=== PATIENT | female | born 1965 | race Caucasian/White ===

== ENCOUNTER 2022-02-12 20:53 | Emergency (ER) | payer MEDICAID, SELFPAY ==
[2022-02-12 21:26] VITALS: BP 120/58; PULSE 84; RESP 18; TEMP 36.6; O2SAT 99
--- NOTE | 2022-02-12 21:39 | CRLHL7_ITS ---
For Patients: As a result of the Century Cures Act, medical imaging exams and procedure reports are released immediately into your electronic medical record. You may view this report before your referring provider. If you have questions, please contact your health care provider. INDICATION: Right flank pain. TECHNIQUE: CT abdomen and pelvis without contrast. COMPARISON: None. FINDINGS: Lower chest: Unremarkable. Liver: Normal in size and attenuation. No suspicious masses. Gallbladder and bile ducts: No stones or inflammation. No biliary dilatation. Pancreas: Unremarkable. No mass or inflammation. Spleen: Normal in size. No masses. Adrenal glands: Right adrenal adenoma, stable from prior. Kidneys: Normal in size. No suspicious masses, stones, or hydronephrosis. GI tract: Redemonstrated mild thickening in the sigmoid colon with adjacent fat stranding (2/104) in small lymph nodes. Diverticulosis of the sigmoid colon. Normal appendix. Vasculature: Abdominal aorta is normal in caliber. Lymph nodes: No lymphadenopathy. Peritoneum/Abdominal Wall: Unremarkable. No sign of mass or infiltration. No free air or significant free fluid. Pelvis: Unremarkable. No pelvic masses. Bones: Unremarkable for age. IMPRESSION: Redemonstrated mild wall thickening, adjacent fat stranding and small lymph nodes adjacent to the mid sigmoid colon. This may represent mild acute uncomplicated diverticulitis similar to prior from June 22, 2021, however the persistence of the imaging finding is somewhat concerning for underlying neoplastic process. Consider post treatment colonoscopy. No renal stones, or hydronephrosis. Appendix is within normal limits. Please note that all CT scans at this facility use dose modulation, iterative reconstruction, and/or weight-based dosing when appropriate to reduce radiation dose to as low as reasonably achievable. Dictated by Ashlee Pulido MD @ 02/12/2022 10:47:49 PM (Electronically Signed)
--- NOTE | 2022-02-12 21:40 | CRLHL7_ITS ---
For Patients: As a result of the Century Cures Act, medical imaging exams and procedure reports are released immediately into your electronic medical record. You may view this report before your referring provider. If you have questions, please contact your health care provider. INDICATION: Right flank/back pain with breathing.. TECHNIQUE: Chest 2 views. COMPARISON: None. FINDINGS: Cardiovascular and mediastinum: Heart size and vasculature are normal in caliber and appearance. Lungs and pleural spaces: Lungs are clear. No sign of pleural effusion. No pneumothorax. Bones and soft tissues: No significant findings. IMPRESSION: No acute or significant findings. Dictated by Ashlee Pulido MD @ 02/12/2022 10:39:44 PM (Electronically Signed)
--- NOTE | 2022-02-12 21:41 | ED.GENADULT ---
HPI - General Adult General Time Seen by Provider: 21:41 Date Seen: 02/12/22 Chief complaint: Urogenital Problems, Female Stated complaint: UTI Headache Body Ache Time Seen by Provider: 02/12/22 21:33 Source: patient Mode of arrival: ambulatory Limitations: no limitations History of Present Illness HPI narrative: 57-year-old female who comes with flank pain and malaise. Patient was diagnosed with urinary tract infection 2 weeks ago, was started on antibiotics and felt better. She is not sure what antibiotic she took. Today she started having some right-sided flank pain, this is worse with breathing and movement. She also notes headache, body ache, nausea without vomiting, and chills. No fevers. No cough or breathing difficulty. No urinary symptoms. No diarrhea. She has taken Tylenol and ibuprofen for her symptoms. Related Data Home Medications Medication Instructions Recorded Confirmed benzonatate 100 mg capsule 100 mg PO Q6H PRN 02/12/22 02/12/22 cetirizine 10 mg tablet 10 mg PO DAILY 02/12/22 02/12/22 cholecalciferol (vitamin D3) 1,250 1,250 mcg PO QWEEK 02/12/22 02/12/22 mcg (50,000 unit) capsule famotidine 20 mg tablet 20 mg PO DAILY 02/12/22 02/12/22 ferrous gluconate 324 mg (38 mg 324 mg PO DAILY 02/12/22 02/12/22 iron) tablet fluticasone propionate 115 2 puff inhalation DAILY 02/12/22 02/12/22 mcg-salmeterol 21 mcg/actuation HFA inhaler (Advair HFA) ibuprofen 800 mg tablet 800 mg PO Q6H PRN 02/12/22 02/12/22 lisinopril 5 mg tablet 5 mg PO DAILY 02/12/22 02/12/22 naproxen 500 mg tablet 500 mg PO Q12H PRN 02/12/22 02/12/22 omeprazole 20 mg tablet,delayed 20 mg PO DAILY 02/12/22 02/12/22 release potassium chloride 20 mEq 20 meq PO BID 02/12/22 02/12/22 tablet,extended release(part/cryst) tiotropium bromide 18 mcg capsule 1 cap inhalation DAILY 02/12/22 02/12/22 with inhalation device (Spiriva with HandiHaler) venlafaxine 150 mg 150 mg PO DAILY 02/12/22 02/12/22 capsule,extended release 24 hr venlafaxine 75 mg capsule,extended 75 mg PO DAILY 02/12/22 02/12/22 release 24 hr Allergies Allergy/AdvReac Type Severity Reaction Status Date / Time No Known Drug Allergies Allergy Verified 02/12/22 21:28 Review of Systems Status of ROS: Reports: 10 or more systems reviewed and unremarkable except as noted in History and below PFSH PFS Medical History (Updated 02/12/22 @ 23:07 by Timoteo Ayala MD) CHF (congestive heart failure) Chronic lower back pain Chronic neck pain COPD (chronic obstructive pulmonary disease) Depression GERD (gastroesophageal reflux disease) H/O drug abuse Hyperlipemia Hypertension Hypokalemia Migraine Personality disorder Vitamin A deficiency Surgical History (Updated 02/12/22 @ 22:26 by Zohaib Church RN) No significant past surgical history Social History Smoking Status: Unknown if ever smoked Non-prescribed substance use: denies use Exam Narrative: Exam Narrative: General: Well-developed and well-nourished, no acute distress Head: Atraumatic and normocephalic Eyes: Pupils are equal reactive, extraocular motions intact, conjunctiva clear ENT: External nose and ears are normal, posterior pharynx without erythema or exudate Neck: No midline cervical tenderness, full spontaneous range of motion the neck, trachea midline, no adenopathy Heart: Regular rate and rhythm no murmurs or thrills Lungs: Clear to auscultation bilaterally without wheezes or crackles Abdomen: Soft, nontender, nondistended with active bowel sounds. Mild right CVA tenderness. Musculoskeletal: No tenderness, deformity, or edema Neurologic: Awake, alert, and oriented x3, no gross focal neurologic deficits, cranial nerves intact as tested Psych: Mood and affect are appropriate Skin: No rashes Const: Vital Signs, click to edit/add: Vital Signs - 24 hr 02/12/22 21:26 Temperature 97.8 F Pulse Rate [Right Pulse Oximeter] 84 Respiratory Rate 18 Blood Pressure [Ri ght Upper Arm] 120/58 L Pulse Oximetry 99 Oxygen Delivery Me thod Room Air Documenting provider has reviewed patient's vital signs: yes Course Course Hospital Course: Patient seen and examined, prior records are reviewed. Differential diagnosis includes but not limited to pyelonephritis, urinary tract infection, ureteral stone with renal colic, pneumonia, musculoskeletal pain, COVID infection, influenza. Patient presents with body aches, subjective fever, headache, and right flank pain. Recent UTI but she has no urinary symptoms at this time. Patient is afebrile with stable vital signs. She does have some right CVA tenderness. Lungs are clear, no abdominal tenderness. Labs, chest x-ray, and CT scan are ordered to evaluate for possible pneumonia or intra-abdominal cause of patient's flank pain including stone or pyelonephritis, appendicitis or acute cholecystitis less likely. IV fluids, Toradol are ordered. Reevaluation(s) Reevaluation #1: CT scans demonstrate findings of acute diverticulitis very similar to prior, Zosyn is ordered. Urinalysis with some red cells, quite contaminated. No evidence for kidney stone. Labs are pending. Zosyn ordered. Time: 23:05 Reevaluation #2: Labs reassuring including normal white blood cell count. Minimal improvement after Toradol, Dilaudid IV is ordered. Time: 23:35 Reevaluation #3: Pain improved after Dilaudid IV and patient is stable for discharge Time: 00:15 Vital Signs Vital signs: Initial Vital Signs Temperature 97.8 F 02/12/22 21:26 Temperature Source Temporal Artery Scan 02/12/22 21:26 Pulse Rate 84 02/12/22 21:26 Respiratory Rate 18 02/12/22 21:26 Blood Pressure 120/58 L 02/12/22 21:26 Blood Pressure Mean 78 02/12/22 21:26 Blood Pressure Position Supine 02/12/22 21:26 Pulse Oximetry 99 02/12/22 21:26 Oxygen Delivery Method 02/12/22 21:26 Vital Signs Temperature 97.8 F 02/12/22 21:26 Pulse Rate 84 02/12/22 21:26 Respiratory Rate 18 02/12/22 21:26 Blood Pressure 120/58 L 02/12/22 21:26 Pulse Oximetry 99 02/12/22 21:26 Oxygen Delivery Method 02/12/22 21:26 Temperature 97.8 F 02/12/22 21:26 Pulse Rate 84 02/12/22 21:26 Respiratory Rate 18 02/12/22 21:26 Blood Pressure 120/58 L 02/12/22 21:26 Pulse Oximetry 99 02/12/22 21:26 Oxygen Delivery Method 02/12/22 21:26 Medical Decision Making Medical Records Medical records reviewed: Yes I reviewed the patient's medical records Lab Data Lab results reviewed: Yes I reviewed the patient's lab results Labs: Lab Results 02/12/22 02/12/22 02/12/22 Range/Units 21:30 22:24 22:24 WBC 10.10 (4.50-11.00) K/uL RBC 4.55 (4.00-5.20) m/uL Hgb 13.0 (12.0-16.0) gm/dL Hct 41.4 (33.0-51.0) % MCV 91 (80-100) fL MCH 29 (26-34) pg MCHC 31 L (32-36) gm/dL Plt Count 241 (140-440) K/uL Neut % (Auto) 56.8 (42.0-72.0) % Lymph % (Auto) 21.8 (20-44) % Bollinger % (Auto) 15.6 H (0.0-11.0) % Eos % (Auto) 4.7 (0.0-7.0) % Baso % (Auto) 0.4 (0.0-3.0) % Neut # (Auto) 5.70 (1.7-7.0) K/uL Lymph # (Auto) 2.20 (0.90-2.90) K/uL Bollinger # (Auto) 1.60 H (0.00-0.90) K/UL Eos # (Auto) 0.50 (0.00-0.50) K/uL Baso # (Auto) 0.00 (0.00-0.30) K/uL Abs Immat Gran (auto) 0.10 (0.00-0.30) K/uL Imm/Tot Granulo (auto) 0.7 % Sodium (135-149) mmol/L Potassium (3.6-5.1) mmol/L Chloride (96-114) mmol/L Carbon Dioxide (20-32) mmol/L BUN (7-30) mg/dL Creatinine (0.5-1.5) mg/dL Estimated Creat Clear Estimated GFR ml/min Glucose (60-115) mg/dL Lactate 1.0 (0.5-1.9) mmol/L Calcium (8.4-10.6) mg/dL Total Bilirubin (0.1-1.5) mg/dL Direct Bilirubin (0.0-0.5) mg/dL AST (12-35) U/L ALT (4-35) U/L Alkaline Phosphatase (40-150) U/L Total Protein (6.0-8.3) g/dL Albumin (3.3-5.0) g/dL Lipase (23-300) U/L Urine Color Yellow (Yellow) Urine Appearance Cloudy A (Clear) Urine pH 6.0 (5.0-8.5) Ur Specific [place] >= 1.030 (1.000-1.030) Urine Protein 1+ A (Negative) Urine Glucose (UA) Negative (Negative) Urine Ketones Negative (Negative) Urine Blood Negative (Negative) Urine Nitrite Negative (Negative) Urine Bilirubin Negative (Negative) Urine Urobilinogen 0.2 (0.2-1.0) Ur Leukocyte Esterase Trace A (Negative) Urine RBC 5-10 A (0-2) Urine WBC 0-2 (0-5) Ur Squamous Epith Cells Moderate A (None-Few) Other Sediment CALCIUM OXALATE MARYAM (None) Urine Bacteria Moderate A (None) 02/12/22 Range/Units 22:45 WBC (4.50-11.00) K/uL RBC (4.00-5.20) m/uL Hgb (12.0-16.0) gm/dL Hct (33.0-51.0) % MCV (80-100) fL MCH (26-34) pg MCHC (32-36) gm/dL Plt Count (140-440) K/uL Neut % (Auto) (42.0-72.0) % Lymph % (Auto) (20-44) % Bollinger % (Auto) (0.0-11.0) % Eos % (Auto) (0.0-7.0) % Baso % (Auto) (0.0-3.0) % Neut # (Auto) (1.7-7.0) K/uL Lymph # (Auto) (0.90-2.90) K/uL Bollinger # (Auto) (0.00-0.90) K/UL Eos # (Auto) (0.00-0.50) K/uL Baso # (Auto) (0.00-0.30) K/uL Abs Immat Gran (auto) (0.00-0.30) K/uL Imm/Tot Granulo (auto) % Sodium 137 (135-149) mmol/L Potassium 3.5 L (3.6-5.1) mmol/L Chloride 105 (96-114) mmol/L Carbon Dioxide 29 (20-32) mmol/L BUN 12 (7-30) mg/dL Creatinine 0.6 (0.5-1.5) mg/dL Estimated Creat Clear 93.09 Estimated GFR 105 ml/min Glucose 144 H (60-115) mg/dL Lactate (0.5-1.9) mmol/L Calcium 8.3 L (8.4-10.6) mg/dL Total Bilirubin 0.2 (0.1-1.5) mg/dL Direct Bilirubin 0.2 (0.0-0.5) mg/dL AST 40 H (12-35) U/L ALT 57 H (4-35) U/L Alkaline Phosphatase 121 (40-150) U/L Total Protein 6.8 (6.0-8.3) g/dL Albumin 3.6 (3.3-5.0) g/dL Lipase 40 (23-300) U/L Urine Color (Yellow) Urine Appearance (Clear) Urine pH (5.0-8.5) Ur Specific [place] (1.000-1.030) Urine Protein (Negative) Urine Glucose (UA) (Negative) Urine Ketones (Negative) Urine Blood (Negative) Urine Nitrite (Negative) Urine Bilirubin (Negative) Urine Urobilinogen (0.2-1.0) Ur Leukocyte Esterase (Negative) Urine RBC (0-2) Urine WBC (0-5) Ur Squamous Epith Cells (None-Few) Other Sediment (None) Urine Bacteria (None) Imaging Data Chest x-ray: Attestation: I have reviewed the pertinent imaging results. My impression: Negative Radiologist's impression: Negative CT scan - abdomen: Attestation: I have reviewed the pertinent imaging results. Radiologist's impression: Acute uncomplicated diverticulitis Discharge Plan Discharge Clinical Impression: Acute diverticulitis Patient Disposition: Home, Self-Care Condition: Stable Instructions: Diverticulitis (ED) Additional Instructions: Follow-up with your doctor in 2-3 days. After you finish antibiotics, discuss having a colonoscopy for further evaluation for why you have had diverticulitis a couple of times recently. Activity Level: No Restrictions Discharge Diet: Regular Prescriptions: No Action omeprazole 20 mg tablet,delayed release (DR/EC) 20 mg PO DAILY potassium chloride 20 mEq tablet,ER particles/crystals 20 meq PO BID naproxen 500 mg tablet 500 mg PO Q12H PRN ibuprofen 800 mg tablet 800 mg PO Q6H PRN lisinopril 5 mg tablet 5 mg PO DAILY venlafaxine 150 mg capsule,extended release 24hr 150 mg PO DAILY Label Comments: TAKE ONE CAPSULE BY MOUTH ONCE DAILY WITH A MEAL. TAKE WITH 75 MG CAPSULE FOR A TOTAL DAILY DOSE OF 225 MG. venlafaxine 75 mg capsule,extended release 24hr 75 mg PO DAILY Spiriva with HandiHaler 18 mcg capsule, w/inhalation device 1 cap INHALATION DAILY Advair HFA 115-21 mcg/actuation HFA aerosol inhaler 2 puff INHALATION DAILY Label Comments: INHALE 2 PUFFS BY MOUTH TWICE DAILY benzonatate 100 mg capsule 100 mg PO Q6H PRN Label Comments: TAKE 1 CAPSULE BY MOUTH THREE TIMES DAILY IF NEEDED FOR COUGH cetirizine 10 mg tablet 10 mg PO DAILY ferrous gluconate 324 mg (38 mg iron) tablet 324 mg PO DAILY Label Comments: TAKE 1 TABLET BY MOUTH ONCE A DAY WITH A MEAL famotidine 20 mg tablet 20 mg PO DAILY cholecalciferol (vitamin D3) 1,250 mcg (50,000 unit) capsule 1,250 mcg PO QWEEK Label Comments: TAKE 1 CAPSULE BY MOUTH ONCE WEEKLY Stand Alone Forms: MyHealth Info Instructions
[2022-02-12 22:35] LABS: Appearance Urine Cloudy (Clear); Bilirubin Urine Negative (Negative); Blood Urine Negative (Negative); Color Urine Yellow (Yellow); Glucose Urine Negative (Negative); Ketones Urine Negative (Negative); Leukocyte Esterase Urine Trace (Negative); Nitrite Urine Negative (Negative); Protein Urine 1+ (Negative); Specific Gravity Urine >= 1.030 (1.000-1.030); Urobilinogen Urine 0.2 (0.2-1.0)
[2022-02-12] MEDS: KETOROLAC 15 MG/ML inj IVP (22:51)
[2022-02-12] MEDS: LACTATED RINGERS 1000 ML 1,000 ML IV (22:52)
[2022-02-12 22:54] LABS: Bacteria Urine Moderate; Squamous Epithelial Cell Urine Moderate (None-Few); WBC Urine 0-2 (0-5)
[2022-02-12 23:02] LABS: Albumin* 3.6 g/dL (3.3-5.0); Chloride* 105 mmol/L (96-114); Potassium* 3.5 mmol/L (3.6-5.1); Sodium* 137 mmol/L (135-149)
[2022-02-12 23:05] LABS: Alanine Aminotransferase* 57 U/L (4-35); Alkaline Phosphatase* 121 U/L (40-150); Aspartate Amino Transferase* 40 U/L (12-35); Bilirubin Direct* 0.2 mg/dL (0.0-0.5); Bilirubin Total* 0.2 mg/dL (0.1-1.5); Blood Urea Nitrogen* 12 mg/dL (7-30); Calcium* 8.3 mg/dL (8.4-10.6); Carbon Dioxide* 29 mmol/L (20-32); Creatinine* 0.6 mg/dL (0.5-1.5); Est. Creatinine Clearance* 93.09; Estimated Glomerular Filt Rate 105 ml/min; Glucose* 144 mg/dL (60-115); Lipase* 40 U/L (23-300); Total Protein* 6.8 g/dL (6.0-8.3)
[2022-02-12 23:21] LABS: Hematocrit 41.4 % (33.0-51.0); Mean Corpuscular HGB Conc 31 gm/dL (32-36); Mean Corpuscular Hemoglobin 29 pg (26-34); Mean Corpuscular Volume 91 fL (80-100); Platelet Count* 241 K/uL (140-440); Red Blood Count 4.55 m/uL (4.00-5.20)
[2022-02-12 23:22] LABS: Basophils Percent Auto 0.4 % (0.0-3.0); Eosinophils Percent Auto 4.7 % (0.0-7.0); Immature Granulocytes Pct Auto 0.7 %; Lymphocytes Percent Auto 21.8 % (20-44); Monocytes Percent Auto 15.6 % (0.0-11.0); Neutrophils Percent Auto 56.8 % (42.0-72.0); Slide Review Reflex No
[2022-02-12] MEDS: PIPERACILLIN/TAZOBACTAM 3.375 GM in 0.9 % SODIUM CHLORIDE Mini-bag 100 ML IVPB (23:28)
[2022-02-12] MEDS: HYDROmorphone 0.5 mg/0.5 ml inj IVP (23:49)
== END 2022-02-13 00:11 | disposition home or self-care (01) ==
PROVIDERS: Emergency Provider Family Medicine; PCP Internal Medicine
DX: K57.92 Diverticulitis of intestine, part unspecified, without perforation or abscess without bleeding (principal)
CPT/HCPCS: 36415; 71046; 74176; 80048; 80076; 81001; 83605; 83690; 85025; 87086; 87186; 96365; 96375; 99285; J1170; J1885; J2543; J7120

== ENCOUNTER 2022-08-14 14:55 | Inpatient (IN) | payer MEDICAID, SELFPAY ==
[2022-08-14] VITALS (12 sets, daily range): BP systolic 114–147; BP diastolic 49–69; PULSE 110–125; RESP 20–24; TEMP 36.4–38.4; O2SAT 91–99; BMI 27.5; BMI 28.1
--- NOTE | 2022-08-14 15:13 | ED_ITS ---
HPI - General Adult General Time Seen by Provider: 15:13 Date Seen: 08/14/22 Chief complaint: Shortness of Breath/Dyspnea Stated complaint: Short of breath Time Seen by Provider: 08/14/22 14:56 Source: patient and RN notes reviewed Mode of arrival: ambulatory Limitations: no limitations History of Present Illness HPI narrative: Patient is brought in by her son with cough, congestion fever and severe body aches. She states she has taken about 8 ibuprofen or Advil today. She has underlying CHF and COPD. She is feeling quite unwell and is not a very willing participant in the history. She is awake but shivering. She is febrile on arrival at 101.1? F. states she had some constipation last night but did go. Denies any abdominal pain, no nausea vomiting or diarrhea. I did ask her if she had taken a flu shot this year and she snapped that she did not and she was not going to. I did not follow up with questioning regarding COVID vaccination as she certainly did not seem happy with me when questioning about influenza vaccination. She had a neb about an hour prior to arrival. I do not know if she has had any definite contacts for illness as I did not ask her at this time, she is feeling quite poorly and feel it is more important to try to get interventions started. Related Data Home Medications Medication Instructions Recorded Confirmed benzonatate 100 mg capsule 100 mg PO Q6H PRN 02/12/22 02/12/22 cetirizine 10 mg tablet 10 mg PO DAILY 02/12/22 08/14/22 cholecalciferol (vitamin D3) 1,250 1,250 mcg PO QWEEK 02/12/22 02/12/22 mcg (50,000 unit) capsule famotidine 20 mg tablet 20 mg PO DAILY 02/12/22 08/14/22 ferrous gluconate 324 mg (38 mg 324 mg PO DAILY 02/12/22 02/12/22 iron) tablet fluticasone propionate 115 2 puff inhalation DAILY 02/12/22 08/14/22 mcg-salmeterol 21 mcg/actuation HFA inhaler (Advair HFA) ibuprofen 800 mg tablet 800 mg PO Q6H PRN 02/12/22 08/14/22 lisinopril 5 mg tablet 5 mg PO DAILY 02/12/22 08/14/22 naproxen 500 mg tablet 500 mg PO Q12H PRN 02/12/22 02/12/22 omeprazole 20 mg tablet,delayed 20 mg PO DAILY 02/12/22 02/12/22 release potassium chloride 20 mEq 20 meq PO BID 02/12/22 02/12/22 tablet,extended release(part/cryst) tiotropium bromide 18 mcg capsule 1 cap inhalation DAILY 02/12/22 02/12/22 with inhalation device (Spiriva with HandiHaler) venlafaxine 150 mg 150 mg PO DAILY 02/12/22 02/12/22 capsule,extended release 24 hr venlafaxine 75 mg capsule,extended 75 mg PO DAILY 02/12/22 02/12/22 release 24 hr fluconazole 150 mg tablet 150 mg PO .weekly 08/14/22 08/14/22 levofloxacin 500 mg tablet mg 08/14/22 Allergies Allergy/AdvReac Type Severity Reaction Status Date / Time No Known Drug Allergies Allergy Verified 08/14/22 15:08 Review of Systems Status of ROS: Reports: unobtainable due to medical condition [facility] Medical History CHF (congestive heart failure) Chronic lower back pain Chronic neck pain COPD (chronic obstructive pulmonary disease) Depression GERD (gastroesophageal reflux disease) H/O drug abuse Hyperlipemia Hypertension Hypokalemia Migraine Personality disorder Vitamin A deficiency Surgical History No significant past surgical history Social History Smoking Status: Current every day smoker What tobacco products do you use: cigarettes Smoking packs per day: 1 Smoking cigarettes per day: 20.0 How often do you have a drink containing alcohol: never AUDIT-C Alcohol total score: 0 Non-prescribed substance use: denies use service: No Exam Const: Vital Signs, click to edit/add: Vital Signs - 24 hr 08/14/22 15:03 08/14/22 17:32 08/14/22 16:00 Temperature 101.1 F H 97.5 F L Pulse Rate 119 H Pulse Rate [Left P ulse Oximeter] 125 H Respiratory Rate 20 Blood Pressure Blood Pressure [Ri ght Upper Arm] 130/59 L Pulse Oximetry 99 92 Oxygen Delivery Me thod Room Air 08/14/22 16:02 08/14/22 16:15 08/14/22 16:30 Temperature Pulse Rate 117 H 122 H 119 H Pulse Rate [Left P ulse Oximeter] Respiratory Rate Blood Pressure 138/68 Blood Pressure [Ri ght Upper Arm] Pulse Oximetry 93 91 92 Oxygen Delivery Me thod 08/14/22 16:32 08/14/22 17:02 08/14/22 17:04 Temperature Pulse Rate 120 H 113 H 110 H Pulse Rate [Left P ulse Oximeter] Respiratory Rate Blood Pressure 119/49 L 114/62 Blood Pressure [Ri ght Upper Arm] Pulse Oximetry 92 93 95 Oxygen Delivery Me thod Documenting provider has reviewed patient's vital signs: yes Common normals: average body habitus and oriented x3 General appearance: ill appearing Other: Prefers to keep her eyes closed but can open them when I ask her. She is shivering under blankets. After prompted her that I need to examine her to be able to help her. Reviewed with her that she presented to the ER ill and we are trying to help her. Her son is there and does help me set her up for examination when needed to. She is lying in the bed, can hear upper airway rhonchi. HENMT: Common normals: normocephalic, head/scalp atraumatic, hearing grossly normal bilaterally, external ears normal, external nose normal and nasal mucous membranes and turbinates normal Head and scalp: normocephalic and atraumatic Nose: external nose normal and nasal mucous membranes and turbinates normal External ear: external ears normal Other: Dry mucous membranes, atraumatic. Eye: Common normals: PERRL, EOMs intact bilaterally, conjunctivae normal and no scleral icterus Conjunctiva: conjunctiva(e) normal Pupil: PERRL Other: Patient had to be prompted to open her eyes for me. Neck & C-Spine: Common normals: full ROM, no lymphadenopathy, supple, no meningeal signs, no JVD and thyroid normal Thyroid: thyroid normal Chest: Common normals: inspection of chest normal Resp: Common normals: normal respiratory effort, no retractions and no use of accessory muscles Other: She does have some rhonchi which is more prominent on the left lung field posteriorly than the right. She does have some upper airway transmission as well but most definitely has some coarse lung sounds. I do not hear any wheezing. Cardio: Common normals: no JVD, regular rhythm, S1 normal heart sound, S2 normal heart sound, no gallops, no clicks and no murmurs Rate: tachycardic Rhythm: regular rhythm Heart sounds: S1 normal and S2 normal GI: Common normals: Normal to inspection, nondistended, normoactive bowel sounds present, soft to palpation, non-tender, no hepatosplenomegaly and no ma sses Palpation: soft and no hepatosplenomegaly Extremity: Other: She does move all extremities, note no focal deficit. She has no lower extremity edema. Neuro: Common normals: oriented x3 Meningeal signs: no meningeal signs Skin: Narrative: See no rash on visualized skin. Course Course Hospital Course: This certainly is infectious etiology, probably respiratory given her history. Bacterial versus viral is what we need to try to figure out. Have reviewed with her and her son that there is treatment options for both influenza as well as COVID. Bacterial pneumonia is always possible as well. I am doing a full complement of labs including blood cultures, triple viral swab. Will get a portable chest x-ray to start, they understand we may need to moved to chest CT if need be. She is tachycardic but is febrile. I have ordered 1000 mg oral Tylenol to see if we can help with fever management. I have also ordered a L of fluids over 2 hours. She will be watched closely, we will have her on cardiac monitoring and pulse oximetry. If we ascertain that this is bacterial in nature, do need to worry about sepsis. I have initiated some fluids to start covering for that possibility, again, will be watched closely for that reason while here. Reevaluation(s) Reevaluation #1: Patient refused CT scan. I went to talk to her as soon as nursing staff alerted me to this. Was not aware that she had refused this. We really need this piece of information to help us delineate exactly what is wrong with her and what to proceed with necks. Her white count is elevated, her chest x-ray is certainly abnormal, there is a possibility of a pericardial effusion. Her tachycardia is improved down to 113. She is not hypotensive. She is still oxygenating adequately on room air. Patient states she is hungry and did not say that she would not do the CT. From what I understand she was over in CT scan and refused and they brought her back over here. She did swear at me. I have reviewed with her that she is here for help, she came here, we are trying our best to help her and I am worried that she is gravely ill. She states she is not being difficult that she is just hungry and has not eaten of for couple of days. I reviewed with her that I really cannot letter eaten Leslie she might need something procedure early. It is possible that she might need something done for pericardial effusion, I am worried she actually is becoming septic and that this is bacterial. Her son had gone for a bit but is now back, she seems like she is going to agree to go over to the scanner. I have reviewed with her that she is not to swear at us, she is indeed being difficult for us to care for and I have asked her to try to work with us that we want to help her. Time: 17:12 Reevaluation #2: Patient's significant other and her son came back to review the CT findings. Tried awake patient and she yelled at need to quit yelling at her. I did review with her that I needed to talk to her about her CT report. She stated that she was going to answer me but she just could not get the words out quick enough. She did give me permission to talk about the CT report with her son and her significant other. We reviewed the concern of the finding of the right breast mass which certainly could be breast cancer. Did review with him that this will not likely be further worked up in the hospital. She will need an outpatient diagnostic mammogram +/-an ultrasound. Reviewed the left-sided upper and lower pneumonia which we are treating for with antibiotics. Reviewed she does not have COVID, RSV or influenza. Also reviewed the anemia, undefined at this point. Her significant other does not think she had a follow-up colonoscopy which was recommended after her diverticulitis treatment when she was here in the ER in February of 2022. At this time, patient was sleeping through most of this or not responding laying on her side. She is hemodynamically stable. I just wanted to make sure that this will get appropriate follow-up. Time: 18:46 Consultations Consultation #1: Have reviewed with Dr. Fine, will treat for community acquired pneumonia with Rocephin and azithromycin. She is tolerating oral fluids and has been demanding to eat, which we will now allow. Will give 2nd liter of IV fluids, calculate her needing about 2200cc for sepsis protocol. She has improved with just the first liter. With the IV antibiotics, she will be very close to 2200. Also ordering a follow up lactate to make sure that it is not increasing. Reviewed the drop in hemoglobin from her last labs in comparison from 02/2022. Time: 17:57 Vital Signs Vital signs: Initial Vital Signs Temperature 101.1 F H 08/14/22 15:03 Temperature Source Temporal Artery Scan 08/14/22 15:03 Pulse Rate 125 H 08/14/22 15:03 Respiratory Rate 20 08/14/22 15:03 Blood Pressure 130/59 L 08/14/22 15:03 Blood Pressure Mean 82 08/14/22 15:03 Blood Pressure Position Sitting 08/14/22 15:03 Pulse Oximetry 99 08/14/22 15:03 Oxygen Delivery Method 08/14/22 15:03 Vital Signs Temperature 101.1 F H 08/14/22 15:03 Pulse Rate 125 H 08/14/22 15:03 Respiratory Rate 20 08/14/22 15:03 Blood Pressure 130/59 L 08/14/22 15:03 Pulse Oximetry 99 08/14/22 15:03 Oxygen Delivery Method 08/14/22 15:03 Temperature 97.5 F L 08/14/22 17:32 Pulse Rate 110 H 08/14/22 17:04 Respiratory Rate 20 08/14/22 15:03 Blood Pressure 114/62 08/14/22 17:04 Pulse Oximetry 95 08/14/22 17:04 Oxygen Delivery Method 08/14/22 15:03 Medical Decision Making Lab Data Lab results reviewed: Yes I reviewed the patient's lab results Labs: Lab Results 08/14/22 08/14/22 08/14/22 Range/Units 15:27 15:44 15:44 WBC 25.14 H* (4.50-11.00) K/uL RBC 3.64 L (4.00-5.20) m/uL Hgb 9.3 L (12.0-16.0) gm/dL Hct 31.5 L (33.0-51.0) % MCV 87 (80-100) fL MCH 26 (26-34) pg MCHC 30 L (32-36) gm/dL RDW Coeff of Dolores 15.8 H (11.5-15.5) % Plt Count 292 (140-440) K/uL Neut % (Auto) 85.6 H (42.0-72.0) % Lymph % (Auto) 6.6 L (20-44) % [place] % (Auto) 7.1 (0.0-11.0) % Eos % (Auto) 0.2 (0.0-7.0) % Baso % (Auto) 0.1 (0.0-3.0) % Neut # (Auto) 21.50 H (1.7-7.0) K/uL Lymph # (Auto) 1.70 (0.90-2.90) K/uL [place] # (Auto) 1.80 H (0.00-0.90) K/UL Eos # (Auto) 0.10 (0.00-0.50) K/uL Baso # (Auto) 0.00 (0.00-0.30) K/uL Diff Slide Review Acceptable Review (Acceptable) VBG pH (7.32-7.43) VBG pCO2 (40-50) mmHG VBG pO2 (25-47) mmHG VBG HCO3 (21-28) mmol/L Sodium (135-149) mmol/L Potassium (3.6-5.1) mmol/L Chloride (96-114) mmol/L Carbon Dioxide (20-32) mmol/L BUN (7-30) mg/dL Creatinine (0.5-1.5) mg/dL Estimated Creat Clear Estimated GFR ml/min Glucose (60-115) mg/dL Lactate (0.5-1.9) mmol/L Calcium (8.4-10.6) mg/dL Total Bilirubin (0.1-1.5) mg/dL AST (12-35) U/L ALT (4-35) U/L Alkaline Phosphatase (40-150) U/L Troponin I (0.01-0.04) ng/mL C-Reactive Protein 7.9 H (0.5-1.0) mg/dL NT-Pro-B Natriuret Pep pg/mL Total Protein (6.0-8.3) g/dL Albumin (3.3-5.0) g/dL Procalcitonin (<0.50) ng/mL SARS-CoV-2 (PCR) Negative SARS-CoV-2 (Negative) Influenza Type A (PCR) Negative PCR FLU A (Negative) Influenza Type B (PCR) Negative PCR FLU B (Negative) RSV (PCR) Negative PCR RSV (Negative) 08/14/22 08/14/22 08/14/22 Range/Units 15:44 15:44 18:10 WBC (4.50-11.00) K/uL RBC (4.00-5.20) m/uL Hgb (12.0-16.0) gm/dL Hct (33.0-51.0) % MCV (80-100) fL MCH (26-34) pg MCHC (32-36) gm/dL RDW Coeff of Dolores (11.5-15.5) % Plt Count (140-440) K/uL Neut % (Auto) (42.0-72.0) % Lymph % (Auto) (20-44) % [place] % (Auto) (0.0-11.0) % Eos % (Auto) (0.0-7.0) % Baso % (Auto) (0.0-3.0) % Neut # (Auto) (1.7-7.0) K/uL Lymph # (Auto) (0.90-2.90) K/uL [place] # (Auto) (0.00-0.90) K/UL Eos # (Auto) (0.00-0.50) K/uL Baso # (Auto) (0.00-0.30) K/uL Diff Slide Review (Acceptable) VBG pH 7.453 H (7.32-7.43) VBG pCO2 37 L (40-50) mmHG VBG pO2 48.5 H (25-47) mmHG VBG HCO3 26 (21-28) mmol/L Sodium 135 (135-149) mmol/L Potassium 3.6 (3.6-5.1) mmol/L Chloride 106 (96-114) mmol/L Carbon Dioxide 26 (20-32) mmol/L BUN 9 (7-30) mg/dL Creatinine 0.4 L (0.5-1.5) mg/dL Estimated Creat Clear 139.63 Estimated GFR 115 ml/min Glucose 204 H (60-115) mg/dL Lactate 1.8 1.5 (0.5-1.9) mmol/L Calcium 8.5 (8.4-10.6) mg/dL Total Bilirubin 0.5 (0.1-1.5) mg/dL AST 22 (12-35) U/L ALT 23 (4-35) U/L Alkaline Phosphatase 80 (40-150) U/L Troponin I 0.03 (0.01-0.04) ng/mL C-Reactive Protein (0.5-1.0) mg/dL NT-Pro-B Natriuret Pep 1720 pg/mL Total Protein 6.7 (6.0-8.3) g/dL Albumin 3.8 (3.3-5.0) g/dL Procalcitonin 0.27 (<0.50) ng/mL SARS-CoV-2 (PCR) (Negative) Influenza Type A (PCR) (Negative) Influenza Type B (PCR) (Negative) RSV (PCR) (Negative) Imaging Data CT scan - chest: Attestation: I have reviewed the pertinent imaging results. My impression: My preliminary review of her chest CT is showing upper and lower lobe pneumonia on the left. I do not appreciate pericardial effusion but the heart does look enlarged. Radiologist's impression: Patient: STUART TINOCO Facility:?[facility] Patient ID:?[id number] Site Patient ID:?[id number]. Site :?[id number] Study:?CT Chest W/81CC ISOVUE 370-08/14/2022 5:39:06 PM Ordering Physician:Andreas Arredondo Final Report: INDICATION: Fever, abnormal chest x-ray. TECHNIQUE: CT chest was acquired with 81 cc Isovue 370 IV contrast. COMPARISON: None. FINDINGS: Lungs and pleura: Multi focal pneumonia, most pronounced in the left upper lobe, and to a lesser extent the left lower lobe. No pleural effusions, pleural thickening, or pneumothorax. Heart and vasculature: Cardiomegaly. No pericardial effusion. Thoracic aorta and pulmonary artery are normal in caliber.No central PE. Lymph nodes/mediastinum: Multiple mildly enlarged mediastinal lymph nodes, likely reactive. Chest wall: Indeterminate 2.3 centimeter right breast mass. Upper abdomen: Normal. Bones: Unremarkable for age. IMPRESSION: Multifocal pneumonia, most pronounced in the left upper lobe and to a lesser extent left lower lobe. Cardiomegaly. No pericardial effusion. Indeterminate 2.3 centimeter right breast mass. Recommend correlation with prior mammogram history. Consider outpatient evaluation with mammogram and ultrasound if medically necessary. Please note that all CT scans at this facility use dose modulation, iterative reconstruction, and/or weight-based dosing when appropriate to reduce radiation dose to as low as reasonably achievable. Dictated by Ryan Singh MD @ 08/14/2022 6:02:49 PM (Electronic Signature) ECG Data Attestation: I personally reviewed and interpreted this ECG as follows: (Sinus tachycardia, 118 beats per minute. Nonspecific ST segment changes, no definitive pattern of ischemia. QT corrected 465 milliseconds.) Prior ECG tracings: not available for review Critical Care Time Critical Care Time Critical Care Time: No Discharge Plan Discharge Clinical Impression: Community acquired pneumonia, Sepsis, Cardiomegaly, Anemia, Breast mass, right Patient Disposition: Admitted As Inpatient Condition: Improved
--- NOTE | 2022-08-14 15:19 | CRLHL7_ITS ---
For Patients: As a result of the Cures Act, medical imaging exams and procedure reports are released immediately into your electronic medical record. You may view this report before your referring provider. If you have questions, please contact your health care provider. INDICATION: Fever cough and COPD. COMPARISON: February 12, 2022 TECHNIQUE: A single view of the chest was acquired FINDINGS: TUBES AND LINES: None. HEART AND MEDIASTINUM: Mildly enlarged heart which appears to be new since the prior study. There is also a somewhat globular configuration raising the possibility of a pericardial effusion. LUNGS AND PLEURAL SPACES: Masslike consolidation at the left hilum. Consolidation at the left base. Diffuse airspace abnormality bilaterally. Probable small left effusion OSSEOUS STRUCTURES: Age-appropriate appearance. No acute focal finding. IMPRESSION: 1. Mildly enlarged heart. This appears new since the prior study. This has a globular configuration raising the possibility of a pericardial effusion. A CT of the chest is advised. 2. Masslike consolidation at the left hilum and consolidation at the left base. Elsewhere, there is diffuse airspace disease and a left effusion. Malignant versus inflammatory etiology should be considered. Dictated by Jeffery Gomez MD @ 08/14/2022 4:06:21 PM (Electronically Signed)
--- NOTE | 2022-08-14 15:33 | ED.NURSE ---
Lab notified of draw for 2nd set of blood cx.
[2022-08-14 15:55] LABS: HCO3 VBG 26 mmol/L (21-28); Lactate* 1.8 mmol/L (0.5-1.9); PCO2 VBG 37 mmHG (40-50); PO2 VBG 48.5 mmHG (25-47); pH VBG 7.453 (7.32-7.43)
[2022-08-14 16:13] LABS: Basophils Percent Auto 0.1 % (0.0-3.0); Eosinophils Percent Auto 0.2 % (0.0-7.0); Hematocrit 31.5 % (33.0-51.0); Hemoglobin* 9.3 gm/dL (12.0-16.0); Immature Granulocytes Pct Auto 0.4 %; Lymphocytes Percent Auto 6.6 % (20-44); Mean Corpuscular HGB Conc 30 gm/dL (32-36); Mean Corpuscular Hemoglobin 26 pg (26-34); Mean Corpuscular Volume 87 fL (80-100); Monocytes Percent Auto 7.1 % (0.0-11.0); Neutrophils Percent Auto 85.6 % (42.0-72.0); Platelet Count* 292 K/uL (140-440); RDW Coefficient of Variation % 15.8 % (11.5-15.5); Red Blood Count 3.64 m/uL (4.00-5.20)
[2022-08-14 16:15] LABS: PCR FLU A Negative PCR FLU A (Negative); PCR FLU B Negative PCR FLU B (Negative); PCR RSV Negative PCR RSV (Negative)
[2022-08-14 16:20] LABS: SARS PCR* Negative SARS-CoV-2 (Negative)
[2022-08-14 16:22] LABS: Albumin* 3.8 g/dL (3.3-5.0); Chloride* 106 mmol/L (96-114)
[2022-08-14 16:23] LABS: Potassium* 3.6 mmol/L (3.6-5.1); Sodium* 135 mmol/L (135-149)
[2022-08-14] MEDS: ACETAMINOPHEN 500 MG TABLET 1000 MG PO (16:23)
[2022-08-14 16:25] LABS: Aspartate Amino Transferase* 22 U/L (12-35); Bilirubin Total* 0.5 mg/dL (0.1-1.5); Carbon Dioxide* 26 mmol/L (20-32); Creatinine* 0.4 mg/dL (0.5-1.5); Est. Creatinine Clearance* 139.63; Estimated Glomerular Filt Rate 115 ml/min; Total Protein* 6.7 g/dL (6.0-8.3)
[2022-08-14 16:26] LABS: Alanine Aminotransferase* 23 U/L (4-35); Alkaline Phosphatase* 80 U/L (40-150); Blood Urea Nitrogen* 9 mg/dL (7-30); Calcium* 8.5 mg/dL (8.4-10.6); Glucose* 204 mg/dL (60-115)
--- NOTE | 2022-08-14 16:26 | CRLHL7_ITS ---
For Patients: As a result of the Century Cures Act, medical imaging exams and procedure reports are released immediately into your electronic medical record. You may view this report before your referring provider. If you have questions, please contact your health care provider. INDICATION: Fever, abnormal chest x-ray. TECHNIQUE: CT chest was acquired with 81 cc Isovue 370 IV contrast. COMPARISON: None. FINDINGS: Lungs and pleura: Multi focal pneumonia, most pronounced in the left upper lobe, and to a lesser extent the left lower lobe. No pleural effusions, pleural thickening, or pneumothorax. Heart and vasculature: Cardiomegaly. No pericardial effusion. Thoracic aorta and pulmonary artery are normal in caliber.No central PE. Lymph nodes/mediastinum: Multiple mildly enlarged mediastinal lymph nodes, likely reactive. Chest wall: Indeterminate 2.3 centimeter right breast mass. Upper abdomen: Normal. Bones: Unremarkable for age. IMPRESSION: Multifocal pneumonia, most pronounced in the left upper lobe and to a lesser extent left lower lobe. Cardiomegaly. No pericardial effusion. Indeterminate 2.3 centimeter right breast mass. Recommend correlation with prior mammogram history. Consider outpatient evaluation with mammogram and ultrasound if medically necessary. Please note that all CT scans at this facility use dose modulation, iterative reconstruction, and/or weight-based dosing when appropriate to reduce radiation dose to as low as reasonably achievable. Dictated by Ryan Singh MD @ 08/14/2022 6:02:49 PM (Electronically Signed)
[2022-08-14 16:30] LABS: C Reactive Protein* 7.9 mg/dL (0.5-1.0)
[2022-08-14 16:38] LABS: White Blood Count* 25.14 K/uL (4.50-11.00)
[2022-08-14 16:39] LABS: Troponin I* 0.03 ng/mL (0.01-0.04)
[2022-08-14 16:41] LABS: NT Pro B Type NatriureticPept* 1720 pg/mL
[2022-08-14 16:42] LABS: Procalcitonin* 0.27 ng/mL (<0.50)
[2022-08-14 17:10] LABS: Slide Review Reflex Yes
[2022-08-14 17:11] LABS: Slide Review Acceptable Review (Acceptable)
[2022-08-14] MEDS: 0.9 % SODIUM CHLORIDE 1000 ml 1,000 ML 500 ML IV ×2 (17:28→18:21)
[2022-08-14] MEDS: AZITHROMYCIN 250 MG TABLET 500 MG PO (18:03)
[2022-08-14 18:14] LABS: Lactate* 1.5 mmol/L (0.5-1.9)
--- NOTE | 2022-08-14 18:16 | W.PC.EDHO ---
Primary Language: Kyrgyz Preferred Language: Orientation Status: [X] Alert & Oriented [] Slight Confusion [] Known Dx Dementia Transfers By: [] Assist of 1 [] Assist of 2 [] Lift Active Medications Discontinued Medications Generic Name Dose Route Start Last Admin Trade Name Flor PRN Reason Stop Dose Admin Acetaminophen 1,000 mg 08/14/22 15:19 08/14/22 16:23 Acetaminophen 500 Mg Tablet PO 08/14/22 15:20 1,000 mg ONCE ONE Administration Azithromycin 500 mg 08/14/22 17:52 08/14/22 18:03 Azithromycin 250 Mg Tablet PO 08/14/22 17:53 500 mg ONCE ONE Administration Sodium Chloride 1,000 mls @ 500 mls/hr 08/14/22 15:22 08/14/22 17:28 0.9 % Sodium Chloride 1000 Ml IV 08/14/22 17:21 Infused .Q2H CAMILO Infusion Vancomycin HCl 1,500 mg/ 515 mls @ 343.333 mls/hr 08/14/22 16:45 08/14/22 17:28 Sodium Chloride IVPB 08/14/22 18:14 Infused ONCE ONE Infusion Protocol Description of Symptoms ED Triage Present Problem patient started to get sick last night running Description fever, congested, difficulty breathing, and chills , cold. Feeling sick pusle ox 94% on room air. hx copd and chf ED Triage Date of Onset of 08/14/22 Symptoms Female History Patient No Pain Pain Description [Generalized] Acute IV Insertion/Site Date of IV Line Insertion [ 08/14/22 Right Antecubital] Oxygen Administration Pulse Oximetry 95 Pulse Oximetry 93 Pulse Oximetry 92 Pulse Oximetry 92 Pulse Oximetry 91 Pulse Oximetry 93 Pulse Oximetry 92 Pulse Oximetry 99 Oxygen Delivery Method Room Air Cardiac Monitoring EKG Method 12 Lead
[2022-08-14] MEDS: cefTRIAXone 2 GM in 0.9 % SODIUM CHLORIDE Mini-bag 100 ML IVPB (19:05)
--- NOTE | 2022-08-14 20:26 | PM.IMHP1 ---
Hospitalist- H&P: HPI History of Present Illness Date Seen: 08/14/22 Chief complaint: Short of breath Narrative: Jessica Sweeney is a 57 year old female admitted to the hospital with 1 or 2 days of cough congestion and myalgias. Patient is quite sleepy and hard to give history. When she does wake up she has some agitation and difficulty giving history. History is obtained secondhand and from the medical record. She repair early was in relatively normal state of health until yesterday when she began having severe cough and congestion and body aches. She is unable to tell me if she was having fever or chills but has fever here. She has had 2 episodes of vomiting but denies abdominal pain. Nonbloody emesis. Reported some constipation today as well. She has not had chest pain. She has eaten very little today. Review of Systems Narrative: Unable to obtain due to altered mental status [facility] Medical History (Updated 08/14/22 @ 20:47 by Humberto Fine MD) Anxiety Cardiomegaly CHF (congestive heart failure) Chronic lower back pain Chronic neck pain COPD (chronic obstructive pulmonary disease) Depression GERD (gastroesophageal reflux disease) H/O drug abuse Hyperlipemia Hypertension Hypokalemia Iron deficiency anemia Left breast mass Migraine Personality disorder Sigmoid diverticulitis Tobacco use disorder Vitamin A deficiency Surgical History (Updated 08/14/22 @ 20:37 by Humberto Fine MD) History of breast biopsy History of section History of colonoscopy No significant past surgical history Family History (Updated 08/14/22 @ 20:38 by Humberto Fine MD) Father Heart disease FH: mental illness Mother High blood pressure Sister FH: mental illness Social History (Updated 08/14/22 @ 20:39 by Humberto Fine MD) Narrative: She lives in [place] with her boyfriend Jordan who she designates healthcare 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 Her code status is full. 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 She has 2 sons, 1 living at home. She does smoke cigarettes. She does not drink alcohol Smoking Status: Current every day smoker What tobacco products do you use: cigarettes Smoking packs per day: 1 Smoking cigarettes per day: 20.0 How often do you have a drink containing alcohol: never AUDIT-C Alcohol total score: 0 Non-prescribed substance use: denies use service: No Meds Home Medications and Allergies Home Medications Medication Instructions Recorded Confirmed Type benzonatate 100 mg capsule 100 mg PO Q6H PRN 02/12/22 02/12/22 History cetirizine 10 mg tablet 10 mg PO DAILY 02/12/22 08/14/22 History cholecalciferol (vitamin D3) 1,250 1,250 mcg PO QWEEK 02/12/22 02/12/22 History mcg (50,000 unit) capsule famotidine 20 mg tablet 20 mg PO DAILY 02/12/22 08/14/22 History ferrous gluconate 324 mg (38 mg 324 mg PO DAILY 02/12/22 02/12/22 History iron) tablet fluticasone propionate 115 2 puff inhalation DAILY 02/12/22 08/14/22 History mcg-salmeterol 21 mcg/actuation HFA inhaler (Advair HFA) ibuprofen 800 mg tablet 800 mg PO Q6H PRN 02/12/22 08/14/22 History lisinopril 5 mg tablet 5 mg PO DAILY 02/12/22 08/14/22 History naproxen 500 mg tablet 500 mg PO Q12H PRN 02/12/22 02/12/22 History omeprazole 20 mg tablet,delayed 20 mg PO DAILY 02/12/22 02/12/22 History release potassium chloride 20 mEq 20 meq PO BID 02/12/22 02/12/22 History tablet,extended release(part/cryst) tiotropium bromide 18 mcg capsule 1 cap inhalation DAILY 02/12/22 02/12/22 History with inhalation device (Spiriva with HandiHaler) venlafaxine 150 mg 150 mg PO DAILY 02/12/22 02/12/22 History capsule,extended release 24 hr venlafaxine 75 mg capsule,extended 75 mg PO DAILY 02/12/22 02/12/22 History release 24 hr fluconazole 150 mg tablet 150 mg PO .weekly 08/14/22 08/14/22 History levofloxacin 500 mg tablet mg 08/14/22 History Allergies Allergy/AdvReac Type Severity Reaction Status Date / Time No Known Drug Allergies Allergy Verified 08/14/22 15:08 Exam Narrative: Exam Narrative: She is somnolent but arouses to voice and to touch. When she does arouse she is somewhat agitated and then relatively quickly falls asleep. She is oriented to being in the hospital. Unable to give much history beyond that. Head is without trauma. Eyes are normal. Sclerae nonicteric. No facial asymmetry. Oropharynx with dry mucous membranes. Small airway. Neck is supple without mass or adenopathy. Respirations with prominent crackles in left lung bravo. Right lung bravo are relatively clear. No marked wheezing. She does have diminished breath sounds in right lung bravo. Cardiovascular: S1, S2, regular rate and rhythm. Distant heart sounds. Abdomen: Bowel sounds active. Abdomen is soft without tenderness or mass. Extremities without edema. She has good peripheral perfusion. Feet are warm to touch. Good capillary refill. She is not cooperate with motor testing but does move move all 4 extremities. Const: Vital Signs, click to edit/add: Vital Signs - 24 hr 08/14/22 15:03 08/14/22 17:32 08/14/22 16:00 Temperature 101.1 F H 97.5 F L Pulse Rate 119 H Pulse Rate [Left P ulse Oximeter] 125 H Respiratory Rate 20 Blood Pressure Blood Pressure [Ri ght Upper Arm] 130/59 L Pulse Oximetry 99 92 Oxygen Delivery Me thod Room Air 08/14/22 16:02 08/14/22 16:15 08/14/22 16:30 Temperature Pulse Rate 117 H 122 H 119 H Pulse Rate [Left P ulse Oximeter] Respiratory Rate Blood Pressure 138/68 Blood Pressure [Ri ght Upper Arm] Pulse Oximetry 93 91 92 Oxygen Delivery Me thod 08/14/22 16:32 08/14/22 17:02 08/14/22 17:04 Temperature Pulse Rate 120 H 113 H 110 H Pulse Rate [Left P ulse Oximeter] Respiratory Rate Blood Pressure 119/49 L 114/62 Blood Pressure [Ri ght Upper Arm] Pulse Oximetry 92 93 95 Oxygen Delivery Me thod Documenting provider has reviewed patient's vital signs: yes Hospitalist - H&P: Result Labs Labs: Short CBC 08/14/22 Range/Units 15:44 WBC 25.14 H* (4.50-11.00) K/uL Hgb 9.3 L (12.0-16.0) gm/dL Hct 31.5 L (33.0-51.0) % Plt Count 292 (140-440) K/uL BMP 08/14/22 15:44 Sodium 135 Potassium 3.6 Chloride 106 Carbon Dioxide 26 BUN 9 Creatinine 0.4 L Glucose 204 H Calcium 8.5 Cardiac Enzymes 08/14/22 Range/Units 15:44 Troponin I 0.03 (0.01-0.04) ng/mL Liver Function 08/14/22 Range/Units 15:44 Total Bilirubin 0.5 (0.1-1.5) mg/dL AST 22 (12-35) U/L ALT 23 (4-35) U/L Alkaline Phosphatase 80 (40-150) U/L Albumin 3.8 (3.3-5.0) g/dL Assessment and Plan Assessment and plan (1) Sepsis: Problem comment: On admission with fever, hypotension, tachycardia, altered mental status and hypoxic respiratory. Likely due to community-acquired pneumonia. Responded fairly well to fluid resuscitation and antibiotic therapy. Status: Acute (2) Community acquired pneumonia: Problem comment: Likely cause of sepsis and hypoxic respiratory failure. Had previous pneumonia in a similar location about 12 years ago. Status: Acute (3) COPD (chronic obstructive pulmonary disease): Problem comment: Contributing to hypoxic respiratory failure. Status: Acute (4) Altered mental status: Problem comment: Probably due to hypoxic respiratory failure and sepsis. Improved with resuscitation. Status: Acute (5) Iron deficiency anemia: Problem comment: History of iron deficiency anemia with new anemia in the last 6 months. From February 2022 until now her hemoglobin has dropped from 13-9.3. Monitor for acute bleeding. Trend hemoglobin. Check stool for guaiac. Had normal colonoscopy summer. February of 2022 had diverticulitis with recommended colonoscopy follow-up. Status: Acute (6) Tobacco use disorder: Status: Acute (7) Breast mass, right: Problem comment: Seen on chest CT 08/14/22. Patient's boyfriend and son and patient were informed of this by the emergency room doctor. Patient likely will not remember this conversation due to altered mental status. Outpatient follow-up Status: Acute Plan Patient admitted to the hospital for treatment of sepsis with hypoxic respiratory failure due to community-acquired pneumonia. IV antibiotics, fluid resuscitation as needed, monitoring for complications, supplemental oxygen. Anemia and breast mass could have initial assessment here but will need ongoing outpatient evaluation as well Total time spent today is 80 minutes, 60 minutes in coordination of care discussing with other providers ongoing evaluation management of sepsis, hypoxic respiratory failure and altered mental status.
[2022-08-14 21:07] LABS: Thyroid Stimulating Hormone* 0.336 uIU/mL (0.270-4.20)
[2022-08-14] MEDS: IPRAT-ALBUT 0.5-2.5 MG/3 ML NEB 1 NEB IH (21:16)
[2022-08-14] MEDS: predniSONE 20 MG TABLET 40 MG PO (21:17)
[2022-08-14] MEDS: POTASSIUM CITRATE 10 MEQ TABLET.ER 20 MEQ PO (21:19)
[2022-08-14] MEDS: OXYCODONE 5 MG TABLET PO (21:20)
[2022-08-14 23:52] LABS: Lab Add On Test New Spec Needed
[2022-08-15] MEDS: LACTATED RINGERS 1000 ML 1,000 ML 125 ML IV ×2 (00:18→08:01)
[2022-08-15] MEDS: IPRAT-ALBUT 0.5-2.5 MG/3 ML NEB 1 NEB IH ×2 (02:28→12:32)
[2022-08-15 02:33] LABS: Barbiturate Screen Urine Negative (Negative); Benzodiazepines Screen Urine Negative (Negative); Cocaine Screen Urine Negative (Negative); Methadone Screen Urine Negative (Negative); Opiate Screen Urine Negative (Negative); Phencyclidine Screen Urine Negative (Negative); Tricyclic Antidepressant Urine Negative (Negative)
[2022-08-15 02:34] LABS: Cannabinoid Screen Urine POSITIVE (Negative)
[2022-08-15 02:35] VITALS: BP 141/64; PULSE 106; RESP 22; TEMP 36.7; O2SAT 95
[2022-08-15 02:35] LABS: Amphetamine Screen Urine POSITIVE (Negative); Methamphetamines Screen Urine POSITIVE (Negative); Oxycodone Screen Urine POSITIVE (Negative)
--- NOTE | 2022-08-15 05:06 | PC.NURSE ---
Patient to unit at 1915. Agitated and verbally abusive toward staff. Patient was redirected and became more controlled. Sleepy. Patient had x1 more episode of agitation during shift. Son at bedside and supportive, also helpful to assist with deescalating situations of agitation. Afebrile. 1 Lt NC applied d/t SOB. PRN Oxycodone administered for L. sided rib pain. Intermittent productive cough. SBA.
[2022-08-15 06:36] LABS: HCO3 VBG 26 mmol/L (21-28); PCO2 VBG 46 mmHG (40-50); PO2 VBG 71.5 mmHG (25-47); pH VBG 7.357 (7.32-7.43)
[2022-08-15 06:37] LABS: Basophils Percent Auto 0.1 % (0.0-3.0); Hemoglobin* 8.9 gm/dL (12.0-16.0); Immature Granulocytes Pct Auto 0.4 %; Lymphocytes Percent Auto 3.3 % (20-44); Mean Corpuscular HGB Conc 29 gm/dL (32-36); Mean Corpuscular Hemoglobin 26 pg (26-34); Mean Corpuscular Volume 89 fL (80-100); Neutrophils Percent Auto 93.2 % (42.0-72.0); Platelet Count* 266 K/uL (140-440); RDW Coefficient of Variation % 16.1 % (11.5-15.5); Red Blood Count 3.49 m/uL (4.00-5.20); Slide Review Reflex No; White Blood Count* 24.78 K/uL (4.50-11.00)
[2022-08-15 06:48] LABS: Immature Reticulocyte Fraction 18.4 % (3.0-15.9); Reticulocyte Hemoglobin Equivi 19.1 pg (29.0-35.0); Reticulocyte Percent 2.4 % (0.5-2.0); Reticulocytes Absolute 0.08 # (0.03-0.08)
[2022-08-15 06:56] LABS: Chloride* 110 mmol/L (96-114); Potassium* 3.9 mmol/L (3.6-5.1); Sodium* 139 mmol/L (135-149)
[2022-08-15 07:00] LABS: Blood Urea Nitrogen* 9 mg/dL (7-30); Calcium* 8.6 mg/dL (8.4-10.6); Carbon Dioxide* 23 mmol/L (20-32); Creatinine* 0.4 mg/dL (0.5-1.5); Est. Creatinine Clearance* 139.63; Estimated Glomerular Filt Rate 115 ml/min; Glucose* 316 mg/dL (60-115)
[2022-08-15 07:09] LABS: Troponin I* 0.02 ng/mL (0.01-0.04)
[2022-08-15 07:18] LABS: C Reactive Protein* 22.3 mg/dL (0.5-1.0)
[2022-08-15] MEDS: OXYCODONE 5 MG TABLET PO (07:54)
[2022-08-15] MEDS: predniSONE 20 MG TABLET 40 MG PO (07:54)
[2022-08-15 07:55] VITALS: BP 150/73; PULSE 112; RESP 18; TEMP 36.7; O2SAT 96; O2SAT 98
[2022-08-15] MEDS: OMEPRAZOLE 20 MG CAPSULE DR PO (08:23)
[2022-08-15] MEDS: CETIRIZINE HCL 10 MG TABLET PO (08:23)
[2022-08-15] MEDS: FAMOTIDINE 20 MG TABLET PO (08:23)
[2022-08-15] MEDS: FERROUS SULFATE 325 MG TABLET PO (08:25)
[2022-08-15] MEDS: VENLAFAXINE ER 75 MG CAPSULE 225 MG PO (09:04)
[2022-08-15] MEDS: AZITHROMYCIN 250 MG TABLET 500 MG PO (09:04)
[2022-08-15] MEDS: POTASSIUM CITRATE 10 MEQ TABLET.ER 20 MEQ PO (09:04)
[2022-08-15] MEDS: cefTRIAXone 1 GM in 0.9 % SODIUM CHLORIDE Mini-bag 100 ML IVPB (09:04)
--- NOTE | 2022-08-15 11:20 | RESP.RT ---
Per nursing pt is not taking nebs as scheduled. Went in to speak to pt. She again defers taking a neb treatment. She is sleeping on her side, and refuses to sit up or let me put bed up. She tells me to come back later. Provider notified. Did ask if she has had a sleep study evaluation, states she is getting one in [facility] in August.
--- NOTE | 2022-08-15 11:24 | P.DS_ITS ---
DS: Providers Provider Time Seen by Provider: 11:15 Date Seen: 08/15/22 Date of admission: 08/14/22 19:17 Primary care physician: Carola Deshpande Admitting Clinician: Humberto Fine MD Consults: 08/14/22 18:25 Consult to Respiratory Therapy [CONS] Routine Comment: Reason(s) for RT Consult:: Consult Attending Physician on discharge: Justyna Cheng MD Date of Discharge: 08/15/22 DS: Diagnosis Discharge Diagnosis (1) Altered mental status: Status: Acute Problem details: Probably due to hypoxic respiratory failure and sepsis. Improved with resuscitation. (2) COPD (chronic obstructive pulmonary disease): Status: Acute Problem details: Contributing to hypoxic respiratory failure. (3) Iron deficiency anemia: Status: Acute Problem details: History of iron deficiency anemia with new anemia in the last 6 months. From February 2022 until now her hemoglobin has dropped from 13-9.3. Monitor for acute bleeding. Trend hemoglobin. Check stool for guaiac. Had normal colonoscopy summer. February of 2022 had diverticulitis with recommended colonoscopy follow-up. (4) Tobacco use disorder: Status: Acute (5) Community acquired pneumonia: Status: Acute Problem details: Likely cause of sepsis and hypoxic respiratory failure. Had previous pneumonia in a similar location about 12 years ago. (6) Sepsis: Status: Acute Problem details: On admission with fever, hypotension, tachycardia, altered mental status and hypoxic respiratory. Likely due to community-acquired pneumonia. Responded fairly well to fluid resuscitation and antibiotic therapy. (7) Anemia: Status: Acute (8) Breast mass, right: Status: Acute Problem details: Seen on chest CT 08/14/22. Patient's boyfriend and son and patient were informed of this by the emergency room doctor. Patient likely will not remember this conversation due to altered mental status. Outpatient follow-up (9) Hemoptysis: Status: Acute Problem details: Patient reports this started on Sunday, 5 days ago, hemoglobin was 9.3 on admission and 8.9 today. She is also taking aspirin daily at home. I have asked her to hold that for now. DS: Summary Hospital Course Hospital Course: This is a 57-year-old female who has had 1-2 days of cough, congestion, and myalgias. She was quite sleepy yesterday, but woke up in the evening and has been verbally abusive to staff since then. Urine tox screen was positive for oxycodone, methamphetamines, amphetamines and marijuana. Her son has been staying with her and this morning he is sleeping through every conversation that staff has had with the patient. Several times during the hospital stay she has refused cares or medications because she was sleepy or ?too full after eating.? She has not been requiring any oxygen overnight. This morning she complains of hemoptysis, but notes that has been going on since Sunday. She is on daily aspirin. I attempted to discuss this further with her as well as give her information about the breast mass that was seen on CT. She talked over me most of the time even when I asked her to listen so that I can give her information. She then commented ?do you have anything else negative to say to me?? She said that if I discharged her today, she would just end up coming back because that is what is happened when she has had pneumonia in the past. She said that her the only people to care for her at home are her 13-year-old son and the son who was sleeping nearby in the room who had not woken up for this conversation. I noted that she was sitting on the side of her bed and that there was no realize or medication that we were giving her that she could not give 2 herself at home even without their help. She asked to talk with the physician that admitted her and to talk with her primary care provider and administration because she did not want to go home today. Again I had a lot of trouble talking with her to give her information because any time I started a sentence she would talk over me. She told me that the nurses are lying about her refusing anything. Time Spent with Patient Time attestation: Total time spent providing and/or coordinating discharge services: Exam Narrative: Exam Narrative: General: No acute distress. Awake, alert, oriented x3. Sitting on the side of the bed. Talking rapidly without difficulty. Agitated and angry even before I started talking with her. Demanding. No pallor. No jaundice. Oropharynx: Clear. Mucous membranes moist. Cardiovascular: Regular rate and rhythm. No murmurs, gallops, or rubs. Respiratory: A few scattered crackles prior to coughing, but after cough clear to auscultation bilaterally. No wheezes or crackles. Abdomen: Bowel sounds present. Soft, nondistended, nontender. Extremities: No pedal edema. Const: Vital Signs, click to edit/add: Vital Signs - 24 hr 08/14/22 15:03 08/14/22 17:32 08/14/22 16:00 Temperature 101.1 F H 97.5 F L Pulse Rate 119 H Pulse Rate [Left P ulse Oximeter] 125 H Pulse Rate [Pulse Oximeter] Respiratory Rate 20 Blood Pressure Blood Pressure [Le ft Arm] Blood Pressure [Ri ght Upper Arm] 130/59 L Pulse Oximetry 99 92 Oxygen Delivery Me thod Room Air Oxygen Flow Rate 08/14/22 16:02 08/14/22 16:15 08/14/22 16:30 Temperature Pulse Rate 117 H 122 H 119 H Pulse Rate [Left P ulse Oximeter] Pulse Rate [Pulse Oximeter] Respiratory Rate Blood Pressure 138/68 Blood Pressure [Le ft Arm] Blood Pressure [Ri ght Upper Arm] Pulse Oximetry 93 91 92 Oxygen Delivery Me thod Oxygen Flow Rate 08/14/22 16:32 08/14/22 17:02 08/14/22 17:04 Temperature Pulse Rate 120 H 113 H 110 H Pulse Rate [Left P ulse Oximeter] Pulse Rate [Pulse Oximeter] Respiratory Rate Blood Pressure 119/49 L 114/62 Blood Pressure [Le ft Arm] Blood Pressure [Ri ght Upper Arm] Pulse Oximetry 92 93 95 Oxygen Delivery Me thod Oxygen Flow Rate 08/14/22 22:53 08/14/22 22:23 08/14/22 22:23 Temperature 98.3 F 98.5 F Pulse Rate Pulse Rate [Left P ulse Oximeter] Pulse Rate [Pulse Oximeter] 116 H 114 H Respiratory Rate 24 22 Blood Pressure Blood Pressure [Le ft Arm] 137/69 147/62 H Blood Pressure [Ri ght Upper Arm] Pulse Oximetry 93 91 91 Oxygen Delivery Me thod Nasal Cannula Room Air Room Air Oxygen Flow Rate 1.0 08/14/22 23:00 08/14/22 23:00 08/14/22 23:00 Temperature Pulse Rate Pulse Rate [Left P ulse Oximeter] Pulse Rate [Pulse Oximeter] Respiratory Rate 24 24 Blood Pressure Blood Pressure [Le ft Arm] Blood Pressure [Ri ght Upper Arm] Pulse Oximetry 93 93 Oxygen Delivery Me thod Nasal Cannula Oxygen Flow Rate 1.0 08/15/22 02:35 08/15/22 07:55 08/15/22 07:55 Temperature 98.1 F Pulse Rate Pulse Rate [Left P ulse Oximeter] Pulse Rate [Pulse Oximeter] 106 H Respiratory Rate 22 Blood Pressure Blood Pressure [Le ft Arm] 141/64 H Blood Pressure [Ri ght Upper Arm] Pulse Oximetry 95 96 98 Oxygen Delivery Me thod Room Air Room Air Oxygen Flow Rate 08/15/22 07:55 Temperature 98.1 F Pulse Rate Pulse Rate [Left P ulse Oximeter] Pulse Rate [Pulse Oximeter] 112 H Respiratory Rate 18 Blood Pressure Blood Pressure [Le ft Arm] 150/73 H Blood Pressure [Ri ght Upper Arm] Pulse Oximetry 96 Oxygen Delivery Me thod Room Air Oxygen Flow Rate Documenting provider has reviewed patient's vital signs: yes DS: Data Data Completed and Pending Completed studies during hospitalization: Ordering Physician: Maria Elena Perez M.D. Date of Service: 08/14/22 Procedure(s): XR chest 1V portable Accession Number(s): [id number] cc: Maria Elena Perez M.D.; Carola Deshpande ~ For Patients: As a result of the Cures Act, medical imaging exams and procedure reports are released immediately into your electronic medical record. You may view this report before your referring provider. If you have questions, please contact your health care provider. INDICATION: Fever cough and COPD. COMPARISON: February 12, 2022 TECHNIQUE: A single view of the chest was acquired FINDINGS: TUBES AND LINES: None. HEART AND MEDIASTINUM: Mildly enlarged heart which appears to be new since the prior study. There is also a somewhat globular configuration raising the possibility of a pericardial effusion. LUNGS AND PLEURAL SPACES: Masslike consolidation at the left hilum. Consolidation at the left base. Diffuse airspace abnormality bilaterally. Probable small left effusion OSSEOUS STRUCTURES: Age-appropriate appearance. No acute focal finding. IMPRESSION: 1. Mildly enlarged heart. This appears new since the prior study. This has a globular configuration raising the possibility of a pericardial effusion. A CT of the chest is advised. 2. Masslike consolidation at the left hilum and consolidation at the left base. Elsewhere, there is diffuse airspace disease and a left effusion. Malignant versus inflammatory etiology should be considered. Dictated by Jeffery Gomez MD @ 08/14/2022 4:06:21 PM (Electronically Signed) Ordering Physician: Maria Elena Perez M.D. Date of Service: 08/14/22 Procedure(s): CT chest w con Accession Number(s): [id number] cc: Maria Elena Perez M.D.; JeramyCarola ~ For Patients: As a result of the Cures Act, medical imaging exams and procedure reports are released immediately into your electronic medical record. You may view this report before your referring provider. If you have questions, please contact your health care provider. INDICATION: Fever, abnormal chest x-ray. TECHNIQUE: CT chest was acquired with 81 cc Isovue 370 IV contrast. COMPARISON: None. FINDINGS: Lungs and pleura: Multi focal pneumonia, most pronounced in the left upper lobe, and to a lesser extent the left lower lobe. No pleural effusions, pleural thickening, or pneumothorax. Heart and vasculature: Cardiomegaly. No pericardial effusion. Thoracic aorta and pulmonary artery are normal in caliber.No central PE. Lymph nodes/mediastinum: Multiple mildly enlarged mediastinal lymph nodes, likely reactive. Chest wall: Indeterminate 2.3 centimeter right breast mass. Upper abdomen: Normal. Bones: Unremarkable for age. IMPRESSION: Multifocal pneumonia, most pronounced in the left upper lobe and to a lesser extent left lower lobe. Cardiomegaly. No pericardial effusion. Indeterminate 2.3 centimeter right breast mass. Recommend correlation with prior mammogram history. Consider outpatient evaluation with mammogram and ultrasound if medically necessary. Please note that all CT scans at this facility use dose modulation, iterative reconstruction, and/or weight-based dosing when appropriate to reduce radiation dose to as low as reasonably achievable. Dictated by Ryan Singh MD @ 08/14/2022 6:02:49 PM (Electronically Signed) Labs on day of discharge: Labs from last 24 hours 08/15/22 08/15/22 08/15/22 Unknown 05:36 05:36 WBC 24.78 H RBC 3.49 L Hgb 8.9 L Hct 31.0 L MCV 89 MCH 26 MCHC 29 L RDW Coeff of Dolores 16.1 H Plt Count 266 Neut % (Auto) 93.2 H Lymph % (Auto) 3.3 L Mcnairy % (Auto) 3.0 Eos % (Auto) 0.0 Baso % (Auto) 0.1 Neut # (Auto) 23.10 H Lymph # (Auto) 0.80 L Mcnairy # (Auto) 0.70 Eos # (Auto) 0.00 Baso # (Auto) 0.00 Diff Slide Review Absolute Retic 0.08 Percent Retic 2.4 H Immature Retic Fraction 18.4 H Retic Hgb Equivalent 19.1 L VBG pH 7.357 VBG pCO2 46 VBG pO2 71.5 H VBG HCO3 26 Sodium Potassium Chloride Carbon Dioxide BUN Creatinine Estimated Creat Clear Estimated GFR Glucose Lactate Calcium Total Bilirubin AST ALT Alkaline Phosphatase Troponin I C-Reactive Protein NT-Pro-B Natriuret Pep Total Protein Albumin Procalcitonin TSH Urine Opiates Screen Ur Oxycodone Screen Urine Methadone Screen Ur Propoxyphene Screen Ur Barbiturates Screen U Tricyclic Antidepress Ur Phencyclidine Scrn Ur Amphetamines Screen U Methamphetamines Scrn U Benzodiazepines Scrn Urine Cocaine Screen U Marijuana (THC) Screen Ur Drug Screen Comment SARS-CoV-2 (PCR) Influenza Type A (PCR) Influenza Type B (PCR) RSV (PCR) 08/15/22 08/15/22 08/14/22 05:36 02:15 18:10 WBC RBC Hgb Hct MCV MCH MCHC RDW Coeff of Dolores Plt Count Neut % (Auto) Lymph % (Auto) Mcnairy % (Auto) Eos % (Auto) Baso % (Auto) Neut # (Auto) Lymph # (Auto) Mcnairy # (Auto) Eos # (Auto) Baso # (Auto) Diff Slide Review Absolute Retic Percent Retic Immature Retic Fraction Retic Hgb Equivalent VBG pH VBG pCO2 VBG pO2 VBG HCO3 Sodium 139 Potassium 3.9 Chloride 110 Carbon Dioxide 23 BUN 9 Creatinine 0.4 L Estimated Creat Clear 139.63 Estimated GFR 115 Glucose 316 H Lactate 1.5 Calcium 8.6 Total Bilirubin AST ALT Alkaline Phosphatase Troponin I 0.02 C-Reactive Protein 22.3 H NT-Pro-B Natriuret Pep Total Protein Albumin Procalcitonin TSH Urine Opiates Screen Negative Ur Oxycodone Screen POSITIVE A* Urine Methadone Screen Negative Ur Propoxyphene Screen Negative Ur Barbiturates Screen Negative U Tricyclic Antidepress Negative Ur Phencyclidine Scrn Negative Ur Amphetamines Screen POSITIVE A* U Methamphetamines Scrn POSITIVE A* U Benzodiazepines Scrn Negative Urine Cocaine Screen Negative U Marijuana (THC) Screen POSITIVE A* Ur Drug Screen Comment See Note SARS-CoV-2 (PCR) Influenza Type A (PCR) Influenza Type B (PCR) RSV (PCR) 08/14/22 08/14/22 08/14/22 15:44 15:44 15:44 WBC RBC Hgb Hct MCV MCH MCHC RDW Coeff of Dolores Plt Count Neut % (Auto) Lymph % (Auto) Mcnairy % (Auto) Eos % (Auto) Baso % (Auto) Neut # (Auto) Lymph # (Auto) Mcnairy # (Auto) Eos # (Auto) Baso # (Auto) Diff Slide Review Absolute Retic Percent Retic Immature Retic Fraction Retic Hgb Equivalent VBG pH 7.453 H VBG pCO2 37 L VBG pO2 48.5 H VBG HCO3 26 Sodium 135 Potassium 3.6 Chloride 106 Carbon Dioxide 26 BUN 9 Creatinine 0.4 L Estimated Creat Clear 139.63 Estimated GFR 115 Glucose 204 H Lactate 1.8 Calcium 8.5 Total Bilirubin 0.5 AST 22 ALT 23 Alkaline Phosphatase 80 Troponin I 0.03 C-Reactive Protein NT-Pro-B Natriuret Pep 1720 Total Protein 6.7 Albumin 3.8 Procalcitonin 0.27 TSH 0.336 Urine Opiates Screen Ur Oxycodone Screen Urine Methadone Screen Ur Propoxyphene Screen Ur Barbiturates Screen U Tricyclic Antidepress Ur Phencyclidine Scrn Ur Amphetamines Screen U Methamphetamines Scrn U Benzodiazepines Scrn Urine Cocaine Screen U Marijuana (THC) Screen Ur Drug Screen Comment SARS-CoV-2 (PCR) Influenza Type A (PCR) Influenza Type B (PCR) RSV (PCR) 08/14/22 08/14/22 08/14/22 15:44 15:44 15:27 WBC 25.14 H* RBC 3.64 L Hgb 9.3 L Hct 31.5 L MCV 87 MCH 26 MCHC 30 L RDW Coeff of Dolores 15.8 H Plt Count 292 Neut % (Auto) 85.6 H Lymph % (Auto) 6.6 L Mcnairy % (Auto) 7.1 Eos % (Auto) 0.2 Baso % (Auto) 0.1 Neut # (Auto) 21.50 H Lymph # (Auto) 1.70 Mcnairy # (Auto) 1.80 H Eos # (Auto) 0.10 Baso # (Auto) 0.00 Diff Slide Review Acceptable Review Absolute Retic Percent Retic Immature Retic Fraction Retic Hgb Equivalent VBG pH VBG pCO2 VBG pO2 VBG HCO3 Sodium Potassium Chloride Carbon Dioxide BUN Creatinine Estimated Creat Clear Estimated GFR Glucose Lactate Calcium Total Bilirubin AST ALT Alkaline Phosphatase Troponin I C-Reactive Protein 7.9 H NT-Pro-B Natriuret Pep Total Protein Albumin Procalcitonin TSH Urine Opiates Screen Ur Oxycodone Screen Urine Methadone Screen Ur Propoxyphene Screen Ur Barbiturates Screen U Tricyclic Antidepress Ur Phencyclidine Scrn Ur Amphetamines Screen U Methamphetamines Scrn U Benzodiazepines Scrn Urine Cocaine Screen U Marijuana (THC) Screen Ur Drug Screen Comment SARS-CoV-2 (PCR) Negative SARS-CoV-2 Influenza Type A (PCR) Negative PCR FLU A Influenza Type B (PCR) Negative PCR FLU B RSV (PCR) Negative PCR RSV Preliminary micro results at discharge 08/14/22 15:47 Blood Culture - Preliminary Blood No growth. 08/14/22 15:44 Blood Culture - Preliminary Blood No growth. Discharge Plan Discharge Disposition: Home, Self-Care Date of Admission: 08/14/22 19:17 Attending Provider on Discharge: Justyna Cheng Primary Care Provider: Carola Deshpande Condition: Improved Anticipated Discharge Date/Time: 08/15/22 11:47 Discharge Medications: New albuterol sulfate [ProAir HFA] 90 mcg/actuation HFA aerosol inhaler 2 puff inhalation Q4-6H PRN (Reason: shortness of breath or wheezing) Qty: 8.5 0RF azithromycin 250 mg Tablet 250 mg PO Q24H Qty: 6 0RF cefdinir 300 mg capsule 300 mg PO BID Qty: 14 0RF prednisone 20 mg Tablet 40 mg PO DAILYWM Qty: 4 0RF Rx Instructions: Take 40 mg daily tomorrow and next day, then resume taper of prednisone previously prescribed. Continued omeprazole 20 mg tablet,delayed release (DR/EC) 20 mg PO DAILY potassium chloride 20 mEq tablet,ER particles/crystals 20 meq PO BID lisinopril 5 mg tablet 5 mg PO DAILY venlafaxine 150 mg capsule,extended release 24hr 150 mg PO DAILY Label Comments: TAKE ONE CAPSULE BY MOUTH ONCE DAILY WITH A MEAL. TAKE WITH 75 MG CAPSULE FOR A TOTAL DAILY DOSE OF 225 MG. venlafaxine 75 mg capsule,extended release 24hr 75 mg PO DAILY Spiriva with HandiHaler 18 mcg capsule, w/inhalation device 1 cap INHALATION DAILY Advair HFA 115-21 mcg/actuation HFA aerosol inhaler 2 puff INHALATION DAILY Label Comments: INHALE 2 PUFFS BY MOUTH TWICE DAILY benzonatate 100 mg capsule 100 mg PO Q6H PRN Label Comments: TAKE 1 CAPSULE BY MOUTH THREE TIMES DAILY IF NEEDED FOR COUGH cetirizine 10 mg tablet 10 mg PO DAILY ferrous gluconate 324 mg (38 mg iron) tablet 324 mg PO DAILY Label Comments: TAKE 1 TABLET BY MOUTH ONCE A DAY WITH A MEAL famotidine 20 mg tablet 20 mg PO DAILY cholecalciferol (vitamin D3) 1,250 mcg (50,000 unit) capsule 1,250 mcg PO QWEEK Label Comments: TAKE 1 CAPSULE BY MOUTH ONCE WEEKLY fluconazole 150 mg tablet 150 mg PO .weekly Label Comments: TAKE 1 TABLET BY MOUTH 1 TIME A WEEK FOR 3 WEEKS Discontinued naproxen 500 mg tablet 500 mg PO Q12H PRN ibuprofen 800 mg tablet 800 mg PO Q6H PRN levofloxacin 500 mg tablet Discharge Orders: Discharge Order (Routine); Ordered 08/15/22 Ordered By: Justyna Cheng Patient Education: Hemoptysis (ED), Bacterial Pneumonia (DC), Breast Mass (ED) Additional Instructions: - Hold all aspirin, ibuprofen, aleve, other NSAIDs. - Avoid amphetamines and methamphetamines as these will increase blood pressure and cause rapid heart rate and can worsen hemoptysis (coughing up blood). - Follow up with PCP to discuss next steps for following up on right breast mass that was seen on CT. Activity Level: No Restrictions Discharge Diet: Heart Healthy (2 gm sodium, low fat) Follow Up Appointments: Carola Deshpande [Primary Care Provider] - (3-5 days) Forms: My[facility] Info Instructions
[2022-08-15 11:45] VITALS: BP 169/97; PULSE 119; RESP 22; TEMP 37.1; O2SAT 95
[2022-08-15 13:19] VITALS: BP 114/62; PULSE 110; RESP 18; TEMP 36.7
== END 2022-08-15 15:30 | disposition home or self-care (01) | DRG 871 ==
LOC: ED 18:13 → MEDSURG 19:16
PROVIDERS: Admitting Provider Family Medicine; Emergency Provider Family Medicine; PCP Internal Medicine; Visit Provider Family Medicine
DX: A41.9 Sepsis, unspecified organism (principal); J18.9 Pneumonia, unspecified organism; J96.01 Acute respiratory failure with hypoxia; R04.2 Hemoptysis; J44.9 Chronic obstructive pulmonary disease, unspecified; D50.9 Iron deficiency anemia, unspecified; R41.82 Altered mental status, unspecified; F17.200 Nicotine dependence, unspecified, uncomplicated; N63.10 Unspecified lump in the right breast, unspecified quadrant
CPT/HCPCS: 36415; 71045; 71260; 80048; 80053; 80306; 82803; 83605; 83880; 84145; 84443; 84484; 85025; 85045; 86140; 87040; 87502; 87634; 87635; 93005; 94640; 94761; 99285; A9270; J0696; J3370; J7030; J7120; J7512; Q9967

== ENCOUNTER 2022-10-29 19:25 | Emergency (ER) | payer MEDICAID, SELFPAY ==
[2022-10-29 19:34] VITALS: BP 179/93; PULSE 101; RESP 20; TEMP 36.6; O2SAT 98
[2022-10-29 19:55] VITALS: O2SAT 95
--- NOTE | 2022-10-29 19:55 | CRLHL7_ITS ---
For Patients: As a result of the Century Cures Act, medical imaging exams and procedure reports are released immediately into your electronic medical record. You may view this report before your referring provider. If you have questions, please contact your health care provider. Indication: Cough Technique: Chest 1 view Comparison: Chest x-ray 08/14/2022 Findings/Impression: Cardiovascular and mediastinum: Upper normal heart size. Moderate atherosclerotic calcification. Lungs and pleural space: No pleural effusion or pneumothorax. Some bronchial wall thickening with slight interstitial prominence in the perihilar regions which can be seen in a bronchitis/bronchiolitis. Bones and soft tissues: No acute findings. Dictated by Frankie Sandoval MD @ 10/30/2022 12:34:45 PM (Electronically Signed)
--- NOTE | 2022-10-29 19:58 | ED.GENADULT ---
HPI - General Adult General Chief complaint: Shortness of Breath/Dyspnea Stated complaint: Trouble Breathing Time Seen by Provider: 10/29/22 19:50 History of Present Illness HPI narrative: Patient is a 57 year white female smoker who has got COPD, congestive heart failure, history of pneumonia, presents with fatigue and cough increased production of her cough and a COPD exacerbation since this weekend. Patient had a call in to work today needs a note for work. She has had more production in her cough, as had shortness of breath only with exertion, noted real chest pain. She has feeling a little more short of breath when she does exert, she did use a neb today and that helped a little bit. She has had no fever of any marked degree she has had no leg swelling or edema. She has had no significant weight gain. No hemoptysis she continues to smoke. Related Data Home Medications Medication Instructions Recorded Confirmed benzonatate 100 mg capsule 100 mg PO Q6H PRN 02/12/22 02/12/22 cetirizine 10 mg tablet 10 mg PO DAILY 02/12/22 08/14/22 cholecalciferol (vitamin D3) 1,250 1,250 mcg PO QWEEK 02/12/22 02/12/22 mcg (50,000 unit) capsule famotidine 20 mg tablet 20 mg PO DAILY 02/12/22 08/14/22 ferrous gluconate 324 mg (38 mg 324 mg PO DAILY 02/12/22 02/12/22 iron) tablet fluticasone propionate 115 2 puff inhalation DAILY 02/12/22 08/14/22 mcg-salmeterol 21 mcg/actuation HFA inhaler (Advair HFA) lisinopril 5 mg tablet 5 mg PO DAILY 02/12/22 08/14/22 omeprazole 20 mg tablet,delayed 20 mg PO DAILY 02/12/22 02/12/22 release potassium chloride 20 mEq 20 meq PO BID 02/12/22 02/12/22 tablet,extended release(part/cryst) tiotropium bromide 18 mcg capsule 1 cap inhalation DAILY 02/12/22 02/12/22 with inhalation device (Spiriva with HandiHaler) venlafaxine 150 mg 150 mg PO DAILY 02/12/22 02/12/22 capsule,extended release 24 hr venlafaxine 75 mg capsule,extended 75 mg PO DAILY 02/12/22 02/12/22 release 24 hr fluconazole 150 mg tablet 150 mg PO .weekly 08/14/22 08/14/22 Previous Rx's Medication Instructions Recorded albuterol sulfate 90 mcg/actuation 2 puff inhalation Q4-6H PRN 08/15/22 aerosol inhaler (ProAir HFA) shortness of breath or wheezing #8.5 grams azithromycin 250 mg tablet 250 mg PO Q24H #6 tabs 08/15/22 cefdinir 300 mg capsule 300 mg PO BID #14 caps 08/15/22 prednisone 20 mg tablet 40 mg PO DAILYWM #4 tabs 08/15/22 doxycycline hyclate 100 mg capsule 100 mg PO BID #14 caps 10/29/22 prednisone 20 mg tablet 20 mg PO BID 5 days #10 tabs 10/29/22 Allergies Allergy/AdvReac Type Severity Reaction Status Date / Time No Known Drug Allergies Allergy Verified 08/14/22 15:08 Review of Systems Status of ROS: Reports: 6 or more systems reviewed and unremarkable except as noted in History and below [facility] Medical History Anxiety ?F41.9 - Anxiety disorder, unspecified (ICD-10) Cardiomegaly ?I51.7 - Cardiomegaly (ICD-10) CHF (congestive heart failure) ?I50.9 - Heart failure, unspecified (ICD-10) Chronic lower back pain ?M54.50 - Low back pain, unspecified (ICD-10) ?G89.29 - Other chronic pain (ICD-10) Chronic neck pain ?M54.2 - Cervicalgia (ICD-10) ?G89.29 - Other chronic pain (ICD-10) COPD (chronic obstructive pulmonary disease) ?J44.9 - Chronic obstructive pulmonary disease, unspecified (ICD-10) Depression ?F32.A - Depression, unspecified (ICD-10) GERD (gastroesophageal reflux disease) ?K21.9 - Gastro-esophageal reflux disease without esophagitis (ICD-10) H/O drug abuse ?F19.11 - Other psychoactive substance abuse, in remission (ICD-10) Hyperlipemia ?E78.5 - Hyperlipidemia, unspecified (ICD-10) Hypertension ?I10 - Essential (primary) hypertension (ICD-10) Hypokalemia ?E87.6 - Hypokalemia (ICD-10) Iron deficiency anemia ?D50.9 - Iron deficiency anemia, unspecified (ICD-10) Left breast mass ?N63.20 - Unspecified lump in the left breast, unspecified quadrant (ICD-10) Migraine ?G43.909 - Migraine, unspecified, not intractable, without status migrainosus (ICD-10) Personality disorder ?F60.9 - Personality disorder, unspecified (ICD-10) Sigmoid diverticulitis ?K57.32 - Diverticulitis of large intestine without perforation or abscess without bleeding (ICD-10) Tobacco use disorder ?F17.200 - Nicotine dependence, unspecified, uncomplicated (ICD-10) Vitamin A deficiency ?E50.9 - Vitamin A deficiency, unspecified (ICD-10) Surgical History History of breast biopsy ?Z98.890 - Other specified postprocedural states (ICD-10) History of section ?Z98.891 - History of uterine scar from previous surgery (ICD-10) History of colonoscopy ?Z98.890 - Other specified postprocedural states (ICD-10) No significant past surgical history Family History Father Heart disease FH: mental illness Mother High blood pressure Sister FH: mental illness Social History Narrative: She lives in [place] with her boyfriend Jordan who she designates healthcare power of 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 Her code status is full. 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 She has 2 sons, 1 living at home. She does smoke cigarettes. She does not drink alcohol Highest level of school completed/degree received: high school graduate Smoking Status: Current every day smoker What tobacco products do you use: cigarettes Smoking packs per day: 1 Smoking cigarettes per day: 20.0 How often do you have a drink containing alcohol: never AUDIT-C Alcohol total score: 0 Non-prescribed substance use: denies use Caffeine: Yes service: No Exam Narrative: Exam Narrative: Objective: Vital signs show slightly elevated blood pressure O2 sat excellent at 98% HEENT is unremarkable no facial asymmetry mouth clear neck supple chest is diminished air exchange bilaterally but she has adequate air exchange heart rhythm regular without murmur abdomen benign soft extremities are no edema neurologic nonfocal patient is ambulatory without difficulty vital signs show no hypoxia as mention, no cyanosis noted Const: Vital Signs, click to edit/add: Vital Signs - 24 hr 10/29/22 19:34 10/29/22 19:55 10/29/22 21:20 Temperature 97.9 F Pulse Rate [Right Pulse Oximeter] 101 H 98 Respiratory Rate 20 20 Blood Pressure [Ri ght Upper Arm] 179/93 H Pulse Oximetry 98 95 Oxygen Delivery Me thod Room Air Course Vital Signs Vital signs: Initial Vital Signs Temperature 97.9 F 10/29/22 19:34 Temperature Source Temporal Artery Scan 10/29/22 19:34 Pulse Rate 101 H 10/29/22 19:34 Pulse Rhythm Regular 10/29/22 19:34 Respiratory Rate 20 10/29/22 19:34 Blood Pressure 179/93 H 10/29/22 19:34 Blood Pressure Mean 121 H 10/29/22 19:34 Blood Pressure Position Sitting 10/29/22 19:34 Pulse Oximetry 98 10/29/22 19:34 Oxygen Delivery Method Room Air 10/29/22 19:34 Vital Signs Temperature 97.9 F 10/29/22 19:34 Pulse Rate 101 H 10/29/22 19:34 Respiratory Rate 20 10/29/22 19:34 Blood Pressure 179/93 H 10/29/22 19:34 Pulse Oximetry 98 10/29/22 19:34 Oxygen Delivery Method Room Air 10/29/22 19:34 Temperature 97.9 F 10/29/22 19:34 Pulse Rate 98 10/29/22 21:20 Respiratory Rate 20 10/29/22 21:20 Blood Pressure 179/93 H 10/29/22 19:34 Pulse Oximetry 95 10/29/22 19:55 Oxygen Delivery Method Room Air 10/29/22 19:34 Medical Decision Making MDM Narrative Medical decision making narrative: Patient is a 57-year-old female with history of COPD, congestive heart failure, anxiety, who presents with increased production in of cough and sputum, no significant chest pain or other concern. No swelling of the legs. Patient needs a note for work by her request. She has gotten steroids and antibiotics in the past that have helped her. She does have a nebulizer at home. At this point I think could be appropriate to get an EKG, point of care troponin, laboratory studies, portable chest x-ray, IV Solu-Medrol 125 aspirin 324 chewable, and 500 mL normal saline. Will also give her a DuoNeb. Disposition for home would be prednisone 20 b.i.d. x5 days doxycycline 100 mg b.i.d. x7 days. Recommend she stop smoking, return if problems or concerns, review the lab studies as they return thanks Addendum 9:11 p.m.: Patient's EKG shows normal sinus rhythm some mild artifact no specific ST-T changes. Her chest x-ray shows chronic interstitial fibrotic type changes in this looks unchanged from prior. She feels markedly better after her nebulizer and steroid medication and fluid. I think she should be off work for few days no written to that effect. Doxycycline and prednisone at home to start tomorrow. Continue her nebs as needed. Return if problems or concerns otherwise follow up with the regular doctor the next 2-3 days. Lab Data Labs: Lab Results 10/29/22 10/29/22 Range/Units 20:15 20:21 WBC 7.15 (4.50-11.00) K/uL RBC 3.60 L (4.00-5.20) m/uL Hgb 8.9 L (12.0-16.0) gm/dL Hct 32.3 L (33.0-51.0) % MCV 90 (80-100) fL MCH 25 L (26-34) pg MCHC 28 L (32-36) gm/dL RDW Coeff of Dolores 17.2 H (11.5-15.5) % Plt Count 308 (140-440) K/uL Neut % (Auto) 50.9 (42.0-72.0) % Lymph % (Auto) 33.8 (20-44) % Rhea % (Auto) 10.3 (0.0-11.0) % Eos % (Auto) 4.3 (0.0-7.0) % Baso % (Auto) 0.4 (0.0-3.0) % Neut # (Auto) 3.63 (1.7-7.0) K/uL Lymph # (Auto) 2.42 (0.90-2.90) K/uL Rhea # (Auto) 0.70 (0.00-0.90) K/UL Eos # (Auto) 0.31 (0.00-0.50) K/uL Baso # (Auto) 0.03 (0.00-0.30) K/uL Sodium 140 (135-149) mmol/L Potassium 3.6 (3.6-5.1) mmol/L Chloride 109 (96-114) mmol/L Carbon Dioxide 26 (20-32) mmol/L BUN 12 (7-30) mg/dL Creatinine 0.5 (0.5-1.5) mg/dL Estimated GFR 109 ml/min Glucose 182 H (60-115) mg/dL Calcium 8.4 (8.4-10.6) mg/dL C-Reactive Protein 3.3 H (0.5-1.0) mg/dL NT-Pro-B Natriuret Pep 831 pg/mL Discharge Plan Discharge Clinical Impression: COPD (chronic obstructive pulmonary disease) Patient Disposition: Home, Self-Care Condition: Stable Additional Instructions: Light activity, off work for 3 days, doxycycline 100 mg b.i.d. x7 days, some prednisone 20 mg b.i.d. x5 days start tomorrow. Continue the nebulizers in her home medications. Follow up with primary care in the next 2-3 days, return to ED sooner problems concerns difficulty. Activity Level: Light activity Discharge Diet: Regular Prescriptions: New doxycycline hyclate 100 mg capsule 100 mg PO BID Qty: 14 0RF prednisone 20 mg tablet 20 mg PO BID 5 Days Qty: 10 0RF No Action omeprazole 20 mg tablet,delayed release (DR/EC) 20 mg PO DAILY potassium chloride 20 mEq tablet,ER particles/crystals 20 meq PO BID lisinopril 5 mg tablet 5 mg PO DAILY venlafaxine 150 mg capsule,extended release 24hr 150 mg PO DAILY Patient Comments: TAKE ONE CAPSULE BY MOUTH ONCE DAILY WITH A MEAL. TAKE WITH 75 MG CAPSULE FOR A TOTAL DAILY DOSE OF 225 MG. venlafaxine 75 mg capsule,extended release 24hr 75 mg PO DAILY Spiriva with HandiHaler 18 mcg capsule, w/inhalation device 1 cap INHALATION DAILY Advair HFA 115-21 mcg/actuation HFA aerosol inhaler 2 puff INHALATION DAILY Patient Comments: INHALE 2 PUFFS BY MOUTH TWICE DAILY benzonatate 100 mg capsule 100 mg PO Q6H PRN Patient Comments: TAKE 1 CAPSULE BY MOUTH THREE TIMES DAILY IF NEEDED FOR COUGH cetirizine 10 mg tablet 10 mg PO DAILY ferrous gluconate 324 mg (38 mg iron) tablet 324 mg PO DAILY Patient Comments: TAKE 1 TABLET BY MOUTH ONCE A DAY WITH A MEAL famotidine 20 mg tablet 20 mg PO DAILY cholecalciferol (vitamin D3) 1,250 mcg (50,000 unit) capsule 1,250 mcg PO QWEEK Patient Comments: TAKE 1 CAPSULE BY MOUTH ONCE WEEKLY fluconazole 150 mg tablet 150 mg PO .weekly Patient Comments: TAKE 1 TABLET BY MOUTH 1 TIME A WEEK FOR 3 WEEKS albuterol sulfate [ProAir HFA] 90 mcg/actuation HFA aerosol inhaler 2 puff inhalation Q4-6H PRN (Reason: shortness of breath or wheezing) Qty: 8.5 0RF azithromycin 250 mg Tablet 250 mg PO Q24H Qty: 6 0RF cefdinir 300 mg capsule 300 mg PO BID Qty: 14 0RF prednisone 20 mg Tablet 40 mg PO DAILYWM Qty: 4 0RF Rx Instructions: Take 40 mg daily tomorrow and next day, then resume taper of prednisone previously prescribed. Follow Up/Referrals: Carola Deshpande [Referring] - Stand Alone Forms: [employer] Info Instructions
[2022-10-29] MEDS: 0.9 % SODIUM CHLORIDE 500 ML 500 ML IV (20:29)
[2022-10-29] MEDS: METHYLPREDNISOLONE SOD SUCC 62.5 MG/ML (125) 125 MG IVP (20:29)
[2022-10-29] MEDS: ASPIRIN 81 MG TAB.CHEW 324 MG PO (20:29)
[2022-10-29 20:31] LABS: Basophils Absolute Auto 0.03 K/uL (0.00-0.30); Basophils Percent Auto 0.4 % (0.0-3.0); Eosinophils Absolute Auto 0.31 K/uL (0.00-0.50); Eosinophils Percent Auto 4.3 % (0.0-7.0); Hematocrit 32.3 % (33.0-51.0); Hemoglobin* 8.9 gm/dL (12.0-16.0); Immature Granulocytes Abs Auto 0.02 K/uL (0.00-0.30); Immature Granulocytes Pct Auto 0.3 %; Lymphocytes Absolute Auto 2.42 K/uL (0.90-2.90); Lymphocytes Percent Auto 33.8 % (20-44); Mean Corpuscular HGB Conc 28 gm/dL (32-36); Mean Corpuscular Hemoglobin 25 pg (26-34); Mean Corpuscular Volume 90 fL (80-100); Monocytes Percent Auto 10.3 % (0.0-11.0); Neutrophils Absolute Auto 3.63 K/uL (1.7-7.0); Neutrophils Percent Auto 50.9 % (42.0-72.0); Platelet Count* 308 K/uL (140-440); RDW Coefficient of Variation % 17.2 % (11.5-15.5); White Blood Count* 7.15 K/uL (4.50-11.00)
[2022-10-29] MEDS: IPRAT-ALBUT 0.5-2.5 MG/3 ML NEB 1 NEB IH (20:32)
[2022-10-29 20:44] LABS: Slide Review Reflex No
[2022-10-29 20:45] LABS: Chloride* 109 mmol/L (96-114); Potassium* 3.6 mmol/L (3.6-5.1); Sodium* 140 mmol/L (135-149)
[2022-10-29 20:47] LABS: Creatinine* 0.5 mg/dL (0.5-1.5); Estimated Glomerular Filt Rate 109 ml/min
[2022-10-29 20:48] LABS: Blood Urea Nitrogen* 12 mg/dL (7-30); Calcium* 8.4 mg/dL (8.4-10.6); Carbon Dioxide* 26 mmol/L (20-32); Glucose* 182 mg/dL (60-115)
[2022-10-29 20:51] LABS: C Reactive Protein* 3.3 mg/dL (0.5-1.0)
[2022-10-29] MEDS: DOXYCYCLINE HYCLATE 100 MG CAPSULE PO (20:51)
[2022-10-29 21:02] LABS: NT Pro B Type NatriureticPept* 831 pg/mL
[2022-10-29 21:20] VITALS: PULSE 98; RESP 20
[2022-11-29 14:01] LABS: Troponin, Point-of-Care* 0.02 ng/ml (0.01-0.04)
== END 2022-10-29 21:32 | disposition home or self-care (01) ==
LOC: ED 20:04
PROVIDERS: Emergency Provider Family Medicine; PCP Physician Assistant
DX: J44.9 Chronic obstructive pulmonary disease, unspecified (principal)
CPT/HCPCS: 36415; 71045; 80048; 83880; 84484; 85025; 86140; 87631; 93005; 94640; 94761; 96374; 99284; 99285; A9270; J2930; J7120

== ENCOUNTER 2022-11-21 04:38 | Emergency (ER) | payer MEDICAID, SELFPAY ==
[2022-11-21 04:46] VITALS: BP 183/85; PULSE 99; RESP 18; TEMP 36.6; O2SAT 99
--- NOTE | 2022-11-21 05:11 | CRLHL7_ITS ---
For Patients: As a result of the Century Cures Act, medical imaging exams and procedure reports are released immediately into your electronic medical record. You may view this report before your referring provider. If you have questions, please contact your health care provider. INDICATION: abdominal pain TECHNIQUE: CT abdomen and pelvis with 83 cc Isovue 370 IV contrast. COMPARISON: CT abdomen pelvis February 12, 2022 FINDINGS: The liver is normal in size, shape and attenuation. Gallbladder and biliary tree are normal. The spleen and pancreas are within normal limits. Incompletely characterized stable right adrenal nodule, measuring 2.4 x 1.5 cm. The kidneys are unremarkable. No hydronephrosis. Decompressed bladder. No evidence of bowel obstruction or inflammation. Colonic diverticulosis without evidence of acute diverticulitis. Moderate fecal retention throughout the colon predominantly the right colon. Unremarkable appearing appendix. No significant free fluid and no free air. Abdominal aorta is of normal caliber with moderate to severe atherosclerosis. Pelvic organs are unremarkable. The lower chest is unremarkable. Mild multilevel degenerative spondylosis without acute fracture or aggressive osseous lesion. IMPRESSION: No evidence of acute intra-abdominal/pelvic process. Incompletely characterized stable right adrenal nodule, measuring 2.4 x 1.[address] adrenal protocol to further evaluate. Colonic diverticulosis without evidence of acute diverticulitis. Please note that all CT scans at this facility use dose modulation, iterative reconstruction, and/or weight-based dosing when appropriate to reduce radiation dose to as low as reasonably achievable. Dictated by Charlie Guido MD @ 11/21/2022 7:20:55 AM (Electronically Signed)
--- NOTE | 2022-11-21 05:21 | ED.GENADULT ---
HPI - General Adult General Chief complaint: Abdominal Pain Stated complaint: abdominal pain Time Seen by Provider: 11/21/22 04:57 History of Present Illness HPI narrative: 37-year-old female reports diffuse abdominal pain for the past 3 days after eating ?rich food on Sunday. She reports that she forgot to take her GI medications which are famotidine and Pepto-Bismol on Sunday and thinks that that is the reason for her symptoms. No prior history of bowel obstruction. I reviewed the records and see that she has had a diagnosis of diverticulitis in the past. She denies any fever. Vomiting started today. It is non bloody. She reports chronic constipation, no blood in her stools. She has restarted taking her famotidine and stool softener which are her typical GI medications and reports that they are not helping. She points to the lower abdomen is the source of the pain but then also to the epigastrium. She says that it does not localize. Denies any improvement with food, rest or any other interventions. She has not tried any Tylenol or ibuprofen. Denies alcohol use but she is a smoker. No recent colonoscopy or endoscopy. Denies any recent trauma or injury. Past medical history notable for depression, she reports congestive heart failure but she does not take any diuretics per her report. Home meds are stool softener, famotidine, venlafaxine, Zyrtec, aspirin and lisinopril. Surgically she has had 1 prior . No known drug allergies. No alcohol in the last few days, is working on cutting down on smoking but is still smoking. ROS is notable for the GI symptoms only, denies gynecological, urinary or any other symptoms times 12 systems. Related Data Home Medications Medication Instructions Recorded Confirmed benzonatate 100 mg capsule 100 mg PO Q6H PRN 02/12/22 02/12/22 cetirizine 10 mg tablet 10 mg PO DAILY 02/12/22 08/14/22 cholecalciferol (vitamin D3) 1,250 1,250 mcg PO QWEEK 02/12/22 02/12/22 mcg (50,000 unit) capsule famotidine 20 mg tablet 20 mg PO DAILY 02/12/22 08/14/22 ferrous gluconate 324 mg (38 mg 324 mg PO DAILY 02/12/22 02/12/22 iron) tablet fluticasone propionate 115 2 puff inhalation DAILY 02/12/22 08/14/22 mcg-salmeterol 21 mcg/actuation HFA inhaler (Advair HFA) lisinopril 5 mg tablet 5 mg PO DAILY 02/12/22 08/14/22 omeprazole 20 mg tablet,delayed 20 mg PO DAILY 02/12/22 02/12/22 release potassium chloride 20 mEq 20 meq PO BID 02/12/22 02/12/22 tablet,extended release(part/cryst) tiotropium bromide 18 mcg capsule 1 cap inhalation DAILY 02/12/22 02/12/22 with inhalation device (Spiriva with HandiHaler) venlafaxine 150 mg 150 mg PO DAILY 02/12/22 02/12/22 capsule,extended release 24 hr venlafaxine 75 mg capsule,extended 75 mg PO DAILY 02/12/22 02/12/22 release 24 hr fluconazole 150 mg tablet 150 mg PO .weekly 08/14/22 08/14/22 Previous Rx's Medication Instructions Recorded albuterol sulfate 90 mcg/actuation 2 puff inhalation Q4-6H PRN 08/15/22 aerosol inhaler (ProAir HFA) shortness of breath or wheezing #8.5 grams azithromycin 250 mg tablet 250 mg PO Q24H #6 tabs 08/15/22 cefdinir 300 mg capsule 300 mg PO BID #14 caps 08/15/22 prednisone 20 mg tablet 40 mg (2 x 20 mg) PO DAILYWM #4 08/15/22 tabs doxycycline hyclate 100 mg capsule 100 mg PO BID #14 caps 10/29/22 prednisone 20 mg tablet 20 mg PO BID 5 days #10 tabs 10/29/22 ondansetron 4 mg disintegrating 4 mg PO Q8H PRN nausea and 11/21/22 tablet vomiting #10 tabs Allergies Allergy/AdvReac Type Severity Reaction Status Date / Time No Known Drug Allergies Allergy Verified 11/21/22 06:03 [facility] Medical History Sigmoid diverticulitis ?K57.32 - Diverticulitis of large intestine without perforation or abscess without bleeding (ICD-10) Left breast mass ?N63.20 - Unspecified lump in the left breast, unspecified quadrant (ICD-10) Iron deficiency anemia ?D50.9 - Iron deficiency anemia, unspecified (ICD-10) Tobacco use disorder ?F17.200 - Nicotine dependence, unspecified, uncomplicated (ICD-10) Anxiety ?F41.9 - Anxiety disorder, unspecified (ICD-10) Cardiomegaly ?I51.7 - Cardiomegaly (ICD-10) Migraine ?G43.909 - Migraine, unspecified, not intractable, without status migrainosus (ICD-10) GERD (gastroesophageal reflux disease) ?K21.9 - Gastro-esophageal reflux disease without esophagitis (ICD-10) Hypertension ?I10 - Essential (primary) hypertension (ICD-10) Vitamin A deficiency ?E50.9 - Vitamin A deficiency, unspecified (ICD-10) H/O drug abuse ?F19.11 - Other psychoactive substance abuse, in remission (ICD-10) CHF (congestive heart failure) ?I50.9 - Heart failure, unspecified (ICD-10) Personality disorder ?F60.9 - Personality disorder, unspecified (ICD-10) Depression ?F32.A - Depression, unspecified (ICD-10) COPD (chronic obstructive pulmonary disease) ?J44.9 - Chronic obstructive pulmonary disease, unspecified (ICD-10) Chronic neck pain ?M54.2 - Cervicalgia (ICD-10) ?G89.29 - Other chronic pain (ICD-10) Chronic lower back pain ?M54.50 - Low back pain, unspecified (ICD-10) ?G89.29 - Other chronic pain (ICD-10) Hypokalemia ?E87.6 - Hypokalemia (ICD-10) Hyperlipemia ?E78.5 - Hyperlipidemia, unspecified (ICD-10) Surgical History History of colonoscopy ?Z98.890 - Other specified postprocedural states (ICD-10) History of section ?Z98.891 - History of uterine scar from previous surgery (ICD-10) History of breast biopsy ?Z98.890 - Other specified postprocedural states (ICD-10) No significant past surgical history Family History Father Heart disease FH: mental illness Mother High blood pressure Sister FH: mental illness Social History Narrative: She lives in [place] with her boyfriend Jordan who she designates healthcare 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 Her code status is full. 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 She has 2 sons, 1 living at home. She does smoke cigarettes. She does not drink alcohol Highest level of school completed/degree received: high school graduate Smoking Status: Current every day smoker What tobacco products do you use: cigarettes Smoking packs per day: 1 Smoking cigarettes per day: 20.0 How often do you have a drink containing alcohol: never AUDIT-C Alcohol total score: 0 Non-prescribed substance use: denies use Caffeine: Yes service: No Exam Const: Vital Signs, click to edit/add: Vital Signs - 24 hr 11/21/22 04:46 11/21/22 06:10 11/21/22 06:12 Temperature 98 F Pulse Rate 110 H Pulse Rate [Pulse Oximeter] 99 Respiratory Rate 18 Blood Pressure 167/82 H Blood Pressure [Ri ght Upper Arm] 183/85 H Pulse Oximetry 99 92 Oxygen Delivery Me thod Room Air 11/21/22 06:17 11/21/22 06:30 Temperature Pulse Rate 106 H 108 H Pulse Rate [Pulse Oximeter] Respiratory Rate 20 Blood Pressure 167/82 H Blood Pressure [Ri ght Upper Arm] Pulse Oximetry 91 91 Oxygen Delivery Me thod Documenting provider has reviewed patient's vital signs: yes Other: She is a little guarded with questions but does not appear to be in any true acute distress. Appears well nourished and well hydrated. HENMT: Common normals: normocephalic Head and scalp: normocephalic Face and sinus: normal facial exam Mouth: oral and palatal mucosa normal Throat: posterior oropharynx normal Eye: Common normals: conjunctivae normal General eye: normal appearance of both eyes Conjunctiva: conjunctiva(e) normal Neck & C-Spine: Common normals: full ROM and no lymphadenopathy Resp: Common normals: normal respiratory effort, no use of accessory muscles and clear to auscultation bilaterally Effort & inspection: able to speak in complete sentences Auscultation: clear to auscultation bilaterally Cardio: Common normals: regular rate, regular rhythm, S1 normal heart sound, S2 normal heart sound and no murmurs Rate: regular rate Rhythm: regular rhythm Heart sounds: S1 normal and S2 normal GI: Other: Abdomen obese, does not appear distended. I do not know her baseline. Bowel sounds seem a little hypoactive throughout but no obvious hyperactive sounds. There are no masses, no hepatosplenomegaly. She is diffusely tender but it does not localize. : Common normals: no CVA tenderness Bladder/kidney exam: no CVA tenderness Back & Pelvis: Common normals: no CVA tenderness Extremity: Common normals: normal capillary refill and no pedal edema Neuro: Motor exam: no tremor noted and no movement abnormalities noted Psych: Insight: fair Judgement: fair Other: Avoids eye contact, speech is normal. A little guarded. Skin: Common normals: no rashes or lesions noted General skin exam: no rashes or lesions noted Course Vital Signs Vital signs: Initial Vital Signs Temperature 98 F 11/21/22 04:46 Temperature Source Temporal Artery Scan 11/21/22 04:46 Pulse Rate 99 11/21/22 04:46 Respiratory Rate 18 11/21/22 04:46 Blood Pressure 183/85 H 11/21/22 04:46 Blood Pressure Mean 117 H 11/21/22 04:46 Blood Pressure Position Supine 11/21/22 04:46 Pulse Oximetry 99 11/21/22 04:46 Oxygen Delivery Method Room Air 11/21/22 04:46 Vital Signs Temperature 98 F 11/21/22 04:46 Pulse Rate 99 11/21/22 04:46 Respiratory Rate 18 11/21/22 04:46 Blood Pressure 183/85 H 11/21/22 04:46 Pulse Oximetry 99 11/21/22 04:46 Oxygen Delivery Method Room Air 11/21/22 04:46 Temperature 98 F 11/21/22 04:46 Pulse Rate 108 H 11/21/22 06:30 Respiratory Rate 20 11/21/22 06:30 Blood Pressure 167/82 H 11/21/22 06:30 Pulse Oximetry 91 11/21/22 06:30 Oxygen Delivery Method Room Air 11/21/22 04:46 Medical Decision Making MDM Narrative Medical decision making narrative: Differential diagnosis including gastroenteritis, small-bowel obstruction, diverticulitis, pancreatitis, gastritis, mesenteric ischemia, appendicitis. No bleeding is reassuring. Recommend CT scan of the abdomen and pelvis, Zofran, fluids. Has been given Toradol by EMS. Did seem to improve her pain. Await labs and studies. Have had significant difficulty getting an IV, I have encouraged the nursing team to continue trying. Update: Patient reports marked improvement in her symptoms after Zofran. Labs are reviewed. Positive for methamphetamines which would certainly explain the mild tachycardia. With her heart history she really should not be using methamphetamines. Normal CT scan reviewed. All findings discussed with patient who continues to feel better. Discussed plan of care. Conservative management, push fluids, Tylenol and ibuprofen as needed. Prescription for a few Zofran given. Suspect gastroenteritis. Symptoms should resolve in 48 hours. Follow up with primary care as needed. Lab Data Lab results reviewed: Yes I reviewed the patient's lab results Lab results narrative: Labs are overall reassuring. Drug screen is positive for methamphetamines which would certainly explain her tachycardia. She is up and ambulating after the Zofran, says that she feels much better. Remainder of the labs are overall quite reassuring. Labs: Lab Results 11/21/22 11/21/22 Range/Units 05:35 06:11 WBC 8.49 (4.50-11.00) K/uL RBC 4.10 (4.00-5.20) m/uL Hgb 9.6 L (12.0-16.0) gm/dL Hct 34.8 (33.0-51.0) % MCV 85 (80-100) fL MCH 23 L (26-34) pg MCHC 28 L (32-36) gm/dL RDW Coeff of Dolores 16.9 H (11.5-15.5) % Plt Count 345 (140-440) K/uL Neut % (Auto) 75.3 H (42.0-72.0) % Lymph % (Auto) 13.7 L (20-44) % [place] % (Auto) 8.2 (0.0-11.0) % Eos % (Auto) 1.6 (0.0-7.0) % Baso % (Auto) 0.0 (0.0-3.0) % Neut # (Auto) 6.40 (1.7-7.0) K/uL Lymph # (Auto) 1.20 (0.90-2.90) K/uL [place] # (Auto) 0.70 (0.00-0.90) K/UL Eos # (Auto) 0.14 (0.00-0.50) K/uL Baso # (Auto) 0.00 (0.00-0.30) K/uL Sodium 139 (135-149) mmol/L Potassium 3.9 (3.6-5.1) mmol/L Chloride 101 (96-114) mmol/L Carbon Dioxide 30 (20-32) mmol/L BUN 11 (7-30) mg/dL Creatinine 0.6 (0.5-1.5) mg/dL Estimated GFR 105 ml/min Glucose 160 H (60-115) mg/dL Lactate 1.1 (0.5-1.9) mmol/L Calcium 8.4 (8.4-10.6) mg/dL Total Bilirubin 0.3 (0.1-1.5) mg/dL AST 22 (12-35) U/L ALT 32 (4-35) U/L Alkaline Phosphatase 93 (40-150) U/L C-Reactive Protein 1.4 H (0.5-1.0) mg/dL Total Protein 6.8 (6.0-8.3) g/dL Albumin 3.9 (3.3-5.0) g/dL Lipase 23 (23-300) U/L Urine Color Yellow (Yellow) Urine Appearance Clear (Clear) Urine pH 6.5 (5.0-8.5) Ur Specific [place] <= 1.005 (1.000-1.030) Urine Protein Negative (Negative) Urine Glucose (UA) Negative (Negative) Urine Ketones Negative (Negative) Urine Blood Negative (Negative) Urine Nitrite Negative (Negative) Urine Bilirubin Negative (Negative) Urine Urobilinogen 0.2 (0.2-1.0) Ur Leukocyte Esterase Negative (Negative) Urine Opiates Screen Negative (Negative) Ur Oxycodone Screen Negative (Negative) Urine Methadone Screen Negative (Negative) Ur Propoxyphene Screen Negative (Negative) Ur Barbiturates Screen Negative (Negative) U Tricyclic Antidepress Negative (Negative) Ur Phencyclidine Scrn Negative (Negative) Ur Amphetamines Screen POSITIVE A* (Negative) U Methamphetamines Scrn POSITIVE A* (Negative) U Benzodiazepines Scrn Negative (Negative) Urine Cocaine Screen Negative (Negative) U Marijuana (THC) Screen Negative (Negative) Ur Drug Screen Comment See Note Imaging Data CT scan - pelvis: Attestation: I have reviewed the pertinent imaging results. My impression: Mild constipation, otherwise normal Radiologist's impression: IMPRESSION: No evidence of acute intra-abdominal/pelvic process. Incompletely characterized stable right adrenal nodule, measuring 2.4 x 1.[address] adrenal protocol to further evaluate. Colonic diverticulosis without evidence of acute diverticulitis. ECG Data Attestation: I personally reviewed and interpreted this ECG as follows: Prior ECG tracings: not available for review Interpretation: Normal sinus rhythm, rate is 100. No significant ST or T-wave abnormalities. Borderline QT interval. Normal axis. Borderline criteria for LVH Discharge Plan Discharge Clinical Impression: Gastroenteritis Patient Disposition: Home w/ Parent or Adult Condition: Improved Instructions: Gastroenteritis (DC) Additional Instructions: As we discussed, there are no signs of any dangerous pathology. No pancreatitis, diverticulitis, etc.. This is great news. As we discussed, your urine screen is positive for methamphetamines. This does not have anything to do with your pain today but is not a good idea for you to continue using because of your heart history. I am glad that the Zofran, the anti nausea medicine was helpful for you. I would like for you to continue using this as needed. Your symptoms are due to a ?stomach flu?. These tend to last 3-4 days. You may continue using the nausea medicine to help prevent vomiting. Keep pushing fluids. Eat soft, bland foods in small amounts for the next few days until you are feeling better. You should be using Tylenol and/or ibuprofen for stomach ache and cramping. Keep taking your stool softener and famotidine daily. Come back to the emergency department if you have bloody vomit, lots of blood in your stools or symptoms of dehydration. You may resume all typical activities. Activity Level: No Restrictions Discharge Diet: Regular Prescriptions: New ondansetron 4 mg tablet,disintegrating 4 mg PO Q8H PRN (Reason: nausea and vomiting) Qty: 10 0RF No Action doxycycline hyclate 100 mg capsule 100 mg PO BID Qty: 14 0RF prednisone 20 mg tablet 20 mg PO BID 5 Days Qty: 10 0RF omeprazole 20 mg tablet,delayed release (DR/EC) 20 mg PO DAILY potassium chloride 20 mEq tablet,ER particles/crystals 20 meq PO BID lisinopril 5 mg tablet 5 mg PO DAILY venlafaxine 150 mg capsule,extended release 24hr 150 mg PO DAILY Patient Comments: TAKE ONE CAPSULE BY MOUTH ONCE DAILY WITH A MEAL. TAKE WITH 75 MG CAPSULE FOR A TOTAL DAILY DOSE OF 225 MG. venlafaxine 75 mg capsule,extended release 24hr 75 mg PO DAILY Spiriva with HandiHaler 18 mcg capsule, w/inhalation device 1 cap INHALATION DAILY Advair HFA 115-21 mcg/actuation HFA aerosol inhaler 2 puff INHALATION DAILY Patient Comments: INHALE 2 PUFFS BY MOUTH TWICE DAILY benzonatate 100 mg capsule 100 mg PO Q6H PRN Patient Comments: TAKE 1 CAPSULE BY MOUTH THREE TIMES DAILY IF NEEDED FOR COUGH cetirizine 10 mg tablet 10 mg PO DAILY ferrous gluconate 324 mg (38 mg iron) tablet 324 mg PO DAILY Patient Comments: TAKE 1 TABLET BY MOUTH ONCE A DAY WITH A MEAL famotidine 20 mg tablet 20 mg PO DAILY cholecalciferol (vitamin D3) 1,250 mcg (50,000 unit) capsule 1,250 mcg PO QWEEK Patient Comments: TAKE 1 CAPSULE BY MOUTH ONCE WEEKLY fluconazole 150 mg tablet 150 mg PO .weekly Patient Comments: TAKE 1 TABLET BY MOUTH 1 TIME A WEEK FOR 3 WEEKS albuterol sulfate [ProAir HFA] 90 mcg/actuation HFA aerosol inhaler 2 puff inhalation Q4-6H PRN (Reason: shortness of breath or wheezing) Qty: 8.5 0RF azithromycin 250 mg Tablet 250 mg PO Q24H Qty: 6 0RF cefdinir 300 mg capsule 300 mg PO BID Qty: 14 0RF prednisone 20 mg Tablet 40 mg PO DAILYWM Qty: 4 0RF Rx Instructions: Take 40 mg daily tomorrow and next day, then resume taper of prednisone previously prescribed. Follow Up/Referrals: Tequila Whyte PA-C [Primary Care Provider] - Stand Alone Forms: [facility] Info Instructions
[2022-11-21] MEDS: ONDANSETRON 2 MG/ML inj 4 MG IVP (05:33)
[2022-11-21] MEDS: LACTATED RINGERS 1000 ML 1,000 ML IV (05:33)
[2022-11-21 05:39] LABS: Lactate* 1.1 mmol/L (0.5-1.9)
[2022-11-21 05:57] LABS: Albumin* 3.9 g/dL (3.3-5.0); Chloride* 101 mmol/L (96-114); Sodium* 139 mmol/L (135-149)
[2022-11-21 05:58] LABS: Potassium* 3.9 mmol/L (3.6-5.1)
[2022-11-21 06:00] LABS: Creatinine* 0.6 mg/dL (0.5-1.5); Estimated Glomerular Filt Rate 105 ml/min
[2022-11-21 06:01] LABS: Alanine Aminotransferase* 32 U/L (4-35); Alkaline Phosphatase* 93 U/L (40-150); Aspartate Amino Transferase* 22 U/L (12-35); Bilirubin Total* 0.3 mg/dL (0.1-1.5); Blood Urea Nitrogen* 11 mg/dL (7-30); Calcium* 8.4 mg/dL (8.4-10.6); Carbon Dioxide* 30 mmol/L (20-32); Glucose* 160 mg/dL (60-115); Lipase* 23 U/L (23-300); Total Protein* 6.8 g/dL (6.0-8.3)
[2022-11-21 06:05] LABS: C Reactive Protein* 1.4 mg/dL (0.5-1.0)
[2022-11-21 06:10] VITALS: PULSE 110; O2SAT 92
[2022-11-21 06:12] VITALS: BP 167/82
[2022-11-21 06:16] LABS: Eosinophils Absolute Auto 0.14 K/uL (0.00-0.50); Eosinophils Percent Auto 1.6 % (0.0-7.0); Hematocrit 34.8 % (33.0-51.0); Hemoglobin* 9.6 gm/dL (12.0-16.0); Immature Granulocytes Pct Auto 1.2 %; Lymphocytes Percent Auto 13.7 % (20-44); Mean Corpuscular HGB Conc 28 gm/dL (32-36); Mean Corpuscular Hemoglobin 23 pg (26-34); Mean Corpuscular Volume 85 fL (80-100); Monocytes Percent Auto 8.2 % (0.0-11.0); Neutrophils Percent Auto 75.3 % (42.0-72.0); Platelet Count* 345 K/uL (140-440); RDW Coefficient of Variation % 16.9 % (11.5-15.5); White Blood Count* 8.49 K/uL (4.50-11.00)
[2022-11-21 06:17] VITALS: PULSE 106; O2SAT 91
[2022-11-21 06:18] LABS: Appearance Urine Clear (Clear); Bilirubin Urine Negative (Negative); Blood Urine Negative (Negative); Color Urine Yellow (Yellow); Glucose Urine Negative (Negative); Ketones Urine Negative (Negative); Leukocyte Esterase Urine Negative (Negative); Nitrite Urine Negative (Negative); Protein Urine Negative (Negative); Specific Gravity Urine <= 1.005 (1.000-1.030); Urobilinogen Urine 0.2 (0.2-1.0); pH Urine 6.5 (5.0-8.5)
[2022-11-21 06:18] LABS: Slide Review Reflex No
[2022-11-21 06:25] LABS: Barbiturate Screen Urine Negative (Negative); Benzodiazepines Screen Urine Negative (Negative); Cannabinoid Screen Urine Negative (Negative); Cocaine Screen Urine Negative (Negative); Methadone Screen Urine Negative (Negative); Opiate Screen Urine Negative (Negative); Oxycodone Screen Urine Negative (Negative); Phencyclidine Screen Urine Negative (Negative); Tricyclic Antidepressant Urine Negative (Negative)
[2022-11-21 06:30] VITALS: BP 167/82; PULSE 108; RESP 20; O2SAT 91
[2022-11-21 06:30] LABS: Methamphetamines Screen Urine POSITIVE (Negative)
[2022-11-21 06:31] LABS: Amphetamine Screen Urine POSITIVE (Negative)
[2022-11-21 07:38] VITALS: BP 160/89; PULSE 102; RESP 16; TEMP 36.3; O2SAT 94
[2022-11-21] MEDS: OMEPRAZOLE 20 MG CAPSULE DR PO (07:38)
== END 2022-11-21 07:51 | disposition home or self-care (01) ==
PROVIDERS: Emergency Provider Family Medicine; PCP Physician Assistant
DX: K52.9 Noninfective gastroenteritis and colitis, unspecified (principal)
CPT/HCPCS: 36415; 74177; 80053; 80306; 81003; 83605; 83690; 85025; 86140; 93005; 96361; 96374; 99284; 99285; A9270; J2405; J7120; Q9967

== ENCOUNTER 2024-01-31 05:47 | Emergency (ER) | payer MEDICAID, SELFPAY ==
[2024-01-31 05:54] VITALS: BP 180/80; PULSE 94; RESP 16; TEMP 36.4; O2SAT 97; BMI 29.2
--- NOTE | 2024-01-31 06:17 | ED.ABDPAIN ---
HPI - Abdominal Pain General Chief Complaint: Abdominal Pain Stated Complaint: Abdominal pain Time Seen by Provider: 01/31/24 06:17 History of Present Illness HPI narrative: 2d ago constipation. has BM. started having nausea/ vomiting yesterday. all over abdomen pain 8/10 at home but now 4/ 10 when arrives here. tylenol at 0500. hx divertic 58-year-old woman presenting to the emergency department with concern of abdominal pain. She tells me also did hurts all, beyond her abdomen, over from trying to push out ?a crap?. No fever. She says she has a sour stomach. Symptoms seem to be gone with nausea and vomiting and then started to have some abdominal pain. No hematochezia noted. She does mention later that has tried a couple of enemas but actually isn't maintaining them more than a minute at a time. Related Data Home Medications ?Medication ?Instructions ?Recorded ?Confirmed benzonatate 100 mg capsule 100 mg PO Q6H PRN 02/12/22 02/12/22 cetirizine 10 mg tablet 10 mg PO DAILY 02/12/22 08/14/22 cholecalciferol (vitamin D3) 1,250 1,250 mcg PO QWEEK 02/12/22 02/12/22 mcg (50,000 unit) capsule famotidine 20 mg tablet 20 mg PO DAILY 02/12/22 08/14/22 ferrous gluconate 324 mg (38 mg 324 mg PO DAILY 02/12/22 02/12/22 iron) tablet fluticasone propionate 115 2 puff inhalation DAILY 02/12/22 08/14/22 mcg-salmeterol 21 mcg/actuation HFA inhaler (Advair HFA) lisinopril 5 mg tablet 5 mg PO DAILY 02/12/22 08/14/22 omeprazole 20 mg tablet,delayed 20 mg PO DAILY 02/12/22 02/12/22 release potassium chloride 20 mEq 20 meq PO BID 02/12/22 02/12/22 tablet,extended release(part/cryst) tiotropium bromide 18 mcg capsule 1 cap inhalation DAILY 02/12/22 02/12/22 with inhalation device (Spiriva with HandiHaler) venlafaxine 150 mg 150 mg PO DAILY 02/12/22 02/12/22 capsule,extended release 24 hr venlafaxine 75 mg capsule,extended 75 mg PO DAILY 02/12/22 02/12/22 release 24 hr fluconazole 150 mg tablet 150 mg PO .weekly 08/14/22 08/14/22 Previous Rx's ?Medication ?Instructions ?Recorded albuterol sulfate 90 mcg/actuation 2 puff inhalation Q4-6H PRN 08/15/22 aerosol inhaler (ProAir HFA) shortness of breath or wheezing #8.5 grams azithromycin 250 mg tablet 250 mg PO Q24H #6 tabs 08/15/22 cefdinir 300 mg capsule 300 mg PO BID #14 caps 08/15/22 prednisone 20 mg tablet 40 mg (2 x 20 mg) PO DAILYWM #4 08/15/22 tabs doxycycline hyclate 100 mg capsule 100 mg PO BID #14 caps 10/29/22 prednisone 20 mg tablet 20 mg PO BID 5 days #10 tabs 10/29/22 ondansetron 4 mg disintegrating 4 mg PO Q8H PRN nausea and 11/21/22 tablet vomiting #10 tabs polyethylene glycol 3350 17 17 g PO .daily-tid PRN #238 grams 01/31/24 gram/dose oral powder (Miralax) Allergies Allergy/AdvReac Type Severity Reaction Status Date / Time No Known Drug Allergies Allergy Verified 11/21/22 06:03 Review of Systems Status of ROS Reports: 6 or more systems reviewed and unremarkable except as noted in History and below [facility] Medical History Sigmoid diverticulitis ?K57.32 - Diverticulitis of large intestine without perforation or abscess without bleeding (ICD-10) Left breast mass ?N63.20 - Unspecified lump in the left breast, unspecified quadrant (ICD-10) Iron deficiency anemia ?D50.9 - Iron deficiency anemia, unspecified (ICD-10) Tobacco use disorder ?F17.200 - Nicotine dependence, unspecified, uncomplicated (ICD-10) Anxiety ?F41.9 - Anxiety disorder, unspecified (ICD-10) Cardiomegaly ?I51.7 - Cardiomegaly (ICD-10) Migraine ?G43.909 - Migraine, unspecified, not intractable, without status migrainosus (ICD-10) GERD (gastroesophageal reflux disease) ?K21.9 - Gastro-esophageal reflux disease without esophagitis (ICD-10) Hypertension ?I10 - Essential (primary) hypertension (ICD-10) Vitamin A deficiency ?E50.9 - Vitamin A deficiency, unspecified (ICD-10) H/O drug abuse ?F19.11 - Other psychoactive substance abuse, in remission (ICD-10) CHF (congestive heart failure) ?I50.9 - Heart failure, unspecified (ICD-10) Personality disorder ?F60.9 - Personality disorder, unspecified (ICD-10) Depression ?F32.A - Depression, unspecified (ICD-10) COPD (chronic obstructive pulmonary disease) ?J44.9 - Chronic obstructive pulmonary disease, unspecified (ICD-10) Chronic neck pain ?M54.2 - Cervicalgia (ICD-10) ?G89.29 - Other chronic pain (ICD-10) Chronic lower back pain ?M54.50 - Low back pain, unspecified (ICD-10) ?G89.29 - Other chronic pain (ICD-10) Hypokalemia ?E87.6 - Hypokalemia (ICD-10) Hyperlipemia ?E78.5 - Hyperlipidemia, unspecified (ICD-10) Surgical History History of colonoscopy ?Z98.890 - Other specified postprocedural states (ICD-10) History of section ?Z98.891 - History of uterine scar from previous surgery (ICD-10) History of breast biopsy ?Z98.890 - Other specified postprocedural states (ICD-10) No significant past surgical history Family History Father Heart disease FH: mental illness Mother High blood pressure Sister FH: mental illness Social History Narrative: She lives in [place] with her boyfriend Jordan who she designates healthcare power of bankruptcy attorney. Her code status is full. 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 She has 2 sons, 1 living at home. She does smoke cigarettes. She does not drink alcohol Highest level of school completed/degree received: high school graduate Smoking Status: Current every day smoker What tobacco products do you use: cigarettes Smoking packs per day: 1 Smoking cigarettes per day: 20.0 How often do you have a drink containing alcohol: never AUDIT-C Alcohol total score: 0 Non-prescribed substance use: denies use Caffeine: Yes service: No Exam Narrative: Exam Narrative: Pleasant. Looks generally uncomfortable. Good energy. Skin is warm and dry. Extremities are well perfused without edema. Abdomen normal bowel sounds is generally soft. Overweight. Diffusely mildly uncomfortable to palpation. No peritoneal signs. Lungs appear to be clear. Heart in elevated rate but regular rhythm. Oropharynx is sticky. Rectal exam without any stool in the vault following trip to the bathroom. Const: Vital Signs, click to edit/add: Vital Signs - 24 hr 01/31/24 05:54 01/31/24 06:37 Temperature 97.5 F L 97.5 F L Pulse Rate [Pulse Oximeter] 94 Respiratory Rate 16 Blood Pressure [Ri ght Upper Arm] 180/80 H Pulse Oximetry 97 Oxygen Delivery Me thod Room Air Documenting provider has reviewed patient's vital signs: yes Course Vital Signs Vital signs: Initial Vital Signs Temperature 97.5 F L 01/31/24 05:54 Temperature Source Temporal Artery Scan 01/31/24 05:54 Pulse Rate 94 01/31/24 05:54 Respiratory Rate 16 01/31/24 05:54 Blood Pressure 180/80 H 01/31/24 05:54 Blood Pressure Mean 113 H 01/31/24 05:54 Blood Pressure Position Sitting 01/31/24 05:54 Pulse Oximetry 97 01/31/24 05:54 Oxygen Delivery Method Room Air 01/31/24 05:54 Vital Signs Temperature 97.5 F L 01/31/24 05:54 Pulse Rate 94 01/31/24 05:54 Respiratory Rate 16 01/31/24 05:54 Blood Pressure 180/80 H 01/31/24 05:54 Pulse Oximetry 97 01/31/24 05:54 Oxygen Delivery Method Room Air 01/31/24 05:54 Temperature 97.2 F L 01/31/24 10:00 Pulse Rate 88 01/31/24 10:00 Respiratory Rate 20 01/31/24 10:00 Blood Pressure 158/84 H 01/31/24 10:00 Pulse Oximetry 96 01/31/24 10:00 Oxygen Delivery Method Room Air 01/31/24 10:00 Medications Administered Medications: Discontinued Medications Generic Name Dose Route Start Last Admin Trade Name Flor PRN Reason Stop Dose Admin Albuterol/Ipratropium 1 neb 01/31/24 07:57 01/31/24 08:06 Iprat-Albut 0.5-2.5 Mg/3 Ml Neb IH 01/31/24 07:58 1 neb ONCE ONE Administration Sodium Chloride 1,000 mls @ 1,000 mls/hr 01/31/24 06:22 01/31/24 08:17 0.9 % Sodium Chloride 1000 Ml IV 01/31/24 07:21 Infused .Q1H ONE Infusion Ketorolac Tromethamine 15 mg 01/31/24 06:22 01/31/24 06:37 Ketorolac 15 Mg/Ml Inj IVP 01/31/24 06:23 15 mg ONCE ONE Administration Ondansetron HCl 4 mg 01/31/24 06:22 01/31/24 06:33 Ondansetron 2 Mg/Ml Inj IVP 01/31/24 06:23 4 mg ONCE ONE Administration MDM - Abdominal Pain MDM Narrative Medical decision making narrative: Seems to have gastrointestinal illness, vomiting illness with residual abdominal discomfort. Abdomen exam generally I would say is reassuring with mild discomfort and it diffusely so. Seems was there could be some exacerbation of heartburn the way she describes it not localizing as I would expect for diverticulitis. Recent constipation I suppose might be exacerbating symptoms. Does not seem to have bowel obstruction. Urinalysis? Will check labs, IV hydration, antiemetics and some pain medication reassess. White count is mildly elevated not inconsistent with vomiting illness/gastritis. Still uncomfortable but admits that it is not any worse. Has been though having some difficulty breathing says she is short of air. Underlying history of COPD. She is mildly tachypneic on reassessment. Offered DuoNeb. She thinks that would help. After DuoNeb does note significant improvement but still with generalized abdominal discomfort. Had been in the bathroom trying to have a bowel movement. Abdomen remains soft and only minimally tender to palpation. Will be checking abdominal x-ray Abdominal x-ray by my read looks to have a good deal stool throughout the abdomen. No concerning air-fluid levels. With this finding and lack of stool in the rectal vault will encourage more treatment from above. Will give a bottle of Mag citrate here in the ER. She may choose to drink this at home. Overall improved. Has managed to briefly sleep in the ER See patient discharge plan for further discussion Medical Records Attestation: I reviewed the patient's medical records. Lab Data Attestation: I reviewed the patient's lab results. Labs: Lab Results 01/31/24 01/31/24 Range/Units 06:23 06:30 WBC 12.80 H (4.50-11.00) K/uL RBC 4.32 (4.00-5.20) m/uL Hgb 10.1 L (12.0-16.0) gm/dL Hct 35.9 (33.0-51.0) % MCV 83 (80-100) fL MCH 23 L (26-34) pg MCHC 28 L (32-36) gm/dL RDW Coeff of Dolores 19.0 H (11.5-15.5) % Plt Count 266 (140-440) K/uL Neut % (Auto) 71.2 (42.0-72.0) % Lymph % (Auto) 14.4 L (20-44) % [place]mer % (Auto) 9.7 (0.0-11.0) % Eos % (Auto) 4.4 (0.0-7.0) % Baso % (Auto) 0.1 (0.0-3.0) % Neut # (Auto) 9.10 H (1.7-7.0) K/uL Lymph # (Auto) 1.80 (0.90-2.90) K/uL [place] # (Auto) 1.20 H (0.00-0.90) K/UL Eos # (Auto) 0.60 H (0.00-0.50) K/uL Baso # (Auto) 0.00 (0.00-0.30) K/uL Abs Immat Gran (auto) 0.00 (0.00-0.30) K/uL Imm/Tot Granulo (auto) 0.2 % Sodium 138 (135-149) mmol/L Potassium 4.0 (3.6-5.1) mmol/L Chloride 104 (96-114) mmol/L Carbon Dioxide 29 (20-32) mmol/L Anion Gap 5 L (7-15) mEq/L BUN 9 (7-30) mg/dL Creatinine 0.6 (0.5-1.5) mg/dL Estimated Creat Clear 88.25 Estimated GFR 104 ml/min Glucose 120 H (60-115) mg/dL Calcium 8.5 (8.4-10.6) mg/dL C-Reactive Protein 1.2 H (0.5-1.0) mg/dL Urine Color Yellow (Yellow) Urine Appearance Clear (Clear) Urine pH 7.0 (5.0-8.5) Ur Specific [place] 1.025 (1.000-1.030) Urine Protein Negative (Negative) Urine Glucose (UA) Negative (Negative) Urine Ketones Negative (Negative) Urine Blood Negative (Negative) Urine Nitrite Negative (Negative) Urine Bilirubin Negative (Negative) Urine Urobilinogen 0.2 (0.2-1.0) Ur Leukocyte Esterase Negative (Negative) Urine RBC 0-2 (0-2) Urine WBC 0-2 (0-5) Ur Squamous Epith Cells Moderate A (None-Few) Urine Bacteria Moderate A (None) Urine Mucus Many A (None) Discharge Plan Discharge Clinical Impression: Abdominal pain, Constipation, Vomiting Patient Disposition: Home w/ Parent or Adult Condition: Improved Additional Instructions: Focus on hydration. Be sure to drink 2-3 L of water daily. I am prescribing some MiraLax equivalent for you. You can take that as up to 3 doses in a day. Dilute each dosing at least 8 oz of liquid. Adjust to stool consistency and take for 1-2 weeks. Take his nebulizer tubing and cup with you. Drink this magnesium citrate now or when you get home and then repeat next day if no good result. If you feel like there is hard stool right there, then an enema can be helpful and repeat in an hour if no good result. Does need to remain in longer than you mentioned to me. Prescriptions: New polyethylene glycol 3350 [Miralax] 17 gram/dose powder 17 g PO .daily-tid PRNQty: 238 1RF No Action doxycycline hyclate 100 mg capsule 100 mg PO BID Qty: 14 0RF prednisone 20 mg tablet 20 mg PO BID 5 Days Qty: 10 0RF ondansetron 4 mg tablet,disintegrating 4 mg PO Q8H PRN (Reason: nausea and vomiting) Qty: 10 0RF omeprazole 20 mg tablet,delayed release (DR/EC) 20 mg PO DAILY potassium chloride 20 mEq tablet,ER particles/crystals 20 meq PO BID lisinopril 5 mg tablet 5 mg PO DAILY venlafaxine 150 mg capsule,extended release 24hr 150 mg PO DAILY Patient Comments: TAKE ONE CAPSULE BY MOUTH ONCE DAILY WITH A MEAL. TAKE WITH 75 MG CAPSULE FOR A TOTAL DAILY DOSE OF 225 MG. venlafaxine 75 mg capsule,extended release 24hr 75 mg PO DAILY Spiriva with HandiHaler 18 mcg capsule, w/inhalation device 1 cap INHALATION DAILY Advair HFA 115-21 mcg/actuation HFA aerosol inhaler 2 puff INHALATION DAILY Patient Comments: INHALE 2 PUFFS BY MOUTH TWICE DAILY benzonatate 100 mg capsule 100 mg PO Q6H PRN Patient Comments: TAKE 1 CAPSULE BY MOUTH THREE TIMES DAILY IF NEEDED FOR COUGH cetirizine 10 mg tablet 10 mg PO DAILY ferrous gluconate 324 mg (38 mg iron) tablet 324 mg PO DAILY Patient Comments: TAKE 1 TABLET BY MOUTH ONCE A DAY WITH A MEAL famotidine 20 mg tablet 20 mg PO DAILY cholecalciferol (vitamin D3) 1,250 mcg (50,000 unit) capsule 1,250 mcg PO QWEEK Patient Comments: TAKE 1 CAPSULE BY MOUTH ONCE WEEKLY fluconazole 150 mg tablet 150 mg PO .weekly Patient Comments: TAKE 1 TABLET BY MOUTH 1 TIME A WEEK FOR 3 WEEKS albuterol sulfate [ProAir HFA] 90 mcg/actuation HFA aerosol inhaler 2 puff inhalation Q4-6H PRN (Reason: shortness of breath or wheezing) Qty: 8.5 0RF azithromycin 250 mg Tablet 250 mg PO Q24H Qty: 6 0RF cefdinir 300 mg capsule 300 mg PO BID Qty: 14 0RF prednisone 20 mg Tablet 40 mg PO DAILYWM Qty: 4 0RF Rx Instructions: Take 40 mg daily tomorrow and next day, then resume taper of prednisone previously prescribed. Follow Up/Referrals: Tequila Whyte PA-C [Primary Care Provider] - Stand Alone Forms: [employer] Info Instructions
[2024-01-31] MEDS: 0.9 % SODIUM CHLORIDE 1000 ml 1,000 ML IV (06:30)
[2024-01-31] MEDS: ONDANSETRON 2 MG/ML inj 4 MG IVP (06:33)
[2024-01-31 06:37] VITALS: TEMP 36.4
[2024-01-31 06:37] LABS: Basophils Percent Auto 0.1 % (0.0-3.0); Eosinophils Percent Auto 4.4 % (0.0-7.0); Hematocrit 35.9 % (33.0-51.0); Hemoglobin* 10.1 gm/dL (12.0-16.0); Immature Granulocytes Pct Auto 0.2 %; Lymphocytes Percent Auto 14.4 % (20-44); Mean Corpuscular HGB Conc 28 gm/dL (32-36); Mean Corpuscular Hemoglobin 23 pg (26-34); Mean Corpuscular Volume 83 fL (80-100); Monocytes Percent Auto 9.7 % (0.0-11.0); Neutrophils Percent Auto 71.2 % (42.0-72.0); Platelet Count* 266 K/uL (140-440); Red Blood Count 4.32 m/uL (4.00-5.20)
[2024-01-31] MEDS: KETOROLAC 15 MG/ML inj IVP (06:37)
--- OUTSIDE RECORDS SUMMARY | 2024-01-31 06:37 | XMS_ITS | Clinical Summary ---
Author Organization [employer] [facility] Address [place], [place] [address] Care Team Providers Care Historical Interpreter Name Role Phone Bradley Kumar MD Unavailable Un available Carola Deshpande DO Primary Care Provider [phone] Allergies No known active allergies Medications Medication Sig Dispensed Refills Start Date End Date Status aspirin (ECOTRIN) 81 mg enteric coated tabletIndications :Hypertension Take 1 tablet by mouth once daily with a meal. For heart. 90 tablet 1 03/08/2017 Active acetaminophen (TYLENOL) 500 mg capsule Take 2 capsules by mouth every 8 hours if needed. Max acetaminophen dose: 4000mg in 24 hrs. 0 Active fluticasone (50 mcg per actuation) nasal solution (FLONASE)Indicati ons:Nasal congestion,Sinus pressure Inhale 1 [place] in the nostril(s) once daily if needed. 1 Bottle 12 07/22/2020 Active traZODone (DESYREL) 100 mg tabletIndications :Anxiety Take 1 Tablet (100 mg) by mouth at bedtime. 90 Tablet 3 09/04/2022 Active cetirizine (ZYRTEC) 10 mg tabletIndications :Nasal congestion,Sinus pressure Take 1 Tablet (10 mg) by mouth once daily. 90 Tablet 3 02/26/2023 Active ibuprofen (ADVIL; MOTRIN) 800 mg tabletIndications :Nonintractable headache, unspecified chronicity pattern, unspecified headache type Take 1 Tablet (800 mg) by mouth every 6 hours if needed for Pain. 90 Tablet 1 02/26/2023 Active lisinopriL (PRINIVIL; ZESTRIL) 5 mg tabletIndications :Hypertension,Chr onic congestive heart failure, unspecified heart failure type (HC) Take 1 Tablet (5 mg) by mouth once daily. 90 Tablet 3 02/26/2023 Active potassium chloride (KLOR-CON) 20 mEq extended-release tablet (part/cryst)Indic ations:Hypokalemi a Take 1 Tablet (20 mEq) by mouth two times daily with meals. 180 Tablet 3 02/26/2023 Active albuterol HFA (PRO-AIR; VENTOLIN; PROVENTIL) 90 mcg/actuation inhalerIndication s:COPD exacerbation (HC),Chronic obstructive pulmonary disease, unspecified COPD type (HC) Inhale 2 Puffs by mouth every 4 hours if needed for Shortness Of Breath or Wheezing. 1 Each 2 05/30/2023 Active albuterol-ipratro pium (DUONEB) (2.5-0.5 mg) in 3 mL NEBULIZATION solutionIndicatio ns:COPD exacerbation (HC),Chronic obstructive pulmonary disease, unspecified COPD type (HC),Tobacco use disorder Inhale 3 mL via a nebulizer every 6 hours if needed for Shortness Of Breath or Wheezing. 180 mL 3 05/30/2023 Active albuterol (PROVENTIL) 0.083 % neb solutionIndicatio ns:Subacute cough Inhale 3 mL (2.5 mg) via a nebulizer every 4 hours if needed for Shortness of Breath 1st choice, Cough 2nd choice or Wheezing 2nd choice. 100 mL 07/17/2023 Active venlafaxine (EFFEXOR XR) 150 mg Extended-Release capsuleIndication s:Anxiety,Depress ion, unspecified depression type TAKE ONE CAPSULE BY MOUTH ONCE DAILY WITH A MEAL. TAKE WITH 75 MG CAPSULE FOR A TOTAL DAILY DOSE OF 225 MG. 90 Capsule 1 08/13/2023 Active famotidine (PEPCID) 20 mg tabletIndications :Gastroesophageal reflux disease with esophagitis without hemorrhage Take 1 Tablet (20 mg) by mouth two times daily. 180 Tablet 1 09/20/2023 Active fluticasone propion-salmetero L (ADVAIR) 115-21 mcg/actuation inhalerIndication s:COPD exacerbation (HC) INHALE 2 PUFFS BY MOUTH TWICE DAILY 36 g 10/01/2023 Active venlafaxine (EFFEXOR XR) 75 mg cp24 Extended-Release capsuleIndication s:Anxiety,Depress ion, unspecified depression type TAKE 1 CAPSULE BY MOUTH EVERY DAY WITH A MEAL TAKE IN COMBINATION WITH 150MG CAPSULE TO EQUAL 225MG EVERY DAY 90 Capsule 11/21/2023 Active predniSONE (DELTASONE) 20 mg tabletIndications :COPD exacerbation (HC) Take 40 mg qd for 5 days, then 20 mg qd for 3 days, then 10 mg qd for 4 days. 15 Tablet 01/07/2024 Active benzonatate (Tessalon Perles) 100 mg capsuleIndication s:Subacute cough Take 1 Capsule (100 mg) by mouth 3 times daily if needed for Cough. 21 Capsule 07/17/2023 01/07/20 24 Discontinue d(*Med complete/Re gimen complete/Le dayanara of care change) methylPREDNISolon e (Medrol, Omid,) 4 mg tabletIndications :Subacute cough Take by mouth as instructed per packaging. 21 Tablet 07/17/2023 01/07/20 24 Discontinue d(*Med complete/Re gimen complete/Le dayanara of care change) triamcinolone (ARISTOCORT; KENALOG) 0.1 % creamIndications: Arthropod bite, initial encounter Apply topically to affected area(s) three times daily. 30 g 09/03/2023 01/07/20 24 Discontinue d(*Med complete/Re gimen complete/Le dayanara of care change) doxycycline monohydrate 100 mg capsuleIndication s:COPD exacerbation (HC) Take 1 Capsule (100 mg) by mouth two times daily for 7 days. 14 Capsule 01/07/2024 01/14/20 24 levoFLOXacin (LEVAQUIN) 500 mg tabletIndications :COPD exacerbation (HC) Take 1 Tablet (500 mg) by mouth once daily for 7 days. 7 Tablet 01/15/2024 01/22/20 24 Active Problems Problem Noted Date Diagnosed Date History of drug dependence/abuse 09/03/2023 PAD (peripheral artery disease) 09/14/2022 Overview: Mild bilateral lower extremities Tequila Whyte PA-C, Family Medicine.....................09/14/2022 12:52 PM Prediabetes 09/12/2021 Hypokalemia 09/12/2021 Iron deficiency anemia 09/12/2021 Hyperlipidemia 09/12/2021 Claustrophobia 09/08/2021 Chronic bilateral low back pain with right-sided sciatica 09/08/2021 Neck pain, chronic 09/08/2021 Onychomycosis 09/08/2021 Bilateral foot pain 09/08/2021 Finger pain, right 09/08/2021 COVID-19 virus infection 08/03/2021 Chronic obstructive pulmonary disease 11/26/2019 Depression 08/29/2017 Personality disorder 08/29/2017 Refused influenza vaccine 05/25/2016 CHF (congestive heart failure) 10/09/2014 Anxiety 10/09/2014 H/O drug abuse 10/09/[address] scan 07/07/2013 Overview: Impression 1. No sign of pulmonary embolism. 2. There is bilateral central peribronchial soft tissue thickening and clusters of inflammatory nodules in the left hilar region. These findings suggest an acute infectious or inflammatory process. 3. Mild bilateral hilar lymphadenopathy. 4. 1.8 x 1.3 cm cystic lesion in the left breast. Correlation with mammography workup is recommended. 2012 Vitamin D deficiency 03/07/2012 Hypertension 10/18/2011 Methamphetamine abuse, episodic 11/25/2006 Overview: Treatment katie colón 09/16 through 11/16 and now at [facility] Tobacco use disorder 10/18/2006 Unspecified episodic mood disorder 08/13/2006 Esophageal reflux 08/13/2006 Migraine, unspecified, witho ut mention of intractable migraine without mention of status migrainosus 08/10/2006 Rectal polyp Resolved Problems Problem Noted Date Diagnosed Date Resolved Date COPD exacerbation 02/03/2018 08/03/2021 Antibiotic-induced yeast infection 11/20/2015 02/03/2018 Bilateral pneumonia 10/10/2014 02/04/20 18 Bronchitis 10/09/2014 02/03/2018 Hypoxia 10/09/2014 02/03/2018 Tachycardia 10/09/2014 02/03/2018 Elevated troponin 10/09/2014 02/03/2018 Congestive heart failure, unspecified 12/19/2006 03/06/2011 Overview: Acute edema of lung, unspecified 11/25/2006 03/06/2011 Transient hypertension of pr egnancy, antepartum 11/25/2006 03/06/2011 Pain in joint, pelvic region and thigh 08/10/2006 08/10/2006 Elderly multigravida with an tepartum condition or complication 08/10/2006 03/06/2011 Encounters Date Type Department Care Team Description 01/15/2024 Telephone [facility] [address] [place] [address] Tequila Whyte PA New Med Request (doxycycline monohydrate 100 mg capsule) 01/07/2024 7:50 AM CDT Office Visit [facility] [address] [place] [address] Tequila Whyte PA URI (Started on Sat.-body aches, headache, runny nose, productive cough-no known fever) 01/07/2024 Travel 11/22/2023 6:00 PM CDT Office Visit [facility] [address] [place] [address] Lia Alan, WATER JET LOOM FIXER Leg Pain/problem 11/22/2023 Travel 11/20/2023 Refill [facility] [address] [place] [address] Carola Deshpande DO Refill Request (VENLAFAXINE ER 75 MG CAP) from Last 3 Months Immunizations Name Administration Dates Next Due Influenza, IIV3 (Age 6-35 mos) 07/08/2013 Influenza, IIV3 (Age >=3 years) 06/14/2006 Influenza, IIV4 07/22/2020,03/08/2017,08/17/2016 Pneumococcal Poly,23-Valent (Pneumovax) 07/08/20 13 Pneumococcal conj 13-Valent (Prevnar 13) 017 Tdap 03/06/2011 Family History Medical History Relation Name Comments Heart Disease Father Psychiatric illness Father Hypertension Mother Other Mother dementia Thyroid Disease Mother Psychiatric illness Sister 2 Deborah depressi on Psychiatric illness Sister 3 Amarilis bipolar Cancer-breast No Family History Relation Name Status Comments Father Alive Maternal Grandfather Maternal Grandmother Mother Alive Paternal Grandfather Paternal Grandmother Sister 1 Alive x2 Sister 2 Deborah Sister 3 Amarilis Son Alive x2 Social History Tobacco Use Types Packs/Day Years Used Date Smoking Tobacco: Every Day Cigarettes 0.5 30 Started: 12/28/1997 Smokeless Tobacco: Never Tobacco Cessation:Ready to Q uit: No; Counseling Given: Yes Alcohol Use Standard Drinks/Week Comments No 0 (1 standard drink = 0.6 oz pur e alcohol) PHQ-2 Answer Date Recorded PHQ-2 TOTAL SCORE 2 02/26/2023 Social Connections Answer Date Recorded Frequency of Communication with Friends and Fami ly 0 07/17/2023 Financial Resource Strain Answer Date R ecorded Difficulty of Paying Living Expenses 3 07/17/2023 Difficulty of Paying Living Expenses Not on file 07/17/2023 Food Insecurity Answer Date Recorded Worried About Running Out of Food in the Last Ye ar 1 07/17/2023 Transportation Needs Answer Date Record ed Lack of Transportation (Medical) 1 07/17/2023 Housing Stability Answer Date Recorded Unable to Pay for Housing in the Last Year 1 07/17/2023 Sex and Gender Information Value Date Recorded Sex Assigned at Not on file Gender Identity Not on file Sexual Orientation Not on file Obstetrics History Para Term AB IAB SAB Ectopic Multiple Livin g Live Births 2 2 0 2 2 2 Date Outcome GA Total Labor Labor/2nd/3rd Weight Sex Type Anes PTL Jessica A1 A5 Name Clin 1998 36w 0d 10h 00m/ 2.21 kg (4 lb 14 oz) M Vag Epidur al Livin g Rakesh Bender Delivery Location:[facility] Comments:INDUCTION for oligohydramnios 7 32w 0d Livin g Delivery Location:[place], [place] Comments:CHF decomp du e to meth use Last Filed Vital Signs Vital Sign Reading Time Taken Comments Blood Pressure 164/89 01/07/2024 8:05 AM CDT Pulse 100 01/07/2024 8:05 AM CDT Temperature 37.1 ??C (98.7 ??F) 01/07/2024 8:05 AM CD T Respiratory Rate 14 11/22/2023 6:49 PM CDT Oxygen Saturation 99% 01/07/2024 8:05 AM CDT Inhaled Oxygen Concentration - - Weight 70.8 kg (156 lb) 01/07/2024 8:05 AM CDT Height 159.5 cm (5' 2.8) 02/26/2023 11:54 AM CD T Body Mass Index 27.81 02/26/2023 11:54 AM CDT Plan of Treatment Health Maintenance Due Date Last Done Comments Pap test for age 21-65 03/06/2014 03/06/2011, 2006 Zoster (shingles) series for age 50+ (1 of 2) 2015 Tetanus booster 03/06/2021 03/06/2011 Mammogram for age 45-75 11/08/2022 11/09/19, 12/26/2017, 03/20/2012, Additional history exists COVID-19 vaccine series ( season) 2023 BMI (ht and wt on same day) for age 18+ 02/27/2024 02/26/2023, 07/22/2020, 09/15/2019, Additional history exists Depression screening for age 12+ 02/27/2024 02/26/2023, 09/09/2021, 09/08/2021, Additional history exists Influenza for age 50-64 03/09/2024 07/22/19, 03/08/2017, 08/17/2016, Additional history exists Colonoscopy through age 75 02/02/2028 02/01/2018 Lipids for age 45-75 02/27/2028 02/26/2023, 09/08/2021, 07/22/2020, Additional history exists Pneumococcal series for age 6-64 (3 of 3 - PPSV23 or PCV20) 2030 08/17/2016, 07/08/2013 Hepatitis C screening for ag e 18-79 Completed 08/29/2006 Tdap Completed 03/06/2011 HIV for age 15-65 Completed 02/26/2023 Goals Goal Patient Goal Type Associated Problems Recent Progress Patient-Stated? 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 support resource room teacher Procedure Name Priority Date/Time Associated Diagnosis Comments CBC WITH AUTO DIFFERENTIAL STAT 11/22/2023 7:39 PM CDT Leg cramps MAGNESIUM STAT 11/22/2023 7:39 PM CDT Leg cramps BASIC METABOLIC PANEL STAT 11/22/2023 7:39 PM CDT Leg cramps CBC WITH AUTO DIFFERENTIAL STAT 11/22/2023 7:39 PM CDT Leg cramps LC HIV-1/O/2, 4TH GENERATION Routine 02/26/2023 12:47 PM CDT Screening for HIV (human immunodeficiency virus) LIPID PANEL W REFLEX MEASURED LDL Routine 02/26/2023 12:47 PM CDT Hypertension Hyperlipidemia, unspecified hyperlipidemia type XR MAMMO BILAT SCREENING Routine 11/08/2021 11:17 AM CDT Visit for screening mammogram COLONOSCOPY 02/01/2018 1:28 PM CDT BESSEMER BOTTOM MAKER THIN PREP PAP SCREEN IMAGED Routine 03/06/2011 10:30 AM CDT Screening for malignant neoplasm of the cervix ANTI HCV Routine 08/29/2006 9:45 AM BOTTOM SPRAYER Supervision Of Other Normal from Last 3 Months or Most Recently Relevant to Health Maintenance Results * (ABNORMAL) CBC WITH AUTO DIFFERENTIAL (11/22/2023 7:39 PM CDT) WHITE BLOOD COUNT 7.6 4.5 - 11.0 thou/cu mm 11/22/2023 8:07 PM T [facility] RED BLOOD COUNT 4.35 4.00 - 5.20 mil/cu mm 11/22/2023 8:07 PM T [facility] HEMOGLOBIN 10.0(L) 12.0 - 16.0 g/dL 11/22/2023 8:07 PM T [facility] HEMATOCRIT 36.1 33.0 - 51.0 % 11/22/2023 8:07 PM [facility] MCV 83 80 - 100 fL 11/22/2023 8:07 PM [facility] MCH 23.0(L) 26.0 - 34.0 pg 11/22/2023 8:07 PM [facility] MCHC 27.7(L) 32.0 - 36.0 g/dL 11/22/2023 8:07 PM [facility] RDW 17.6(H) 11.5 - 15.5 % 11/22/2023 8:07 PM [facility] PLATELET COUNT 378 140 - 440 thou/cu mm 11/22/2023 8:07 PM [facility] MPV 9.4 6.5 - 11.0 fL 11/22/2023 8:07 PM [facility] % NEUT 50.9 % 11/22/2023 8:07 PM [facility] % LYMPH 33.9 % 11/22/2023 8:07 PM [facility] % MONO 10.5 % 11/22/2023 8:07 PM [facility] % EOS 4.0 % 11/22/2023 8:07 PM [facility] % BASO 0.7 % 11/22/2023 8:07 PM [facility] ABSOLUTE NEUTROPHILS 3.9 1.7 - 7.0 thou/cu mm 11/22/2023 8:07 PM [facility] ABSOLUTE LYMPHOCYTES 2.6 0.9 - 2.9 thou/cu mm 11/22/2023 8:07 PM [facility] ABSOLUTE MONOCYTES 0.8 <0.9 thou/cu mm 11/22/2023 8:07 PM [facility] ABSOLUTE EOSINOPHILS 0.3 <0.5 thou/cu mm 11/22/2023 8:07 PM [facility] ABSOLUTE BASOPHILS 0.1 <0.3 thou/cu mm 11/22/2023 8:07 PM [facility] Blood BLOOD SPECIMEN / Unknown Venipuncture / Unknown 11/22/2023 7:39 PM CDT 11/22/2023 7:42 PM CDT Lia E Furlong WATER JET LOOM FIXER HEMATOLOGY Performing Organization Address City/[facility]/ZIP Co de Phone Number [facility] [address] [place] [address] * MAGNESIUM (11/22/2023 7:39 PM CDT) MAGNESIUM 2.0 1.6 - 2.6 mg/dL 11/22/2023 8:08 PM [facility] Blood BLOOD SPECIMEN / Unknown Venipuncture / Unknown 11/22/2023 7:39 PM CDT 11/22/2023 7:42 PM CDT Lia E Furlong WATER JET LOOM FIXER CHEMISTRY Performing Organization Address [facility]/ZIP Co de Phone Number [facility] [address] [place] [address] * (ABNORMAL) BASIC METABOLIC PANEL (11/22/2023 7:39 PM CDT) SODIUM 140 136 - 145 mmol/L 11/22/2023 8:08 PM [facility] POTASSIUM 4.0 3.5 - 5.1 mmol/L 11/22/2023 8:08 PM [facility] CHLORIDE 102 98 - 107 mmol/L 11/22/2023 8:08 PM [facility] CO2,TOTAL 30(H) 22 - 29 mmol/L 11/22/2023 8:08 PM [facility] ANION GAP 8 5 - 18 11/22/2023 8:08 PM [facility] GLUCOSE 99 70 - 99 mg/dL 11/22/2023 8:08 PM [facility] CALCIUM 9.4 8.6 - 10.0 mg/dL 11/22/2023 8:08 PM [facility] BUN 8 6 - 20 mg/dL 11/22/2023 8:08 PM [facility] CREATININE 0.70 0.50 - 0.90 mg/dL 11/22/2023 8:08 PM [facility] BUN/CREAT RATIO 11 10 - 20 4 8:08 PM CDT [facility] eGFR >90 >90 mL/min/1.7 3m2 11/22/2023 8:08 PM CDT [facility] Comment:As of 2021, eG FR is calculated by the CKD-EPI creatinine equation without race adjustment. ??eGFR can be influenced by muscle mass, exercise, and diet. ??The reported eGFR is an estimation only and is only applicable if the renal function is stable. Blood BLOOD SPECIMEN / Unknown Venipuncture / Unknown 11/22/2023 7:39 PM CDT 11/22/2023 7:42 PM CDT Lia Alan NP CHEMISTRY [facility] [address] [place] [address] * LC HIV-1/O/2, 4TH GENERATION (02/26/2023 12:47 PM CDT) HIV Scr 4th Gen Non Reactive Non Reactive 02/28/2023 2:08 PM CDT [facility] Comment: HIV Negative HIV-1/HIV-2 antibodies and HIV-1 p24 antigen were NOT detected. There is no laboratory evidence of HIV infection. Blood BLOOD SPECIMEN / Unknown Venipuncture / Unknown 02/26/2023 12:47 PM CDT 02/26/2023 12:50 PM CDT Narrative [facility] ([facility] - 02/28/2023 2:08 PM CDT Performed at: ??[address] ??[id number] Hose Finisher: Gurdeep Mac MD, Phone: ??[phone] Carola Deshpande DO LABORATORY [facility] ([facility]) [address] [place] [id number], [place] * (ABNORMAL) LIPID PANEL W REFLEX MEASURED LDL (02/26/2023 12:47 PM CDT) CHOLESTEROL,TOTAL 185 100 - 199 mg/dL 02/26/2023 1:30 PM T [facility] TRIGLYCERIDES 261(H) <150 mg/dL 02/26/2023 1:30 PM T [facility] HDL CHOLESTEROL 44 >40 mg/dL 1:30 PM CDT [facility] NON-HDL CHOLESTEROL 141 <145 mg/dl 02/26/2023 1:30 PM [facility] CHOL/HDL RATIO 4.20 <4.50 02/26/2023 1:30 PM T [facility] LDL CHOLESTEROL 89 <=130 mg/dL 02/26/2023 1:30 PM T [facility] VLDL CHOLESTEROL 52(H) <=30 mg/dL 02/26/2023 1:30 PM T [facility] PROVIDER ORDERED STATUS RANDOM 02/26/2023 1:30 PM [facility] Blood BLOOD SPECIMEN / Unknown Venipuncture / Unknown 02/26/2023 12:47 PM CDT 02/26/2023 12:50 PM CDT Carola Deshpande DO CHEMISTRY Performing Organization Address City/State/[facility] Co de Phone Number [facility] [address] [place] [address] * XR MAMMO BILAT SCREENING (11/08/2021 11:17 AM CDT) Anatomical Region Laterality Modality BREASTS, Breast Left, Breast Right Bilateral Mammography Impressions 11/09/2021 6:31 AM CDT ??There is no radiographic evidence for malignancy. ??Recommend annual mammograms. MAMMOGRAM ASSESSMENT: ??ACR 2 Benign PATIENTS: You will also receive a letter with your examination results in an easy to read format. ??If you have questions about your results, please contact your referring provider. Narrative 11/09/2021 6:31 AM CDT For Patients: As a result of the Cures Act, medical imaging exams and procedure reports are released immediately into your electronic medical record. You may view this report before your referring provider. If you have questions, please contact your health care provider. XR MAMMO BILAT SCREENING [[id number]] CLINICAL HISTORY: ??This is an asymptomatic 56 y.o. patient. INDICATION FOR EXAM: Mammogram Screening. TECHNIQUE: CC & MLO views were obtained. ??This study was evaluated with the assistance of Computer-Aided Detection. COMPARISON FILMS: Yes 12/26/17 [facility] [employer] ?? FINDINGS: ??The breasts have scattered areas of fibroglandular density. ??No suspicious masses or microcalcifications. ??Benign appearing mass(es) within right breast and Post biopsy changes right breast. Carola Deshpande DO MAMMO * COLONOSCOPY (02/01/2018 1:28 PM CDT) 02/01/2018 1:28 PM CDT Narrative Transcriptions Naveen Rubin DO - 02/01/2018 2:53 PM CDT Patient Name: Jessica Sweeney Procedure Date: 02/01/2018 Gender: Female Date of : 1965 Admit Type: Ambulatory Procedure: Colonoscopy Proceduralist: Naveen Rubin MD [facility] Indications/Pre-Op Diagnosis: Screening for colorectal malignant neoplasm, This is the patient's first colonoscopy Medications: Propofol per Anesthesia Procedure Description: The patient had risks, benefits and alternatives explained to andgave informed consent. The patient had a stable cardiopulmonary status and judged an adequate candidate for conscious sedation. The colonoscope was passed through the anus and advanced to thececum, identified by appendiceal orifice and ileocecal valve. Thecolonoscopy was performed without difficulty. The patient tolerated the procedure well. The quality of the bowel preparation was good. The ileocecal valve, appendiceal orifice, and rectum were photographed. Complications: No immediate complications. Estimated Blood Loss & Specimen: Estimated blood loss: none. Specimen collected - Yes and sent to Laboratory Findings: A 5 mm polyp was found in the rectum. The polyp wassemi-pedunculated. The polyp was removed with a hot snare. Resection and retrieval were complete. Verification of patient identification for the specimen was done. Estimated blood loss was minimal. Non-bleeding internal hemorrhoids were found during retroflexion. The hemorrhoids were Grade II (internal hemorrhoids that prolapse butreduce spontaneously). A few small-mouthed diverticula were found in the sigmoid colon. Impressions/Post-Op Diagnosis: - One 5 mm polyp in the rectum, removed with a hot snare. Resectedand retrieved. - Non-bleeding internal hemorrhoids. - Diverticulosis in the sigmoid colon. Recommendation: - Discharge patient to home. - Patient has a contact number available for emergencies. The signsand symptoms of potential delayed complications were discussed with the patient. Return to normal activities tomorrow. Written discharge instructions were provided to the patient. - High fiber diet. - Continue present medications. - Await pathology results. - Repeat colonoscopy in 5-10 years for surveillance based onpathology results. Naveen Rubin MD 02/01/2018 2:53:03 PM This report has been signed electronically. Note Initiated On: 02/01/2018 1:28 PM Naveen Rubin DO PROCEDURE ORD * BESSEMER BOTTOM MAKER THIN PREP PAP SCREEN IMAGED (03/06/2011 10:30 AM CDT) CYTOLOGY CYTOPATHOLOGY REPORT [facility] Status: Final Status ?[id number] CLINICAL INFORMATION Last Date of LMP ? :Premenarcheal Last Pap Date ?:02-09-11 Last Pap Result ?:NIL ABN [place]/Bx Past 5 YRS :None Hormone Usage ?:BCP/OCP/Patch/R ing Menstrual Status ? :Regular Periods [place]/Bx done today ? :No Additional Information :None given HPV Request ?:HPV if ASCUS SPECIMEN SOURCE ?:Cervical/vagina l ThinPrep Vial, screening SPECIMEN ADEQUACY ?:Satisfactory for evaluation Endocervical component ? present. INTERPRETATION/RES ULT Negative for intraepithelial lesion or malignancy (NIL) Cytology 1st Screener ??:kek Signed by ?:shari This specimen was screened by the FDA approved ThinPrep Imaging System and manually reviewed. NOTE: ??The Pap test is a screening technique, not a diagnostic procedure. ??It is used ??primarily to screen for squamous cancers and precursor lesions. ??Published studies have shown that it is subject to both false negative and false positive results. ??The pap test should not be used as the sole means to diagnose or exclude pre-malignant and malignant lesions. COLLECTED:03/06/11 ? ACCESSIONED: ??03/07/11 ?? SIGNED: ??03/09/11 [facility] [place] CODE NIL [facility] Cervical/Vaginal (Cervical/Vagina l) 03/06/2011 10:30 AM CDT 03/06/2011 10:29 AM CDT Esther Duran NP PATHOLOGY/CYTOLOGY [facility] INTERNAL ZIP [address] [address] * HEPATITIS C [[id number]] (08/29/2006 9:45 AM BOTTOM SPRAYER) ANTI HCV Non-reactiv e [facility] Blood specimen (specimen) BLOOD SPECIMEN / Unknown 08/29/2006 9:45 AM BOTTOM SPRAYER 08/29/2006 9:30 AM BOTTOM SPRAYER Narrative [facility] - 08/31/2006 1:01 PM BOTTOM SPRAYER Testing Performed By [place], [place] Balbir Beltran DO SEND OUTS [facility] [address] [place] [address] from Last 3 Months or Most Recently Relevant to Health Maintenance Advance Directives * Full Code (Latest Code Status on File) Date Activated Date Inactivated Comments 02/03/2018 7:20 PM 02/05/2018 1:06 PM Question Answer Comments Code Status Discussion: Not Discussed * Full Code Date Activated Date Inactivated Comments 02/01/2018 12:52 PM 02/01/2018 5:24 PM Question Answer Comments Code Status Discussion: Discussed * Full Code Date Activated Date Inactivated Comments 10/09/2014 9:47 PM 10/11/2014 1:52 PM * Full Code Date Activated Date Inactivated Comments 10/09/2014 9:27 PM 10/09/2014 9:47 PM * Full Code Date Activated Date Inactivated Comments 11/25/2006 9:43 AM 11/25/2006 1:27 PM Care Teams Historical Interpreter Relationship Specialty Start Date End Date Carola Deshpande DO [address] [facility] [place] [address] PCP - General Internal Medicine 03/01/23 Bradley Kumar MD Family Practice 10/25/11
[2024-01-31 06:48] LABS: Slide Review Reflex No
[2024-01-31 06:56] LABS: Chloride* 104 mmol/L (96-114); Sodium* 138 mmol/L (135-149)
[2024-01-31 06:59] LABS: Creatinine* 0.6 mg/dL (0.5-1.5); Est. Creatinine Clearance* 88.25; Estimated Glomerular Filt Rate 104 ml/min
[2024-01-31 07:00] LABS: Anion Gap 5 mEq/L (7-15); Blood Urea Nitrogen* 9 mg/dL (7-30); Calcium* 8.5 mg/dL (8.4-10.6); Carbon Dioxide* 29 mmol/L (20-32); Glucose* 120 mg/dL (60-115)
[2024-01-31 07:02] LABS: C Reactive Protein* 1.2 mg/dL (0.5-1.0)
[2024-01-31] MEDS: IPRAT-ALBUT 0.5-2.5 MG/3 ML NEB 1 NEB IH (08:06)
--- NOTE | 2024-01-31 08:30 | CRLHL7_ITS ---
For Patients: As a result of the Century Cures Act, medical imaging exams and procedure reports are released immediately into your electronic medical record. You may view this report before your referring provider. If you have questions, please contact your health care provider. Indication: Constipation Technique: Upright and supine views the abdomen were acquired Comparison: June 22, 2021 Findings: Age-appropriate appearance of the osseous structures. No significant pathologic calcifications. Moderate diffuse fecal retention without evidence of mechanical obstruction Impression: Moderate diffuse fecal retention without evidence of mechanical obstruction. Dictated by Jeffery Gomez MD @ 01/31/2024 9:09:42 AM (Electronically Signed)
[2024-01-31 08:39] LABS: Appearance Urine Clear (Clear); Bilirubin Urine Negative (Negative); Blood Urine Negative (Negative); Color Urine Yellow (Yellow); Glucose Urine Negative (Negative); Ketones Urine Negative (Negative); Leukocyte Esterase Urine Negative (Negative); Nitrite Urine Negative (Negative); Protein Urine Negative (Negative); Specific Gravity Urine 1.025 (1.000-1.030); Urobilinogen Urine 0.2 (0.2-1.0)
[2024-01-31 09:05] LABS: Bacteria Urine Moderate; Mucus Urine Many; RBC Urine 0-2 (0-2); Squamous Epithelial Cell Urine Moderate (None-Few); WBC Urine 0-2 (0-5)
[2024-01-31 10:00] VITALS: BP 158/84; PULSE 88; RESP 20; TEMP 36.2; O2SAT 96
== END 2024-01-31 10:10 | disposition home or self-care (01) ==
PROVIDERS: Emergency Provider Family Medicine; PCP Physician Assistant
DX: R10.9 Unspecified abdominal pain (principal); K59.00 Constipation, unspecified; R11.0 Nausea
CPT/HCPCS: 36415; 74019; 80048; 81001; 85025; 86140; 87086; 94640; 96361; 96374; 96375; 99284; J1885; J2405; J7030

== ENCOUNTER 2024-03-19 18:06 | Emergency (ER) | payer MEDICAID, SELFPAY ==
--- OUTSIDE RECORDS SUMMARY | 2024-03-19 18:10 | XMS_ITS | Clinical Summary ---
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 For heart. 90 tablet 1 7 Active acetaminophen (TYLENOL) 500 mg capsule Take 2 capsules by mouth every 8 hours if needed. Max acetaminophen dose: 4000mg in 24 hrs. 0 Active fluticasone (50 mcg per actuation) nasal solution (FLONASE)Indicati ons:Nasal congestion,Sinus pressure Inhale 1 Wingate in the nostril(s) once daily if needed. 1 Bottle 12 1 Active traZODone (DESYREL) 100 mg tabletIndications :Anxiety Take 1 Tablet (100 mg) by mouth at bedtime. 90 Tablet 3 3 Active cetirizine (ZYRTEC) 10 mg tabletIndications :Nasal congestion,Sinus pressure Take 1 Tablet (10 mg) by mouth once daily. 90 Tablet 3 3 Active ibuprofen (ADVIL; MOTRIN) 800 mg tabletIndications :Nonintractable headache, unspecified chronicity pattern, unspecified headache type Take 1 Tablet (800 mg) by mouth every 6 hours if needed for Pain. 90 Tablet 1 3 Active lisinopriL (PRINIVIL; ZESTRIL) 5 mg tabletIndications :Hypertension,Chr onic congestive heart failure, unspecified heart failure type (HC) Take 1 Tablet (5 mg) by mouth once daily. 90 Tablet 3 3 Active albuterol HFA (PRO-AIR; VENTOLIN; PROVENTIL) 90 mcg/actuation inhalerIndication s:COPD exacerbation (HC),Chronic obstructive pulmonary disease, unspecified COPD type (HC) Inhale 2 Puffs by mouth every 4 hours if needed for Shortness Of Breath or Wheezing. 1 Each 2 3 Active albuterol-ipratro pium (DUONEB) (2.5-0.5 mg) in 3 mL NEBULIZATION solutionIndicatio ns:COPD exacerbation (HC),Chronic obstructive pulmonary disease, unspecified COPD type (HC),Tobacco use disorder Inhale 3 mL via a nebulizer every 6 hours if needed for Shortness Of Breath or Wheezing. 180 mL 3 3 Active albuterol (PROVENTIL) 0.083 % neb solutionIndicatio ns:Subacute cough Inhale 3 mL (2.5 mg) via a nebulizer every 4 hours if needed for Shortness of Breath 1st choice, Cough 2nd choice or Wheezing 2nd choice. 100 mL 4 Active famotidine (PEPCID) 20 mg tabletIndications :Gastroesophageal reflux disease with esophagitis without hemorrhage Take 1 Tablet (20 mg) by mouth two times daily. 180 Tablet 1 4 Active fluticasone propion-salmetero L (ADVAIR) 115-21 mcg/actuation inhalerIndication s:COPD exacerbation (HC) INHALE 2 PUFFS BY MOUTH TWICE DAILY 36 g 4 Active predniSONE (DELTASONE) 20 mg tabletIndications :COPD exacerbation (HC) Take 40 mg qd for 5 days, then 20 mg qd for 3 days, then 10 mg qd for 4 days. 15 Tablet 4 Active venlafaxine (EFFEXOR XR) 150 mg Extended-Release capsuleIndication s:Anxiety,Depress ion, unspecified depression type TAKE ONE CAPSULE BY MOUTH ONCE DAILY WITH A MEAL. TAKE WITH 75 MG CAPSULE FOR A TOTAL DAILY DOSE OF 225 MG. 30 Capsule 4 Active venlafaxine (EFFEXOR XR) 75 mg cp24 Extended-Release capsuleIndication s:Anxiety,Depress ion, unspecified depression type TAKE 1 CAPSULE BY MOUTH EVERY DAY WITH A MEAL TAKE IN COMBINATION WITH 150MG CAPSULE TO EQUAL 225MG EVERY DAY 30 Capsule 4 Active potassium chloride (KLOR-CON M20) 20 mEq extended-release tablet (part/cryst)Indic ations:Hypokalemi a TAKE 1 TABLET(20 MEQ) BY MOUTH TWICE DAILY WITH MEALS 180 Tablet 4 Active potassium chloride (KLOR-CON) 20 mEq extended-release tablet (part/cryst)Indic ations:Hypokalemi a Take 1 Tablet (20 mEq) by mouth two times daily with meals. 180 Tablet 3 3 02/20/20 24 Discontinued Active Problems Problem Noted Date Diagnosed Date History of drug dependence/abuse 09/03/2023 PAD (peripheral artery disease) 09/14/2022 Overview (09/14/2022): Mild bilateral lower extremities Tequila Whyte PA-C, [...] drug abuse 10/09/[address] scan 07/07/2013 Overview (07/07/2013): Impression 1. No sign of pulmonary embolism. [...] 03/07/2012 Hypertension 10/18/2011 Methamphetamine abuse, episodic 11/25/2006 Overview (03/06/2011): Treatment katie colón 09/16 through 11/16 and [...] 02/03/2018 Congestive heart failure, unspecified 12/19/2006 03/06/2011 Overview (12/19/2006): Acute edema of lung, unspecified 11/25/2006 03/06/2011 Transient hypertension of pr egnancy, antepartum 11/25/2006 03/06/2011 Pain in joint, pelvic region and thigh 08/10/2006 08/10/2006 Elderly multigravida with an tepartum condition or complication 08/10/2006 03/06/2011 Encounters Date Type Department Care Team Description 02/18/[address] [address] Carola Deshpande, DO Refill Request (Potassium Chloride, Venlafaxine, Venlafaxine) [address] [phone] Carola Deshpande, DO Refill Request (venlafaxine (EFFEXOR XR) 75 mg cp24 Extended-Release/mayra lafaxine (EFFEXOR XR) 150 mg Extended-Release capsule/) 01/31/2024 Orders Only [facility] Scanner 1 scan: (1-Ord) [facility], XR ABDOMEN MIN 2V, 01/31/2024 01/15/2024 Telephone [facility] [address] [place] [address] Tequila Whyte PA New Med Request (doxycycline monohydrate 100 mg capsule) 01/07/2024 7:50 AM CDT Office Visit [facility] [address] [place] [address] Tequila Whyte PA URI (Started on Sat.-body aches, headache, runny nose, productive cough-no known fever) 01/07/2024 Travel from Last 3 Months Immunizations Name Administration [...] Epidur al Livin g Rakesh Bender Delivery Location:[facility] Comments:INDUCTION for oligohydramnios 7 32w 0d Livin g Delivery Location:[place], [place] Comments:CHF decomp du e to meth [...] 11/08/2022 11/09/19, 12/26/2017, 03/20/2012, Additional history exists BMI (ht and wt on same day) for age 18+ 02/27/2024 02/26/2023, 07/22/2020, 09/15/2019, Additional history exists Depression screening for age 12+ 02/27/2024 02/26/2023, 09/09/2021, 09/08/2021, Additional history exists COVID-19 vaccine series ( season) 2024 Influenza for age 50-64 03/09/2024 07/22/19, 03/08/2017, [...] INTAINS BP LESS THAN 130/80 Blood Pressure Dasha Vora RN Procedures Procedure Name Priority Date/Time Associated Diagnosis Comments SCAN-RADIOLOGY REPORT 01/31/2024 12:00 AM CDT LC HIV-1/O/2, 4TH GENERATION Routine 02/26/2023 12:47 PM CDT Screening for HIV (human immunodeficiency virus) LIPID PANEL W REFLEX MEASURED LDL Routine 02/26/2023 12:47 PM CDT Hypertension Hyperlipidemia, unspecified hyperlipidemia type XR MAMMO BILAT SCREENING Routine 11/08/2021 11:17 AM CDT Visit for screening mammogram COLONOSCOPY 02/01/2018 1:28 PM CDT MEDICAL STAFF SPECIALIST THIN PREP PAP SCREEN IMAGED Routine 03/06/2011 10:30 AM CDT Screening for malignant neoplasm of the cervix ANTI HCV Routine 08/29/2006 9:45 AM DEBONE SUPERVISOR Supervision Of Other Normal from Last 3 Months or Most Recently Relevant to Health Maintenance Results * SCAN-RADIOLOGY REPORT (01/31/2024 12:00 AM CDT) Anatomical Region Laterality Modality Other Scanner OTHER * LC HIV-1/O/2, 4TH GENERATION (02/26/2023 12:47 PM CDT) HIV Scr 4th Gen Non Reactive Non Reactive 02/28/2023 2:08 PM CDT [facility] Comment: HIV Negative HIV-1/HIV-2 antibodies and HIV-1 p24 antigen were NOT detected. There is no laboratory evidence of HIV infection. Blood BLOOD SPECIMEN / Unknown Venipuncture / Unknown 02/26/2023 12:47 PM CDT 02/26/2023 12:50 PM CDT Narrative [facility] ([facility] - 02/28/2023 2:08 PM CDT Performed at: ??[address] ??[id number] Warper Fixer: Gurdeep Mac MD, Phone: ??[phone] Carola Deshpande DO LABORATORY [facility] ([facility]) [address] [place] [address] * (ABNORMAL) LIPID PANEL W REFLEX MEASURED LDL (02/26/2023 12:47 PM CDT) CHOLESTEROL,TOTAL 185 100 - 199 mg/dL 02/26/2023 1:30 PM CDT [facility] TRIGLYCERIDES 261(H) <150 mg/dL 02/26/2023 1:30 PM CDT [facility] HDL CHOLESTEROL 44 >40 mg/dL 1:30 PM CDT [facility] NON-HDL CHOLESTEROL 141 <145 mg/dl 02/26/2023 1:30 PM CDT [facility] CHOL/HDL RATIO 4.20 <4.50 02/26/2023 1:30 PM CDT [facility] LDL CHOLESTEROL 89 <=130 mg/dL 02/26/2023 1:30 PM CDT [facility] VLDL CHOLESTEROL 52(H) <=30 mg/dL 02/26/2023 1:30 PM CDT [facility] PROVIDER ORDERED STATUS RANDOM 02/26/2023 1:30 PM CDT [facility] Blood BLOOD SPECIMEN / Unknown Venipuncture / Unknown 02/26/2023 12:47 PM CDT 02/26/2023 12:50 PM CDT Carola Deshpande DO CHEMISTRY [facility] [address] [place] [address] * XR MAMMO BILAT SCREENING (11/08/2021 11:17 [...] For Patients: As a result of the Century Cures Act, medical imaging exams and procedure reports are released immediately into your electronic medical record. You may view this report before your referring provider. If you have questions, please contact your health care provider. XR MAMMO BILAT SCREENING [[id number]] CLINICAL HISTORY: ??This is an asymptomatic 56 y.o. patient. INDICATION FOR EXAM: Mammogram Screening. TECHNIQUE: CC & MLO views were obtained. ??This study was evaluated with the assistance of Computer-Aided Detection. COMPARISON FILMS: Yes 12/26/17 Obviousidea ?? FINDINGS: ??The breasts have scattered areas [...] PM Naveen Rubin DO PROCEDURE ORD * MEDICAL STAFF SPECIALIST THIN PREP PAP SCREEN IMAGED (03/06/2011 10:30 AM CDT) CYTOLOGY CYTOPATHOLOGY REPORT [facility] Status: Final Status ?[id number] CLINICAL INFORMATION Last Date of LMP ? :Premenarcheal Last Pap Date ?:02-09-11 Last Pap Result ?:NIL ABN [place]/Bx Past 5 YRS :None Hormone Usage ?:BCP/OCP/Patch/R ing Menstrual Status ? :Regular Periods [place]/Bx done today ? :No Additional Information :None given HPV Request ?:HPV if ASCUS SPECIMEN SOURCE ?:Cervical/vagina l ThinPrep Vial, screening SPECIMEN ADEQUACY ?:Satisfactory for evaluation Endocervical component ? present. INTERPRETATION/RES ULT Negative for intraepithelial lesion or malignancy (NIL) Cytology 1st Screener ??:shari Signed by ?:shari This specimen was screened [...] COLLECTED:03/06/11 ? ACCESSIONED: ??03/07/11 ?? SIGNED: ??03/09/11 [facility] PAP [place] CODE NIL [facility] Cervical/Vaginal (Cervical/Vagina l) 03/06/2011 10:30 AM CDT 03/06/2011 10:29 AM CDT Esther Duran NP PATHOLOGY/CYTOLOGY [facility] INTERNAL ZIP [address] [address] * HEPATITIS C [12581.2] (08/29/2006 9:45 AM DEBONE SUPERVISOR) ANTI HCV Non-reactiv e [facility] Blood specimen (specimen) BLOOD SPECIMEN / Unknown 08/29/2006 9:45 AM DEBONE SUPERVISOR 08/29/2006 9:30 AM DEBONE SUPERVISOR Narrative [facility] - 08/31/2006 1:01 PM DEBONE SUPERVISOR Testing Performed By [place], [place] Balbir Beltran DO SEND OUTS [facility] [address] [place] [address] from Last 3 Months or Most Recently [...] 9:43 AM 11/25/2006 1:27 PM Care Teams Food Truck Caterer Relationship Specialty Start Date End Date Carola Deshpande DO [address] [place] [id number] PCP - General Internal Medicine 03/01/23 Bradley Kumar MD Family Practice 10/25/11
[2024-03-19 18:19] VITALS: BP 179/78; PULSE 96; RESP 20; TEMP 37.1; O2SAT 96; BMI 27.5
--- NOTE | 2024-03-19 18:33 | ED.GENADULT ---
HPI - General Adult General Time Seen by Provider: 18:33 Date Seen: 03/19/24 Chief complaint: Sore Throat Stated complaint: Sore throat, swollen, diff breathing, temp Time Seen by Provider: 03/19/24 18:30 Source: patient and RN notes reviewed Mode of arrival: ambulatory Limitations: no limitations History of Present Illness HPI narrative: This 59-year-old female is coming in with complaint of severe sore throat, she has her eyes closed, have to redirect her to get the history. She is calm down, then I am able to get more of a history from her. She initially just kept talking about her throat hurting, needing to figure out what was wrong. She started with a sore throat yesterday morning, it is gotten severe on the left side. She has not taken her temperature but she has felt hot and cold and had sweats overnight. It is hurting to swallow, hurts into her left ear on the left side. She denies any cough with this. She has no other associated symptoms, just the pain in the fevers. She states the pain is starting to cause headache, she thinks she might be going into a migraine because of the pain. She does report that she has had migraines. Her past medical history looks to be significant for COPD, tobacco use come history of pneumonia. She has had a history of migraine headaches, GERD, hypertension, congestive heart failure, personality disorder, depression chronic neck and back pain, hyperlipidemia, sigmoid diverticulitis, iron deficiency anemia, anxiety, cardiomegaly, history of drug use. She has had a prior section, had a breast biopsy for breast mass. Related Data Home Medications ?Medication ?Instructions ?Recorded ?Confirmed cetirizine 10 mg tablet 10 mg PO DAILY 02/12/22 03/19/24 famotidine 20 mg tablet 20 mg PO DAILY 02/12/22 03/19/24 fluticasone propionate 115 2 puff inhalation DAILY 02/12/22 03/19/24 mcg-salmeterol 21 mcg/actuation HFA inhaler (Advair HFA) lisinopril 5 mg tablet 5 mg PO DAILY 02/12/22 03/19/24 potassium chloride 20 mEq 20 meq PO BID 02/12/22 03/19/24 tablet,extended release(part/cryst) tiotropium bromide 18 mcg capsule 1 cap inhalation DAILY 02/12/22 03/19/24 with inhalation device (Spiriva with HandiHaler) venlafaxine 150 mg 150 mg PO DAILY 02/12/22 03/19/24 capsule,extended release 24 hr venlafaxine 75 mg capsule,extended 75 mg PO DAILY 02/12/22 03/19/24 release 24 hr Previous Rx's ?Medication ?Instructions ?Recorded albuterol sulfate 90 mcg/actuation 2 puff inhalation Q4-6H PRN 08/15/22 aerosol inhaler (ProAir HFA) shortness of breath or wheezing #8.5 grams polyethylene glycol 3350 17 17 g PO .daily-tid PRN #238 grams 01/31/24 gram/dose oral powder (Miralax) Allergies Allergy/AdvReac Type Severity Reaction Status Date / Time No Known Drug Allergies Allergy Verified 03/19/24 19:18 Review of Systems Status of ROS: Reports: 6 or more systems reviewed and unremarkable except as noted in History and below [facility] Medical History Sigmoid diverticulitis ?K57.32 - Diverticulitis of large intestine without perforation or abscess without bleeding (ICD-10) Left breast mass ?N63.20 - Unspecified lump in the left breast, unspecified quadrant (ICD-10) Iron deficiency anemia ?D50.9 - Iron deficiency anemia, unspecified (ICD-10) Tobacco use disorder ?F17.200 - Nicotine dependence, unspecified, uncomplicated (ICD-10) Anxiety ?F41.9 - Anxiety disorder, unspecified (ICD-10) Cardiomegaly ?I51.7 - Cardiomegaly (ICD-10) Migraine ?G43.909 - Migraine, unspecified, not intractable, without status migrainosus (ICD-10) GERD (gastroesophageal reflux disease) ?K21.9 - Gastro-esophageal reflux disease without esophagitis (ICD-10) Hypertension ?I10 - Essential (primary) hypertension (ICD-10) Vitamin A deficiency ?E50.9 - Vitamin A deficiency, unspecified (ICD-10) H/O drug abuse ?F19.11 - Other psychoactive substance abuse, in remission (ICD-10) CHF (congestive heart failure) ?I50.9 - Heart failure, unspecified (ICD-10) Personality disorder ?F60.9 - Personality disorder, unspecified (ICD-10) Depression ?F32.A - Depression, unspecified (ICD-10) COPD (chronic obstructive pulmonary disease) ?J44.9 - Chronic obstructive pulmonary disease, unspecified (ICD-10) Chronic neck pain ?M54.2 - Cervicalgia (ICD-10) ?G89.29 - Other chronic pain (ICD-10) Chronic lower back pain ?M54.50 - Low back pain, unspecified (ICD-10) ?G89.29 - Other chronic pain (ICD-10) Hypokalemia ?E87.6 - Hypokalemia (ICD-10) Hyperlipemia ?E78.5 - Hyperlipidemia, unspecified (ICD-10) Surgical History History of colonoscopy ?Z98.890 - Other specified postprocedural states (ICD-10) History of section ?Z98.891 - History of uterine scar from previous surgery (ICD-10) History of breast biopsy ?Z98.890 - Other specified postprocedural states (ICD-10) No significant past surgical history Family History Father Heart disease FH: mental illness Mother High blood pressure Sister FH: mental illness Social History Narrative: She lives in [place] with her boyfriend Jordan who she designates healthcare power of assistant county attorney. Her code status is full. 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 She has 2 sons, 1 living at home. She does smoke cigarettes. She does not drink alcohol Highest level of school completed/degree received: high school graduate Smoking Status: Current every day smoker What tobacco products do you use: cigarettes Smoking packs per day: 1 Smoking cigarettes per day: 20.0 How often do you have a drink containing alcohol: never AUDIT-C Alcohol total score: 0 Non-prescribed substance use: denies use Caffeine: Yes service: No Exam Const: Vital Signs, click to edit/add: Vital Signs - 24 hr 03/19/24 18:19 03/19/24 18:39 Temperature 98.7 F Pulse Rate [Pulse Oximeter] 96 Respiratory Rate 20 [facility] 179/78 H Pulse Oximetry 96 99 Oxygen Delivery Me thod Room Air This 59-year-old female is alert, initially keeping her eyes close but is able to talk, voice sounds a little hoarse. She is able speak in complete sentences. Is able to swallow her saliva but seems like it is quite painful for her when she does do so. She complains of pain when opening her mouth in the left jaw but can do so. She has some mild erythema but note no significant enlargement of the left pharyngeal sidewall, no exudates noted. Oral mucosa is well hydrated. Neck is supple, complains of pain on the left side of her neck without any notable masses. No adenopathy. Lungs with distant breath sounds but no wheezing or crackles. CV regular rate and rhythm, no murmur. Abdomen is soft, nontender. Documenting provider has reviewed patient's vital signs: yes Course Course ED Course: This 59-year-old female is coming in with complaint of sore throat with severe left-sided sore throat, dysphagia on the left. We need to do CT imaging of her neck, soft tissue with IV contrast to rule out abscess. Will also check for COVID and strep. Will do basic blood work. She will have an IV placed as we need this for the IV contrast. Will initiate IV fluids, 4 mg IV Zofran and 25 mcg of fentanyl. She will be monitored on pulse oximetry. If she were to have an abscess, I know that ENT prefers that we not use IV Toradol. Reevaluation(s) Time of Reevaluation #1: 20:10 Reevaluation #1: Did initiate IV Unasyn 3 g for patient after her white blood count came back elevated, strep was negative and her triple viral swab was negative. She states the fentanyl really did not help. IA did state that given there was no abscess on her CT that we would go with some Toradol. She stated that's it? She has not gotten her IV antibiotics yet either, will make sure these get initiated. She actually has bilateral tonsillitis, most certainly bacterial but negative for strep. She states she is so hungry and thirsty, she will try a popsicle and some ice chips. Will send her home with a 10 day course of Augmentin 875mg and 4 tablets of 5 mg oxycodone from [email or web address]. Vital Signs Vital signs: Initial Vital Signs Temperature 98.7 F 03/19/24 18:19 Temperature Source Temporal Artery Scan 03/19/24 18:19 Pulse Rate 96 03/19/24 18:19 Respiratory Rate 03/19/24 18:19 Blood Pressure 179/78 H 03/19/24 18:19 Blood Pressure Mean 111 H 03/19/24 18:19 Blood Pressure Position Sitting 03/19/24 18:19 Pulse Oximetry 96 03/19/24 18:19 Oxygen Delivery Method Room Air 03/19/24 18:19 Vital Signs Temperature 98.7 F 03/19/24 18:19 Pulse Rate 96 03/19/24 18:19 Respiratory Rate 20 03/19/24 18:19 Blood Pressure 179/78 H 03/19/24 18:19 Pulse Oximetry 96 03/19/24 18:19 Oxygen Delivery Method Room Air 03/19/24 18:19 Temperature 98.7 F 03/19/24 18:19 Pulse Rate 96 03/19/24 18:19 Respiratory Rate 03/19/24 18:19 Blood Pressure 179/78 H 03/19/24 18:19 Pulse Oximetry 99 03/19/24 18:39 Oxygen Delivery Method Room Air 03/19/24 18:19 Medications Administered Medications: Discontinued Medications Generic Name Dose Route Start Last Admin Trade Name Freq PRN Reason Stop Dose Admin Fentanyl 25 mcg 03/19/24 18:39 03/19/24 19:12 Fentanyl 100 Mcg/2 Ml Inj IVP 03/19/24 18:40 25 mcg ONCE ONE Administration Sodium Chloride 1,000 mls @ 500 mls/hr 03/19/24 18:41 03/19/24 21:05 0.9 % Sodium Chloride 1000 Ml IV 03/19/24 20:40 Infused .Q2H CAMILO Infusion Ampicillin Sodium/Sulbactam 100 mls @ 200 mls/hr 03/19/24 19:48 03/19/24 21:05 Sodium 3 gm/ Sodium Chloride IVPB 03/19/24 19:49 Infused ONCE ONE Infusion Ketorolac Tromethamine 15 mg 03/19/24 21:03 03/19/24 21:15 Ketorolac 15 Mg/Ml Inj IVP 03/19/24 21:04 15 mg ONCE ONE Administration Ondansetron HCl 4 mg 03/19/24 18:39 03/19/24 19:12 Ondansetron 2 Mg/Ml Inj IVP 03/19/24 18:40 4 mg ONCE ONE Administration Medical Decision Making Lab Data Lab results reviewed: Yes I reviewed the patient's lab results Labs: Lab Results 03/19/24 03/19/24 Range/Units 18:48 18:54 WBC 14.84 H (4.50-11.00) K/uL RBC 4.09 (4.00-5.20) m/uL Hgb 9.7 L (12.0-16.0) gm/dL Hct 34.7 (33.0-51.0) % MCV 85 (80-100) fL MCH 24 L (26-34) pg MCHC 28 L (32-36) gm/dL RDW Coeff of Dolores 18.1 H (11.5-15.5) % Plt Count 348 (140-440) K/uL Neut % (Auto) 75.8 H (42.0-72.0) % Lymph % (Auto) 12.3 L (20-44) % Pendleton % (Auto) 9.0 (0.0-11.0) % Eos % (Auto) 2.3 (0.0-7.0) % Baso % (Auto) 0.3 (0.0-3.0) % Neut # (Auto) 11.20 H (1.7-7.0) K/uL Lymph # (Auto) 1.80 (0.90-2.90) K/uL [place] # (Auto) 1.30 H (0.00-0.90) K/UL Eos # (Auto) 0.30 (0.00-0.50) K/uL Baso # (Auto) 0.00 (0.00-0.30) K/uL Abs Immat Gran (auto) 0.00 (0.00-0.30) K/uL Imm/Tot Granulo (auto) 0.3 % ESR 30 H (2-20) mm/hr Sodium 136 (135-149) mmol/L Potassium 4.2 (3.6-5.1) mmol/L Chloride 102 (96-114) mmol/L Carbon Dioxide 27 (20-32) mmol/L Anion Gap 7 (7-15) mEq/L BUN 10 (7-30) mg/dL Creatinine 0.5 (0.5-1.5) mg/dL Estimated Creat Clear 104.61 Estimated GFR 108 ml/min Glucose 156 H (60-115) mg/dL Lactate 1.4 (0.5-1.9) mmol/L Calcium 9.1 (8.4-10.6) mg/dL Total Bilirubin 0.3 (0.1-1.5) mg/dL AST 29 (12-35) U/L ALT 23 (4-35) U/L Alkaline Phosphatase 99 (40-150) U/L C-Reactive Protein 1.6 H (0.5-1.0) mg/dL Total Protein 7.5 (6.0-8.3) g/dL Albumin 4.4 (3.3-5.0) g/dL SARS-CoV-2 (PCR) Negative SARS-CoV-2 (Negative) Influenza Type A (PCR) Negative PCR FLU A (Negative) Influenza Type B (PCR) Negative PCR FLU B (Negative) RSV (PCR) Negative PCR RSV (Negative) Group A Strep DNA NOT DETECTED (Not Detectd) Imaging Data CT- Other: Attestation: I have reviewed the pertinent imaging results. Radiologist's impression: Patient: STUART TINOCO Facility:?[facility] Patient ID:?[id number] Site Patient ID:?[id number]. Site :?[id number] Study:?CT-ST Neck W/ 79CC ISOVUE 370-03/19/2024 7:32:29 PM Ordering Physician:?Ana Arredondo Final Report: INDICATION: Sore throat. TECHNIQUE: CT of the neck soft tissues performed with IV contrast. Contrast: 79 cc Isovue 370. COMPARISON: None available at this institution. FINDINGS: There is enlargement, with heterogeneous enhancement of the palatine tonsils. Inflammatory changes extending into the left greater than right parapharyngeal space. No discernible, drainable fluid collection identified. The parotid and submandibular glands appear unremarkable. The thyroid gland is normal. Prominent cervical chain lymph nodes. The visualized major vascular structures appear intact. The visualized intracranial components appear grossly intact. Visualized orbits and contents appear unremarkable. Complete opacification of the right maxillary sinus. Lung apices are clear. Mild spondylosis of the cervical spine. IMPRESSION: 1. Bilateral palatine tonsillitis, with inflammatory changes extending into the parapharyngeal space. 2. No drainable abscess identified. 3. Prominent cervical chain lymph nodes, favored to be reactive. Please note that all CT scans at this facility use dose modulation, iterative reconstruction, and/or weight-based dosing when appropriate to reduce radiation dose to as low as reasonably achievable. Dictated by Jean-Paul Cardoza MD @ 03/19/2024 8:08:36 PM (Electronic Signature) Discharge Plan Discharge Clinical Impression: Acute tonsillitis Patient Disposition: Home, Self-Care Condition: Stable Instructions: Tonsillitis (ED) Additional Instructions: Start oral antibiotics in the morning. Your throat should slowly start to feel better. If it continues to worsen despite the antibiotics, if is not improving so that you can drink and eat better, if you have further concerns or feel you are worsening, please return for further evaluation. Otherwise Tylenol 1000 mg baseline for pain management. Can supplement with ibuprofen per bottle directions as needed for secondary pain control. I have given a prescription for Augmentin and oxycodone from [email or web address]. Please follow prescription instructions. Do want you to schedule a follow-up in clinic with your primary care provider, review that your hemoglobin was 9.7, need to review your ongoing anemia. Activity Level: Activity as Tolerated Prescriptions: No Action polyethylene glycol 3350 [Miralax] 17 gram/dose powder 17 g PO .daily-tid PRNQty: 238 1RF potassium chloride 20 mEq tablet,ER particles/crystals 20 meq PO BID lisinopril 5 mg tablet 5 mg PO DAILY venlafaxine 150 mg capsule,extended release 24hr 150 mg PO DAILY Patient Comments: TAKE ONE CAPSULE BY MOUTH ONCE DAILY WITH A MEAL. TAKE WITH 75 MG CAPSULE FOR A TOTAL DAILY DOSE OF 225 MG. venlafaxine 75 mg capsule,extended release 24hr 75 mg PO DAILY tiotropium bromide [Spiriva with HandiHaler] 18 mcg capsule, w/inhalation device 1 cap INHALATION DAILY fluticasone propion-salmeterol [Advair HFA] 115-21 mcg/actuation HFA aerosol inhaler 2 puff INHALATION DAILY Patient Comments: INHALE 2 PUFFS BY MOUTH TWICE DAILY cetirizine 10 mg tablet 10 mg PO DAILY famotidine 20 mg tablet 20 mg PO DAILY albuterol sulfate [ProAir HFA] 90 mcg/actuation HFA aerosol inhaler 2 puff inhalation Q4-6H PRN (Reason: shortness of breath or wheezing) Qty: 8.5 0RF Follow Up/Referrals: Tequila Whyte PA-C [Primary Care Provider] - Stand Alone Forms: [employer] Info Instructions
[2024-03-19 18:39] VITALS: O2SAT 99
--- NOTE | 2024-03-19 18:39 | CRLHL7_ITS ---
For Patients: As a result of the Century Cures Act, medical imaging exams and procedure reports are released immediately into your electronic medical record. You may view this report before your referring provider. If you have questions, please contact your health care provider. INDICATION: Sore throat. TECHNIQUE: CT of the neck soft tissues performed with IV contrast. Contrast: 79 cc Isovue 370. COMPARISON: None available at this institution. FINDINGS: There is enlargement, with heterogeneous enhancement of the palatine tonsils. Inflammatory changes extending into the left greater than right parapharyngeal space. No discernible, drainable fluid collection identified. The parotid and submandibular glands appear unremarkable. The thyroid gland is normal. Prominent cervical chain lymph nodes. The visualized major vascular structures appear intact. The visualized intracranial components appear grossly intact. Visualized orbits and contents appear unremarkable. Complete opacification of the right maxillary sinus. Lung apices are clear. Mild spondylosis of the cervical spine. IMPRESSION: 1. Bilateral palatine tonsillitis, with inflammatory changes extending into the parapharyngeal space. 2. No drainable abscess identified. 3. Prominent cervical chain lymph nodes, favored to be reactive. Please note that all CT scans at this facility use dose modulation, iterative reconstruction, and/or weight-based dosing when appropriate to reduce radiation dose to as low as reasonably achievable. Dictated by Jean-Paul Cardoza MD @ 03/19/2024 8:08:36 PM (Electronically Signed)
[2024-03-19 18:59] LABS: Lactate* 1.4 mmol/L (0.5-1.9)
[2024-03-19 19:01] LABS: Basophils Percent Auto 0.3 % (0.0-3.0); Eosinophils Percent Auto 2.3 % (0.0-7.0); Hematocrit 34.7 % (33.0-51.0); Hemoglobin* 9.7 gm/dL (12.0-16.0); Immature Granulocytes Pct Auto 0.3 %; Lymphocytes Percent Auto 12.3 % (20-44); Mean Corpuscular HGB Conc 28 gm/dL (32-36); Mean Corpuscular Hemoglobin 24 pg (26-34); Mean Corpuscular Volume 85 fL (80-100); Neutrophils Percent Auto 75.8 % (42.0-72.0); Platelet Count* 348 K/uL (140-440); RDW Coefficient of Variation % 18.1 % (11.5-15.5); Red Blood Count 4.09 m/uL (4.00-5.20); White Blood Count* 14.84 K/uL (4.50-11.00)
[2024-03-19 19:05] LABS: Slide Review Reflex No
--- OUTSIDE RECORDS SUMMARY | 2024-03-19 19:05 | XMS_ITS | Clinical Summary ---
Author Organization [facility] Address [place], [place] [address] Care Team Providers Care Surgical Processor Name Role Phone Bradley Kumar MD Unavailable Un available Carola Deshpande DO Primary Care Provider [phone] Allergies No known active allergies Medications Medication [...] solution (FLONASE)Indicati ons:Nasal congestion,Sinus pressure Inhale 1 Shubuta in the nostril(s) once daily if needed. [...] Type Department Care Team Description 02/18/[address] [address] Carola Deshpande, DO Refill Request (Potassium Chloride, Venlafaxine, Venlafaxine) [address] [address] Carola Deshpande, DO Refill Request (venlafaxine (EFFEXOR XR) 75 mg cp24 Extended-Release/mayra lafaxine (EFFEXOR XR) 150 mg Extended-Release capsule/) 01/31/2024 Orders Only [facility] Scanner 1 scan: (1-Ord) [facility], XR ABDOMEN MIN 2V, 01/31/2024 01/15/2024 Telephone [facility] [address] [place] [address] Tequila Whyte PA New Med Request (doxycycline monohydrate 100 mg capsule) 01/07/2024 7:50 AM CDT Office Visit [facility] [address] [place] [address] Tequila Whyte PA URI (Started on Sat.-body [...] Epidur al Livin g Rakesh Bender Delivery Location:[facility] Comments:INDUCTION for oligohydramnios 7 32w 0d Livin g Delivery Location:[place], [place] Comments:CHF decomp du e to meth [...] screening mammogram COLONOSCOPY 02/01/2018 1:28 PM CDT INTERACTIVE PRODUCER THIN PREP PAP SCREEN IMAGED Routine 03/06/2011 10:30 AM CDT Screening for malignant neoplasm of the cervix ANTI HCV Routine 08/29/2006 9:45 AM PATIENT PLACEMENT COORDINATOR Supervision Of Other Normal from Last 3 Months or Most Recently Relevant to Health Maintenance Results * SCAN-RADIOLOGY REPORT (01/31/2024 12:00 AM CDT) Anatomical Region Laterality Modality Other Scanner OTHER * LC HIV-1/O/2, 4TH GENERATION (02/26/2023 12:47 PM CDT) HIV Scr 4th Gen Non Reactive Non Reactive 02/28/2023 2:08 PM CDT [facility] Comment: HIV Negative HIV-1/HIV-2 antibodies and HIV-1 p24 antigen were NOT detected. There is no laboratory evidence of HIV infection. Blood BLOOD SPECIMEN / Unknown Venipuncture / Unknown 02/26/2023 12:47 PM CDT 02/26/2023 12:50 PM CDT Narrative [facility] - 02/28/2023 2:08 PM CDT Performed at: ??[address] ??[id number] Electric Detector Operator: Gurdeep Mac MD, Phone: ??[phone] Carola Deshpande DO LABORATORY [facility]) [address] [place] [address] * (ABNORMAL) LIPID PANEL W REFLEX MEASURED LDL (02/26/2023 12:47 PM CDT) CHOLESTEROL,TOTAL 185 100 - 199 mg/dL 02/26/2023 1:30 PM CDT [facility] TRIGLYCERIDES 261(H) <150 mg/dL 02/26/2023 1:30 PM CDT [facility] HDL CHOLESTEROL 44 >40 mg/dL 1:30 PM CDT [facility] NON-HDL CHOLESTEROL 141 <145 mg/dl 02/26/2023 1:30 PM CDT [facility] CHOL/HDL RATIO 4.20 <4.50 02/26/2023 1:30 PM CDT [facility] LDL CHOLESTEROL 89 <=130 mg/dL 02/26/2023 1:30 PM CDT [facility] VLDL CHOLESTEROL 52(H) <=30 mg/dL 02/26/2023 1:30 PM CDT [facility] PROVIDER ORDERED STATUS RANDOM 02/26/2023 1:30 PM CDT [facility] Blood BLOOD SPECIMEN / Unknown Venipuncture / Unknown 02/26/2023 12:47 PM CDT 02/26/2023 12:50 PM CDT Carola Deshpande DO CHEMISTRY [facility] [address] [place] [address] * XR MAMMO BILAT SCREENING (11/08/2021 11:17 [...] health care provider. XR MAMMO BILAT SCREENING [[id number]] CLINICAL HISTORY: ??This is an asymptomatic 56 y.o. patient. INDICATION FOR EXAM: Mammogram Screening. TECHNIQUE: CC & MLO views were obtained. ??This study was evaluated with the assistance of Computer-Aided Detection. COMPARISON FILMS: Yes 12/26/17 [employer] ?? FINDINGS: ??The breasts have scattered areas [...] PM Naveen Rubin DO PROCEDURE ORD * INTERACTIVE PRODUCER THIN PREP PAP SCREEN IMAGED (03/06/2011 10:30 AM CDT) CYTOLOGY CYTOPATHOLOGY REPORT [facility] Status: Final Status ?[id number] CLINICAL INFORMATION Last Date of LMP ? :Premenarcheal Last Pap Date ?:02-09-11 Last Pap Result ?:NIL ABN [place]/Bx Past 5 YRS :None Hormone Usage ?:BCP/OCP/Patch/R ing Menstrual Status ? :Regular Periods [place]/Bx done today ? :No Additional Information :None [...] COLLECTED:03/06/11 ? ACCESSIONED: ??03/07/11 ?? SIGNED: ??03/09/11 [facility] PAP [place] CODE NIL [facility] Cervical/Vaginal (Cervical/Vagina l) 03/06/2011 10:30 AM CDT 03/06/2011 10:29 AM CDT Esther Duran NP PATHOLOGY/CYTOLOGY [facility] INTERNAL ZIP [id number] [address] * HEPATITIS C [75605.2] (08/29/2006 9:45 AM PATIENT PLACEMENT COORDINATOR) ANTI HCV Non-reactiv e [facility] Blood specimen (specimen) BLOOD SPECIMEN / Unknown 08/29/2006 9:45 AM PATIENT PLACEMENT COORDINATOR 08/29/2006 9:30 AM PATIENT PLACEMENT COORDINATOR Narrative [facility] - 08/31/2006 1:01 PM PATIENT PLACEMENT COORDINATOR Testing Performed By [place], [place] Balbir Beltran DO SEND OUTS [facility] [address] [place] [address] from Last 3 Months or Most Recently [...] 9:43 AM 11/25/2006 1:27 PM Care Teams Surgical Processor Relationship Specialty Start Date End Date Carola Deshpande DO [address] [place] [id number] PCP - General Internal Medicine 03/01/23 Bradley Kumar MD Family Practice 10/25/11
[2024-03-19] MEDS: ONDANSETRON 2 MG/ML inj 4 MG IVP (19:12)
[2024-03-19] MEDS: fentaNYL 100 MCG/2 ML inj 25 MCG IVP (19:12)
[2024-03-19 19:25] LABS: Chloride* 102 mmol/L (96-114)
[2024-03-19 19:26] LABS: Albumin* 4.4 g/dL (3.3-5.0); Potassium* 4.2 mmol/L (3.6-5.1); Sodium* 136 mmol/L (135-149)
[2024-03-19 19:28] LABS: Creatinine* 0.5 mg/dL (0.5-1.5); Est. Creatinine Clearance* 104.61; Estimated Glomerular Filt Rate 108 ml/min
[2024-03-19 19:29] LABS: Alanine Aminotransferase* 23 U/L (4-35); Alkaline Phosphatase* 99 U/L (40-150); Anion Gap 7 mEq/L (7-15); Aspartate Amino Transferase* 29 U/L (12-35); Bilirubin Total* 0.3 mg/dL (0.1-1.5); Blood Urea Nitrogen* 10 mg/dL (7-30); Carbon Dioxide* 27 mmol/L (20-32); Glucose* 156 mg/dL (60-115); Total Protein* 7.5 g/dL (6.0-8.3)
[2024-03-19 19:30] LABS: Calcium* 9.1 mg/dL (8.4-10.6)
[2024-03-19 19:32] LABS: C Reactive Protein* 1.6 mg/dL (0.5-1.0)
[2024-03-19 19:32] LABS: Strep A DNA Probe* NOT DETECTED (Not Detectd)
[2024-03-19 19:44] LABS: PCR FLU A Negative PCR FLU A (Negative); PCR FLU B Negative PCR FLU B (Negative); PCR RSV Negative PCR RSV (Negative); SARS PCR* Negative SARS-CoV-2 (Negative)
[2024-03-19] MEDS: 0.9 % SODIUM CHLORIDE 1000 ml 1,000 ML 500 ML IV (20:00)
[2024-03-19] MEDS: AMPICILLIN/SULBACTAM 3 GM in 0.9 % SODIUM CHLORIDE Mini-bag 100 ML IVPB (20:24)
[2024-03-19 20:31] LABS: Erythrocyte SedimentationRate* 30 mm/hr (2-20)
[2024-03-19] MEDS: KETOROLAC 15 MG/ML inj IVP (21:15)
== END 2024-03-19 21:29 | disposition home or self-care (01) ==
PROVIDERS: Emergency Provider Family Medicine; PCP Physician Assistant
DX: J03.90 Acute tonsillitis, unspecified (principal)
CPT/HCPCS: 36415; 70491; 80053; 83605; 85025; 85651; 86140; 87631; 87651; 94761; 96374; 96375; 99284; J0295; J1885; J2405; J3010; J7030; Q9967

== ENCOUNTER 2024-04-27 14:15 | Emergency (ER) | payer MEDICAID, SELFPAY ==
[2024-04-27 14:20] VITALS: BP 160/77; PULSE 110; RESP 24; TEMP 36.7; O2SAT 94; BMI 30.9
[2024-04-27 14:30] VITALS: O2SAT 95
--- NOTE | 2024-04-27 14:35 | CRLHL7_ITS ---
For Patients: As a result of the Cures Act, medical imaging exams and procedure reports are released immediately into your electronic medical record. You may view this report before your referring provider. If you have questions, please contact your health care provider. INDICATION: Fevers, chills, cough. TECHNIQUE: Chest 2 view(s) COMPARISON: Chest radiograph dated 10/29/2022. FINDINGS: Heart size is upper limits of normal. Pulmonary vasculature is normal. Prominence of the central interstitial lung markings, nonspecific, can be seen with viral process versus mild pulmonary edema. No layering pleural effusion. No pneumothorax. Multilevel degenerative changes of the visualized spine. IMPRESSION: Prominence of the central interstitial lung markings, nonspecific, can be seen with viral process versus mild pulmonary edema. Dictated by Mateo Coon MD @ 04/27/2024 3:53:31 PM (Electronically Signed)
--- OUTSIDE RECORDS SUMMARY | 2024-04-27 14:44 | XMS_ITS | Clinical Summary ---
Author Organization [facility] Address [place], [place] [address] Care Team Providers Care Color Grinder Name Role Phone Bradley Kumar MD Unavailable Un available Carola Deshpande DO Primary Care Provider [phone] Allergies No known active allergies Medications Medication [...] solution (FLONASE)Indicati ons:Nasal congestion,Sinus pressure Inhale 1 [place] in the nostril(s) once daily if needed. [...] for 4 days. 15 Tablet 4 Active potassium chloride (KLOR-CON M20) 20 mEq extended-release tablet (part/cryst)Indic ations:Hypokalemi a TAKE 1 TABLET(20 MEQ) BY MOUTH TWICE DAILY WITH MEALS 180 Tablet 4 Active venlafaxine (EFFEXOR XR) 150 mg Extended-Release capsuleIndication s:Anxiety,Depress ion, unspecified depression type TAKE 1 CAPSULE BY MOUTH WITH A MEAL. TAKE WITH 75MG CAPSULE FOR A TOTAL OF 225MG EVERY DAY 90 Capsule 4 Active venlafaxine (EFFEXOR XR) 75 mg cp24 Extended-Release capsuleIndication s:Anxiety,Depress ion, unspecified depression type TAKE 1 CAPSULE BY MOUTH EVERY DAY WITH A MEAL TAKE WITH 150MG CAPSULE FOR TOTAL DOSE OF 225MG 90 Capsule 4 Active venlafaxine (EFFEXOR XR) 150 mg Extended-Release capsuleIndication s:Anxiety,Depress ion, unspecified depression type TAKE ONE CAPSULE BY MOUTH ONCE DAILY WITH A MEAL. TAKE WITH 75 MG CAPSULE FOR A TOTAL DAILY DOSE OF 225 MG. 30 Capsule 4 04/14/20 24 Discontinued venlafaxine (EFFEXOR XR) 75 mg cp24 Extended-Release capsuleIndication s:Anxiety,Depress ion, unspecified depression type TAKE 1 CAPSULE BY MOUTH EVERY DAY WITH A MEAL TAKE IN COMBINATION WITH 150MG CAPSULE TO EQUAL 225MG EVERY DAY 30 Capsule 4 04/14/20 24 Discontinued Active Problems Problem Noted Date [...] abuse, episodic 11/25/2006 Overview (03/06/2011): Treatment katie rdza 09/16 through 11/16 and now at family [...] Encounters Date Type Department Care Team Description 04/10/[address] [address] Carola Deshpande DO Refill Request (Venlafaxine, Venlafaxine) 03/19/2024 Orders Only [facility] Scanner 1 scan: (1-Ord) [facility], CT SOFT TISSUE NECK W CONTRAST, 03/19/2024 02/18/2024 Refill [facility] [address] [facility] [place] [address] Carola Deshpande, DO Refill Request (Potassium Chloride, Venlafaxine, Venlafaxine) 2024 Refill [facility] [address] [facility] [place] [address] Carola Deshpande, DO Refill Request (venlafaxine (EFFEXOR XR) 75 mg cp24 Extended-Release/venla faxine (EFFEXOR XR) 150 mg Extended-Release capsule/) 01/31/2024 Orders Only [facility] Scanner 1 scan: (1-Ord) [facility], XR ABDOMEN MIN 2V, 01/31/2024 from Last 3 Months Immunizations Name Administration [...] M Vag Epidur al Livin g Rakesh [facility] Delivery Location:[facility] Comments:INDUCTION for oligohydramnios 7 32w 0d Livin g Delivery Location:[place], [place] Comments:CHF decomp du e to meth [...] 02/26/2023 11:54 AM CDT Plan of Treatment Upcoming Encounters Date Type Department Care Team (Late st Contact Info) Description 05/12/2024 11:10 AM ELECTRONIC WARFARE TECHNICIAN Office Visit [address] [place] [address] Carola Deshpadne, DO [address] [place] [address] Health Maintenance Due Date Last Done Comments [...] LESS THAN 130/80 Blood Pressure No Dasha Britt, modeling analyst Procedure Name Priority Date/Time Associated Diagnosis Comments SCAN-CT INTERPRETATION 03/19/2024 12:00 AM CDT SCAN-RADIOLOGY REPORT 01/31/2024 12:00 AM CDT LC HIV-1/O/2, 4TH GENERATION Routine 02/26/2023 12:47 PM CDT Screening for HIV (human immunodeficiency virus) LIPID PANEL W REFLEX MEASURED LDL Routine 02/26/2023 12:47 PM CDT Hypertension Hyperlipidemia, unspecified hyperlipidemia type XR MAMMO BILAT SCREENING Routine 11/08/2021 11:17 AM CDT Visit for screening mammogram COLONOSCOPY 02/01/2018 1:28 PM CDT CATALYTIC CONVERTER OPERATOR HELPER THIN PREP PAP SCREEN IMAGED Routine 03/06/2011 10:30 AM CDT Screening for malignant neoplasm of the cervix ANTI HCV Routine 08/29/2006 9:45 AM ELECTRONIC WARFARE TECHNICIAN Supervision Of Other Normal from Last 3 Months or Most Recently Relevant to Health Maintenance Results * SCAN-CT INTERPRETATION (03/19/2024 12:00 AM CDT) Anatomical Region Laterality Modality Other Scanner OTHER * SCAN-RADIOLOGY REPORT (01/31/2024 12:00 AM CDT) Anatomical Region Laterality Modality Other Scanner OTHER * LC HIV-1/O/2, 4TH GENERATION (02/26/2023 12:47 PM CDT) HIV Scr 4th Gen Non Reactive Non Reactive 02/28/2023 2:08 PM CDT [facility] Comment: HIV Negative HIV-1/HIV-2 antibodies and HIV-1 p24 antigen were NOT detected. There is no laboratory evidence of HIV infection. Blood BLOOD SPECIMEN / Unknown Venipuncture / Unknown 02/26/2023 12:47 PM CDT 02/26/2023 12:50 PM CDT Narrative [facility] - 02/28/2023 2:08 PM CDT Performed at: ??[address] ??[id number] Wool Spotter: Gurdeep Mac MD, Phone: ??[phone] Carola Deshpande DO LABORATORY [facility] ([facility]) [address] [place] [address], * (ABNORMAL) LIPID PANEL W REFLEX MEASURED LDL (02/26/2023 12:47 PM CDT) CHOLESTEROL,TOTAL 185 100 - 199 mg/dL 02/26/2023 1:30 PM T [facility] TRIGLYCERIDES 261(H) <150 mg/dL 02/26/2023 1:30 PM T [facility] HDL CHOLESTEROL 44 >40 mg/dL 1:30 PM T [facility] NON-HDL CHOLESTEROL 141 <145 mg/dl 02/26/2023 1:[address] [facility] CHOL/HDL RATIO 4.20 <4.50 02/26/2023 1:[address] [facility] LDL CHOLESTEROL 89 <=130 mg/dL 02/26/2023 1:[address] [facility] VLDL CHOLESTEROL 52(H) <=30 mg/dL 02/26/2023 1:[address] [facility] PROVIDER ORDERED STATUS RANDOM 02/26/2023 1:[address] [facility] Blood BLOOD SPECIMEN / Unknown Venipuncture / Unknown 02/26/2023 12:47 PM CDT 02/26/2023 12:50 PM CDT Carola Deshpande DO CHEMISTRY [facility] [address] [place] [address] * XR MAMMO BILAT SCREENING (11/08/2021 11:17 [...] health care provider. XR MAMMO BILAT SCREENING [[id number]] CLINICAL HISTORY: ??This is an asymptomatic 56 y.o. patient. INDICATION FOR EXAM: Mammogram Screening. TECHNIQUE: CC & MLO views were obtained. ??This study was evaluated with the assistance of Computer-Aided Detection. COMPARISON FILMS: Yes 12/26/17 Mapori ?? FINDINGS: ??The breasts have scattered areas [...] PM Naveen Rubin DO PROCEDURE ORD * CATALYTIC CONVERTER OPERATOR HELPER THIN PREP PAP SCREEN IMAGED (03/06/2011 10:30 AM CDT) CYTOLOGY CYTOPATHOLOGY REPORT [facility] Status: Final Status ?[id number] CLINICAL INFORMATION Last Date of LMP ? :Premenarcheal Last Pap Date ?:02-09-11 Last Pap Result ?:NIL ABN [place]/Bx Past 5 YRS :None Hormone Usage ?:BCP/OCP/Patch/R ing Menstrual Status ? :Regular Periods [place]/Bx done today ? :No Additional Information :None [...] COLLECTED:03/06/11 ? ACCESSIONED: ??03/07/11 ?? SIGNED: ??03/09/11 [facility] PAP [place] CODE NIL [facility] Cervical/Vaginal (Cervical/Vagina l) 03/06/2011 10:30 AM CDT 03/06/2011 10:29 AM CDT Esther Duran NP PATHOLOGY/CYTOLOGY [facility] INTERNAL ZIP [id number] [place] [id number] * HEPATITIS C [[id number]] (08/29/2006 9:45 AM ELECTRONIC WARFARE TECHNICIAN) ANTI HCV Non-reactiv e [facility] Blood specimen (specimen) BLOOD SPECIMEN / Unknown 08/29/2006 9:45 AM ELECTRONIC WARFARE TECHNICIAN 08/29/2006 9:30 AM ELECTRONIC WARFARE TECHNICIAN Narrative [facility] - 08/31/2006 1:01 PM ELECTRONIC WARFARE TECHNICIAN Testing Performed By [place], [place] Balbir Beltran DO SEND OUTS [facility] [address] [place] [address] from Last 3 Months or Most Recently [...] 9:43 AM 11/25/2006 1:27 PM Care Teams Color Grinder Relationship Specialty Start Date End Date Carola Deshpande DO [address] [facility] [place] [address] PCP - General Internal Medicine 03/01/23 Bradley Kumar MD Family Practice 10/25/11
[2024-04-27 14:50] VITALS: BP 144/79; PULSE 107; RESP 30; O2SAT 95
[2024-04-27 14:59] LABS: Basophils Percent Auto 0.4 % (0.0-3.0); Eosinophils Percent Auto 2.4 % (0.0-7.0); Hematocrit 33.3 % (33.0-51.0); Hemoglobin* 9.1 gm/dL (12.0-16.0); Immature Granulocytes Pct Auto 0.1 %; Lymphocytes Percent Auto 10.6 % (20-44); Mean Corpuscular HGB Conc 27 gm/dL (32-36); Mean Corpuscular Hemoglobin 22 pg (26-34); Mean Corpuscular Volume 82 fL (80-100); Neutrophils Percent Auto 79.5 % (42.0-72.0); Platelet Count* 369 K/uL (140-440); RDW Coefficient of Variation % 16.9 % (11.5-15.5); Red Blood Count 4.08 m/uL (4.00-5.20); Slide Review Reflex No; White Blood Count* 13.61 K/uL (4.50-11.00)
[2024-04-27 15:00] VITALS: BP 149/78; PULSE 108; RESP 28; O2SAT 94
--- NOTE | 2024-04-27 15:06 | ED_ITS ---
HPI - General Adult General Chief complaint: Fever Stated complaint: Fever, chills, cough Time Seen by Provider: 04/27/24 14:34 Source: patient Mode of arrival: ambulatory Limitations: no limitations History of Present Illness HPI narrative: 59-year-old female presenting today with shortness of breath, fatigue, cough and chills at all started on Sunday. Continued into yesterday and got worse this morning. Patient complains of a decreased appetite, difficulty breathing. She does have a history of COPD and iron deficiency anemia. Patient states that she does use an albuterol inhaler and Advair as well as Spiriva regularly. Has been using her medications as prescribed. Denies any recent traveling. Related Data Home Medications ?Medication ?Instructions ?Recorded ?Confirmed cetirizine 10 mg tablet 10 mg PO DAILY 02/12/22 03/19/24 famotidine 20 mg tablet 20 mg PO DAILY 02/12/22 03/19/24 fluticasone propionate 115 2 puff inhalation DAILY 02/12/22 03/19/24 mcg-salmeterol 21 mcg/actuation HFA inhaler (Advair HFA) lisinopril 5 mg tablet 5 mg PO DAILY 02/12/22 03/19/24 potassium chloride 20 mEq 20 meq PO BID 02/12/22 03/19/24 tablet,extended release(part/cryst) tiotropium bromide 18 mcg capsule 1 cap inhalation DAILY 02/12/22 03/19/24 with inhalation device (Spiriva with HandiHaler) venlafaxine 150 mg 150 mg PO DAILY 02/12/22 03/19/24 capsule,extended release 24 hr venlafaxine 75 mg capsule,extended 75 mg PO DAILY 02/12/22 03/19/24 release 24 hr Previous Rx's ?Medication ?Instructions ?Recorded albuterol sulfate 90 mcg/actuation 2 puff inhalation Q4-6H PRN 08/15/22 aerosol inhaler (ProAir HFA) shortness of breath or wheezing #8.5 grams polyethylene glycol 3350 17 17 g PO .daily-tid PRN #238 grams 01/31/24 gram/dose oral powder (Miralax) azithromycin 250 mg tablet 250 mg PO DIRECTED #6 tabs 04/27/24 ipratropium 0.5 mg-albuterol 3 mg 3 ml inhalation QID PRN #90 mL 04/27/24 (2.5 mg base)/3 mL nebulization soln prednisone 20 mg tablet 20 mg PO DIRECTED 9 days #18 04/27/24 tabs Allergies Allergy/AdvReac Type Severity Reaction Status Date / Time No Known Drug Allergies Allergy Verified 03/19/24 19:18 Review of Systems Status of ROS: Reports: 10 or more systems reviewed and unremarkable except as noted in History and below [facility] Medical History Sigmoid diverticulitis ?K57.32 - Diverticulitis of large intestine without perforation or abscess without bleeding (ICD-10) Left breast mass ?N63.20 - Unspecified lump in the left breast, unspecified quadrant (ICD-10) Iron deficiency anemia ?D50.9 - Iron deficiency anemia, unspecified (ICD-10) Tobacco use disorder ?F17.200 - Nicotine dependence, unspecified, uncomplicated (ICD-10) Anxiety ?F41.9 - Anxiety disorder, unspecified (ICD-10) Cardiomegaly ?I51.7 - Cardiomegaly (ICD-10) Migraine ?G43.909 - Migraine, unspecified, not intractable, without status migrainosus (ICD-10) GERD (gastroesophageal reflux disease) ?K21.9 - Gastro-esophageal reflux disease without esophagitis (ICD-10) Hypertension ?I10 - Essential (primary) hypertension (ICD-10) Vitamin A deficiency ?E50.9 - Vitamin A deficiency, unspecified (ICD-10) H/O drug abuse ?F19.11 - Other psychoactive substance abuse, in remission (ICD-10) CHF (congestive heart failure) ?I50.9 - Heart failure, unspecified (ICD-10) Personality disorder ?F60.9 - Personality disorder, unspecified (ICD-10) Depression ?F32.A - Depression, unspecified (ICD-10) COPD (chronic obstructive pulmonary disease) ?J44.9 - Chronic obstructive pulmonary disease, unspecified (ICD-10) Chronic neck pain ?M54.2 - Cervicalgia (ICD-10) ?G89.29 - Other chronic pain (ICD-10) Chronic lower back pain ?M54.50 - Low back pain, unspecified (ICD-10) ?G89.29 - Other chronic pain (ICD-10) Hypokalemia ?E87.6 - Hypokalemia (ICD-10) Hyperlipemia ?E78.5 - Hyperlipidemia, unspecified (ICD-10) Surgical History History of colonoscopy ?Z98.890 - Other specified postprocedural states (ICD-10) History of section ?Z98.891 - History of uterine scar from previous surgery (ICD-10) History of breast biopsy ?Z98.890 - Other specified postprocedural states (ICD-10) No significant past surgical history Family History Father Heart disease FH: mental illness Mother High blood pressure Sister FH: mental illness Social History Narrative: She lives in [place] with her boyfriend Jordan who 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 Her code status is full. 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 She has 2 sons, 1 living at home. She does smoke cigarettes. She does not drink alcohol Highest level of school completed/degree received: high school graduate Smoking Status: Current every day smoker What tobacco products do you use: cigarettes Smoking packs per day: 1 Smoking cigarettes per day: 20.0 How often do you have a drink containing alcohol: never AUDIT-C Alcohol total score: 0 Non-prescribed substance use: denies use Caffeine: Yes service: No Exam Narrative: Exam Narrative: Well-nourished well-developed patient in mild respiratory distress. She is tachypneic with increased work of breathing. Alert and oriented. Answers questions appropriately. Mood and affect are appropriate. Thoughts are goal oriented and rational. No tangential or magical thinking noted. Patient has a hard time finishing a sentence without needing to catch her breath. HEENT: Normocephalic atraumatic. Pupils are equally round reactive to light. Extraocular muscles are intact. Conjunctivae are moist without any icterus noted. Moist mucous membranes. Posterior pharynx is normal. Neck is soft without any lymphadenopathy or thyromegaly. Cardiovascular: Tachycardic. Lungs: Diffuse wheezing bilaterally. Abdomen: Soft and nontender nondistended with normal bowel sounds. Extremities: Bilateral lower extremities are without edema. Skin: Well perfused without any obvious rashes. Patient is not diaphoretic or clammy. Const: Vital Signs, click to edit/add: Vital Signs - 24 hr 04/27/24 14:20 Temperature 98.1 F Pulse Rate [Right Pulse Oximeter] 110 H Respiratory Rate 24 Blood Pressure [Ri ght Upper Arm] 160/77 H Pulse Oximetry 94 Oxygen Delivery Me thod Room Air Course Course ED Course: EKG, read by me, shows sinus tachycardia with a pulse of 106. Patient is given DuoNeb and oral prednisone. CBC shows a slightly elevated white cell count at 13.6. Hemoglobin is at 9.1 which appears to be around or just below her baseline. VBG shows a pH of 7.403, pCO2 of 46, HC03 of 29. Electrolytes are normal. Triple swab is negative Troponin was normal. A chest x-ray, read by me, does not show any acute pathology. Patient felt significantly better after treatment was requesting to go home. Re-examination revealed that her wheezing had resolved. I recheck her pulse and it was 94. Vital Signs Vital signs: Initial Vital Signs Temperature 98.1 F 04/27/24 14:20 Temperature Source Temporal Artery Scan 04/27/24 14:20 Pulse Rate 110 H 04/27/24 14:20 Pulse Rhythm Regular 04/27/24 14:20 Pulse Strength 3+ Normal 04/27/24 14:20 Respiratory Rate 24 04/27/24 14:20 Blood Pressure 160/77 H 04/27/24 14:20 Blood Pressure Mean 104 04/27/24 14:20 Blood Pressure Position Sitting 04/27/24 14:20 Pulse Oximetry 94 04/27/24 14:20 Oxygen Delivery Method Room Air 04/27/24 14:20 Vital Signs Temperature 98.1 F 04/27/24 14:20 Pulse Rate 110 H 04/27/24 14:20 Respiratory Rate 24 04/27/24 14:20 Blood Pressure 160/77 H 04/27/24 14:20 Pulse Oximetry 94 04/27/24 14:20 Oxygen Delivery Method Room Air 04/27/24 14:20 Temperature 98.1 F 04/27/24 14:20 Pulse Rate 110 H 04/27/24 14:20 Respiratory Rate 24 04/27/24 14:20 Blood Pressure 160/77 H 04/27/24 14:20 Pulse Oximetry 94 04/27/24 14:20 Oxygen Delivery Method Room Air 04/27/24 14:20 Medications Administered Medications: Discontinued Medications Generic Name Dose Route Start Last Admin Trade Name Flor PRN Reason Stop Dose Admin Albuterol/Ipratropium 1 neb 04/27/24 15:03 04/27/24 15:08 Iprat-Albut 0.5-2.5 Mg/3 Ml Neb IH 04/27/24 15:04 1 neb ONCE ONE Administration Prednisone 50 mg 04/27/24 15:03 04/27/24 15:14 Prednisone 10 Mg Tablet PO 04/27/24 15:04 50 mg ONCE ONE Administration Medical Decision Making MDM Narrative Medical decision making narrative: 59-year-old female with COPD exacerbation -felt significantly better after treatment. I do not see any evidence of pneumonia hit although that is a possibility. Patient will be sent home with prednisone taper, azithromycin and DuoNebs. Patient states that she does have DuoNebs at home but I did refill them today in case she is low. She will follow-up as needed. Otherwise recommend returning to the emergency department for worsening symptoms. Lab Data Lab results reviewed: Yes I reviewed the patient's lab results Labs: Lab Results 04/27/24 04/27/24 04/27/24 Range/Units 14:35 14:48 15:12 WBC 13.61 H (4.50-11.00) K/uL RBC 4.08 (4.00-5.20) m/uL Hgb 9.1 L (12.0-16.0) gm/dL Hct 33.3 (33.0-51.0) % MCV 82 (80-100) fL MCH 22 L (26-34) pg MCHC 27 L (32-36) gm/dL RDW Coeff of Dolores 16.9 H (11.5-15.5) % Plt Count 369 (140-440) K/uL Neut % (Auto) 79.5 H (42.0-72.0) % Lymph % (Auto) 10.6 L (20-44) % [place] % (Auto) 7.0 (0.0-11.0) % Eos % (Auto) 2.4 (0.0-7.0) % Baso % (Auto) 0.4 (0.0-3.0) % Neut # (Auto) 10.80 H (1.7-7.0) K/uL Lymph # (Auto) 1.40 (0.90-2.90) K/uL [place] # (Auto) 1.00 H (0.00-0.90) K/UL Eos # (Auto) 0.30 (0.00-0.50) K/uL Baso # (Auto) 0.10 (0.00-0.30) K/uL Abs Immat Gran (auto) 0.00 (0.00-0.30) K/uL Imm/Tot Granulo (auto) 0.1 % VBG pH 7.403 (7.32-7.43) VBG pCO2 46 (40-50) mmHG VBG pO2 40.0 (25-47) mmHG VBG HCO3 29 H (21-28) mmol/L Sodium 138 (135-149) mmol/L Potassium 3.7 (3.6-5.1) mmol/L Chloride 100 (96-114) mmol/L Carbon Dioxide 27 (20-32) mmol/L Anion Gap 11 (7-15) mEq/L BUN 9 (7-30) mg/dL Creatinine 0.5 (0.5-1.5) mg/dL Estimated Creat Clear 104.61 Estimated GFR 108 ml/min Glucose 143 H (60-115) mg/dL Calcium 9.0 (8.4-10.6) mg/dL Total Bilirubin 0.2 (0.1-1.5) mg/dL Direct Bilirubin 0.0 (0.0-0.5) mg/dL AST 23 (12-35) U/L ALT 16 (4-35) U/L Alkaline Phosphatase 96 (40-150) U/L Troponin I < 0.01 L (0.01-0.04) ng/mL C-Reactive Protein 2.4 H (0.5-1.0) mg/dL Total Protein 7.6 (6.0-8.3) g/dL Albumin 4.3 (3.3-5.0) g/dL SARS-CoV-2 (PCR) Negative SARS-CoV-2 (Negative) Influenza Type A (PCR) Negative PCR FLU A (Negative) Influenza Type B (PCR) Negative PCR FLU B (Negative) RSV (PCR) Negative PCR RSV (Negative) Imaging Data Chest x-ray: Attestation: I have reviewed the pertinent imaging results. Radiologist's impression: TECHNIQUE: Chest 2 view(s) COMPARISON: Chest radiograph dated 10/29/2022. FINDINGS: Heart size is upper limits of normal. Pulmonary vasculature is normal. Prominence of the central interstitial lung markings, nonspecific, can be seen with viral process versus mild pulmonary edema. No layering pleural effusion. No pneumothorax. Multilevel degenerative changes of the visualized spine. IMPRESSION: Prominence of the central interstitial lung markings, nonspecific, can be seen with viral process versus mild pulmonary edema. ECG Data Attestation: I personally reviewed and interpreted this ECG as follows: Discharge Plan Discharge Clinical Impression: Acute exacerbation of chronic obstructive pulmonary disease Patient Disposition: Home, Self-Care Condition: Improved Additional Instructions: Start prednisone taper. Take azithromycin as prescribed. Take DuoNebs as needed throughout the day. Prescriptions: New azithromycin 250 mg tablet 250 mg PO DIRECTED Qty: 6 0RF Taper: Z-REYMUNDO 500 mg Q24H for 1 Day and 0 Hour 250 mg Q24H for 4 Days and 0 Hour Rx Instructions: For 250 mg dose pack: take 500 mg today (day 1), then 250 mg for 4 days (days 2-5) prednisone 20 mg tablet 20 mg PO DIRECTED 9 Days Qty: 18 0RF Rx Instructions: 60 mg p.o. daily for 3 days (3 tablets daily on day 1-3), 40 mg daily for 3 days (2 tablets daily on days 4-6), 20 mg daily for 3 days (1 tablet daily on days 7-9). ipratropium-albuterol 0.5 mg-3 mg(2.5 mg base)/3 mL solution for nebulization 3 ml inhalation QID PRNQty: 90 0RF No Action polyethylene glycol 3350 [Miralax] 17 gram/dose powder 17 g PO .daily-tid PRNQty: 238 1RF potassium chloride 20 mEq tablet,ER particles/crystals 20 meq PO BID lisinopril 5 mg tablet 5 mg PO DAILY venlafaxine 150 mg capsule,extended release 24hr 150 mg PO DAILY Patient Comments: TAKE ONE CAPSULE BY MOUTH ONCE DAILY WITH A MEAL. TAKE WITH 75 MG CAPSULE FOR A TOTAL DAILY DOSE OF 225 MG. venlafaxine 75 mg capsule,extended release 24hr 75 mg PO DAILY tiotropium bromide [Spiriva with HandiHaler] 18 mcg capsule, w/inhalation dev ice 1 cap INHALATION DAILY fluticasone propion-salmeterol [Advair HFA] 115-21 mcg/actuation HFA aerosol inhaler 2 puff INHALATION DAILY Patient Comments: INHALE 2 PUFFS BY MOUTH TWICE DAILY cetirizine 10 mg tablet 10 mg PO DAILY famotidine 20 mg tablet 20 mg PO DAILY albuterol sulfate [ProAir HFA] 90 mcg/actuation HFA aerosol inhaler 2 puff inhalation Q4-6H PRN (Reason: shortness of breath or wheezing) Qty: 8.5 0RF Follow Up/Referrals: Carola Deshpande [Primary Care Provider] - Stand Alone Forms: [employer] Info Instructions
[2024-04-27] MEDS: IPRAT-ALBUT 0.5-2.5 MG/3 ML NEB 1 NEB IH (15:08)
[2024-04-27] MEDS: predniSONE 10 MG TABLET 50 MG PO (15:14)
[2024-04-27 15:16] LABS: Albumin* 4.3 g/dL (3.3-5.0)
[2024-04-27 15:17] LABS: Chloride* 100 mmol/L (96-114); Potassium* 3.7 mmol/L (3.6-5.1); Sodium* 138 mmol/L (135-149)
[2024-04-27 15:17] LABS: HCO3 VBG 29 mmol/L (21-28); PCO2 VBG 46 mmHG (40-50); pH VBG 7.403 (7.32-7.43)
[2024-04-27 15:19] LABS: Alkaline Phosphatase* 96 U/L (40-150); Aspartate Amino Transferase* 23 U/L (12-35); Bilirubin Total* 0.2 mg/dL (0.1-1.5); Total Protein* 7.6 g/dL (6.0-8.3)
[2024-04-27 15:20] LABS: Alanine Aminotransferase* 16 U/L (4-35); Creatinine* 0.5 mg/dL (0.5-1.5); Est. Creatinine Clearance* 104.61; Estimated Glomerular Filt Rate 108 ml/min
[2024-04-27 15:21] LABS: Anion Gap 11 mEq/L (7-15); Blood Urea Nitrogen* 9 mg/dL (7-30); Carbon Dioxide* 27 mmol/L (20-32); Glucose* 143 mg/dL (60-115)
[2024-04-27 15:22] LABS: PCR FLU A Negative PCR FLU A (Negative); PCR FLU B Negative PCR FLU B (Negative); PCR RSV Negative PCR RSV (Negative); SARS PCR* Negative SARS-CoV-2 (Negative)
[2024-04-27 15:24] LABS: C Reactive Protein* 2.4 mg/dL (0.5-1.0)
[2024-04-27 15:30] VITALS: BP 152/73; PULSE 100; RESP 28; O2SAT 93
[2024-04-27 15:31] LABS: Troponin I* < 0.01 ng/mL (0.01-0.04)
[2024-04-27 16:00] VITALS: BP 126/62; PULSE 102; RESP 30; O2SAT 95
== END 2024-04-27 16:15 | disposition home or self-care (01) ==
PROVIDERS: Emergency Provider Family Medicine; PCP Internal Medicine
DX: J44.1 Chronic obstructive pulmonary disease with (acute) exacerbation (principal)
CPT/HCPCS: 36415; 71046; 80048; 80076; 82803; 84484; 85025; 86140; 87631; 93005; 94761; 99284; 99285; J7512

== ENCOUNTER 2025-03-24 20:57 | Emergency (ER) | payer MEDICAID, SELFPAY ==
[2025-03-24 21:03] VITALS: BP 149/67; PULSE 101; RESP 20; TEMP 36.1; O2SAT 96; BMI 27.3
--- NOTE | 2025-03-24 21:07 | ED.GENADULT ---
HPI - General Adult General Time Seen by Provider: 21:07 Date Seen: 03/24/25 Chief complaint: Back Injury/Pain Stated complaint: back injury Time Seen by Provider: 03/24/25 21:06 Source: patient, RN notes reviewed and old records reviewed Mode of arrival: ambulatory Limitations: no limitations History of Present Illness HPI narrative: 60-year-old female comes in with back pain. Patient notes about 5 days ago she was cleaning about tub, developed left-sided back pain after that which has moved over the right side as well. Pain does not radiate into the legs, no bowel or bladder incontinence, no midline pain. Was seen previously for this and prescribed oxycodone which she took and has run out of, not currently taking anything else for her back. Denies urinary symptoms. Pain is constant worse with movement. Related Data Home Medications ?Medication ?Instructions ?Recorded ?Confirmed cetirizine 10 mg tablet 10 mg PO DAILY 02/12/22 03/24/25 famotidine 20 mg tablet 20 mg PO DAILY 02/12/22 03/24/25 fluticasone propionate 115 2 puff inhalation DAILY 02/12/22 03/24/25 mcg-salmeterol 21 mcg/actuation HFA inhaler (Advair HFA) lisinopril 5 mg tablet 5 mg PO DAILY 02/12/22 03/24/25 Held on 03/24/25. Instructions: per patient potassium chloride 20 mEq 20 meq PO BID 02/12/22 03/24/25 tablet,extended release(part/cryst) tiotropium bromide 18 mcg capsule 1 cap inhalation DAILY 02/12/22 03/24/25 with inhalation device (Spiriva with HandiHaler) venlafaxine 150 mg 150 mg PO DAILY 02/12/22 03/24/25 capsule,extended release 24 hr venlafaxine 75 mg capsule,extended 75 mg PO DAILY 02/12/22 03/24/25 release 24 hr Previous Rx's ?Medication ?Instructions ?Recorded albuterol sulfate 90 mcg/actuation 2 puff inhalation Q4-6H PRN 08/15/22 aerosol inhaler (ProAir HFA) shortness of breath or wheezing #8.5 grams polyethylene glycol 3350 17 17 g PO .daily-tid PRN #238 grams 01/31/24 gram/dose oral powder (Miralax) ipratropium 0.5 mg-albuterol 3 mg 3 ml inhalation QID PRN #90 mL 04/27/24 (2.5 mg base)/3 mL nebulization soln Allergies Allergy/AdvReac Type Severity Reaction Status Date / Time trazodone Allergy Hallucinati Verified 03/24/25 21:11 [facility] Medical History Sigmoid diverticulitis ?K57.32 - Diverticulitis of large intestine without perforation or abscess without bleeding (ICD-10) Left breast mass ?N63.20 - Unspecified lump in the left breast, unspecified quadrant (ICD-10) Iron deficiency anemia ?D50.9 - Iron deficiency anemia, unspecified (ICD-10) Tobacco use disorder ?F17.200 - Nicotine dependence, unspecified, uncomplicated (ICD-10) Anxiety ?F41.9 - Anxiety disorder, unspecified (ICD-10) Cardiomegaly ?I51.7 - Cardiomegaly (ICD-10) Migraine ?G43.909 - Migraine, unspecified, not intractable, without status migrainosus (ICD-10) GERD (gastroesophageal reflux disease) ?K21.9 - Gastro-esophageal reflux disease without esophagitis (ICD-10) Hypertension ?I10 - Essential (primary) hypertension (ICD-10) Vitamin A deficiency ?E50.9 - Vitamin A deficiency, unspecified (ICD-10) H/O drug abuse ?F19.11 - Other psychoactive substance abuse, in remission (ICD-10) CHF (congestive heart failure) ?I50.9 - Heart failure, unspecified (ICD-10) Personality disorder ?F60.9 - Personality disorder, unspecified (ICD-10) Depression ?F32.A - Depression, unspecified (ICD-10) COPD (chronic obstructive pulmonary disease) ?J44.9 - Chronic obstructive pulmonary disease, unspecified (ICD-10) Chronic neck pain ?M54.2 - Cervicalgia (ICD-10) ?G89.29 - Other chronic pain (ICD-10) Chronic lower back pain ?M54.50 - Low back pain, unspecified (ICD-10) ?G89.29 - Other chronic pain (ICD-10) Hypokalemia ?E87.6 - Hypokalemia (ICD-10) Hyperlipemia ?E78.5 - Hyperlipidemia, unspecified (ICD-10) Surgical History History of colonoscopy ?Z98.890 - Other specified postprocedural states (ICD-10) History of section ?Z98.891 - History of uterine scar from previous surgery (ICD-10) History of breast biopsy ?Z98.890 - Other specified postprocedural states (ICD-10) No significant past surgical history Family History Father Heart disease FH: mental illness Mother High blood pressure Sister FH: mental illness Social History Narrative: She lives in [place] with her boyfriend Jordan who 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 Her code status is full. 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 She has 2 sons, 1 living at home. She does smoke cigarettes. She does not drink alcohol Highest level of school completed/degree received: high school graduate Smoking Status: Current every day smoker What tobacco products do you use: cigarettes Smoking packs per day: 1 Smoking cigarettes per day: 20.0 How often do you have a drink containing alcohol: never AUDIT-C Alcohol total score: 0 Non-prescribed substance use: denies use Caffeine: Yes service: No Exam Narrative: Exam Narrative: General: Well-developed and well-nourished, no acute distress Head: Atraumatic and normocephalic Eyes: Pupils are equal reactive, extraocular motions intact, conjunctiva clear ENT: External nose and ears are normal, posterior pharynx without erythema or exudate Neck: No midline cervical tenderness, full spontaneous range of motion the neck, trachea midline, no adenopathy Heart: Regular rate and rhythm no murmurs or thrills Lungs: Clear to auscultation bilaterally without wheezes or crackles Abdomen: Soft, nontender, nondistended with active bowel sounds Musculoskeletal: Bilateral low lumbar tenderness worse on the left, no midline tenderness Neurologic: Awake, alert, and oriented x3, no gross focal neurologic deficits, cranial nerves intact as tested Psych: Mood and affect are appropriate Skin: No rashes Const: Vital Signs, click to edit/add: Vital Signs - 24 hr 03/24/25 21:03 Temperature 96.9 F L Pulse Rate [Pulse Oximeter] 101 H Respiratory Rate 20 Blood Pressure [Ri ght Upper Arm] 149/67 H Pulse Oximetry 96 Oxygen Delivery Me thod Room Air Course Course ED Course: Reviewed most recent emergency department visit from March 21 which was for nausea, abdominal pain, back pain, noted that she had left low back pain caused by over exertion, no fall, patient had no focal neurologic deficits, slightly elevated AST, ALT, alkaline phosphatase, normal white blood cell count, hemoglobin 8.9, did even Dilaudid Compazine and Zofran, was discharged with oxycodone and Compazine. Also reviewed oncology visit from today, small cell lung cancer, extensive stage with progression, known liver metastases, also history of COPD, anxiety and methamphetamine abuse. Patient presents today with bilateral low back pain worse on the left after cleaning about that a couple days ago. This been going on for about 5 days. No associated neurologic deficits, no bowel or bladder incontinence, no midline tenderness to palpation or percussion, no red flag symptoms to suggest epidural abscess, cauda equinus syndrome. No indication for emergent MRI at this time. Did consider compression fracture given osteoporosis, however no midline tenderness and gradual onset of pain with no acute trauma and no acute onset of pain. Of note, patient was talking calmly to her sister when I approached the room but started moaning and not answering questions when I entered and introduced myself. Toradol, oxycodone, prednisone, and Ativan ordered. Reevaluation(s) Time of Reevaluation #1: 22:32 Reevaluation #1: Went to the recheck the patient as it has been about 35 minutes since she received her pain medication, apparently she decided leave the department prior to completion of evaluation and treatment. Per nursing, she was yelling at them saying they had further injured her while moving, demanding to see me while I was busy with the other patients in the emergency department. Vital Signs Vital signs: Initial Vital Signs Temperature 96.9 F L 03/24/25 21:03 Temperature Source Temporal Artery Scan 03/24/25 21:03 Pulse Rate 101 H 03/24/25 21:03 Respiratory Rate 20 03/24/25 21:03 Blood Pressure 149/67 H 03/24/25 21:03 Blood Pressure Mean 94 03/24/25 21:03 Blood Pressure Position Sitting 03/24/25 21:03 Pulse Oximetry 96 03/24/25 21:03 Oxygen Delivery Method Room Air 03/24/25 21:03 Vital Signs Temperature 96.9 F L 03/24/25 21:03 Pulse Rate 101 H 03/24/25 21:03 Respiratory Rate 20 03/24/25 21:03 Blood Pressure 149/67 H 03/24/25 21:03 Pulse Oximetry 96 03/24/25 21:03 Oxygen Delivery Method Room Air 03/24/25 21:03 Temperature 96.9 F L 03/24/25 21:03 Pulse Rate 101 H 03/24/25 21:03 Respiratory Rate 20 03/24/25 21:03 Blood Pressure 149/67 H 03/24/25 21:03 Pulse Oximetry 96 03/24/25 21:03 Oxygen Delivery Method Room Air 03/24/25 21:03 Medications Administered Medications: Discontinued Medications Generic Name Dose Route Start Last Admin Trade Name Freq PRN Reason Stop Dose Admin Ketorolac Tromethamine 30 mg 03/24/25 21:31 03/24/25 21:49 Ketorolac 30 Mg/Ml Inj IM 03/24/25 21:32 30 mg ONCE ONE Administration Lorazepam 1 mg 03/24/25 21:31 03/24/25 21:49 Lorazepam 1 Mg Tablet PO 03/24/25 21:32 1 mg ONCE ONE Administration Oxycodone HCl 5 mg 03/24/25 21:31 03/24/25 21:49 Oxycodone 5 Mg Tablet PO 03/24/25 21:32 5 mg ONCE ONE Administration Prednisone 40 mg 03/24/25 21:31 03/24/25 21:49 Prednisone 20 Mg Tablet PO 03/24/25 21:32 40 mg ONCE ONE Administration Discharge Plan Discharge Clinical Impression: Metastatic lung cancer (metastasis from lung to other site), Low back pain, Strain of lumbar region Patient Disposition: Left Against Medical Advice Prescriptions: No Action polyethylene glycol 3350 [Miralax] 17 gram/dose powder 17 g PO .daily-tid PRNQty: 238 1RF ipratropium-albuterol 0.5 mg-3 mg(2.5 mg base)/3 mL solution for nebulization 3 ml inhalation QID PRNQty: 90 0RF potassium chloride 20 mEq tablet,ER particles/crystals 20 meq PO BID lisinopril 5 mg tablet 5 mg PO DAILY venlafaxine 150 mg capsule,extended release 24hr 150 mg PO DAILY Patient Comments: TAKE ONE CAPSULE BY MOUTH ONCE DAILY WITH A MEAL. TAKE WITH 75 MG CAPSULE FOR A TOTAL DAILY DOSE OF 225 MG. venlafaxine 75 mg capsule,extended release 24hr 75 mg PO DAILY tiotropium bromide [Spiriva with HandiHaler] 18 mcg capsule, w/inhalation device 1 cap INHALATION DAILY fluticasone propion-salmeterol [Advair HFA] 115-21 mcg/actuation HFA aerosol inhaler 2 puff INHALATION DAILY Patient Comments: INHALE 2 PUFFS BY MOUTH TWICE DAILY cetirizine 10 mg tablet 10 mg PO DAILY famotidine 20 mg tablet 20 mg PO DAILY albuterol sulfate [ProAir HFA] 90 mcg/actuation HFA aerosol inhaler 2 puff inhalation Q4-6H PRN (Reason: shortness of breath or wheezing) Qty: 8.5 0RF Follow Up/Referrals: Carola Deshpande [Primary Care Provider, Internal Medicine] Stand Alone Forms: [employer] Info Instructions
--- OUTSIDE RECORDS SUMMARY | 2025-03-24 21:16 | XMS_ITS | Clinical Summary ---
Author Organization [facility] Address [address] [place] [id number] Care Team Providers Care Aircraft Fueler Name Role Phone Bradley Kumar MD Unavailable Un available Carola Deshpande DO Primary Care Provider Opal Astorga RN Unavailable Vern Ivy LGSW Unavailable [phone] Sahra Parker TRANSFORMER STOCK CLERK Unavailable Kimberly Cooney MD Unavailable [phone] Allergies Active Allergy Reactions Criticality Noted Date Comments Amlodipine Edema 02/02/2025 Trazodone Nightmares 09/11/2024 Medications aspirin (ECOTRIN) 81 mg enteric coated tabletIndicatio ns:Hypertension Take 1 tablet by mouth once daily with a meal. For heart. 90 tablet 1 017 Active acetaminophen 500 mg tablet Take 1,000 mg by mouth two times daily. Max acetaminophen dose: 4000mg in 24 hrs. 0 Active lidocaine-prilo miquel 2.5%-2.5% creamIndication s:Primary lung cancer with metastasis from lung to other site, right (HC) Apply 5 g topically to affected area(s) each time if needed (as needed for Port Access). Apply to port site 30-45 minutes prior to port access 30 g 2 025 Active albuterol-iprat ropium (2.5-0.5 mg) in 3 mL NEBULIZATION solution Inhale 1 Neb via a nebulizer every 6 hours if needed for Shortness Of Breath. Active pantoprazole 40 mg delayed-release tabletIndicatio ns:Gastroesopha geal reflux disease with esophagitis without hemorrhage Take 1 Tablet (40 mg) by mouth two times daily before meals. 180 Tablet 1 025 Active sennosides 8.6 mg tabletIndicatio ns:Constipation by delayed colonic transit Take 2 Tablets (17.2 mg) by mouth two times daily. 120 Tablet 2 025 Active FreeStyle Baudilio 3 Plus Sensor for continuous blood glucose monitor (CGM)Indication s:Hyperglycemia To be used to read blood sugars, follow crab butcher directions. 6 Each 3 Active metFORMIN 500 mg Extended-Releas e tabletIndicatio ns:Type 2 diabetes mellitus with hyperglycemia, without long-term current use of insulin (HC) Take 1 Tablet (500 mg) by mouth two times daily. 180 Tablet 1 025 Active gabapentin 300 mg capsuleIndicati ons:Small cell lung cancer, right (HC),Cancer associated pain Take 1 Capsule (300 mg) by mouth three times daily. 90 Capsule 5 025 Active venlafaxine 150 mg Extended-Releas e capsuleIndicati ons:Anxiety,Dep ression, unspecified depression type TAKE 1 CAPSULE BY MOUTH ONCE A DAY WITH A MEAL. TAKE WITH THE 75MG CAPSULES 90 Capsule 1 025 Active venlafaxine 75 mg cp24 Extended-Releas e capsuleIndicati ons:Anxiety,Dep ression, unspecified depression type TAKE 1 CAPSULE BY MOUTH ONCE A DAY WITH A MEAL. TAKE WITH THE 150MG CAPSULES 90 Capsule 025 Active cetirizine 10 mg tablet Take 10 mg by mouth once daily. Active famotidine 20 mg tablet Take 20 mg by mouth two times daily. Active polyethylene glycoL 17 gram/scoop powder Mix 17 g in liquid then take by mouth once daily if needed for Constipation. Active allopurinoL 300 mg tabletIndicatio ns:Small cell lung cancer, right (HC) TAKE 1 TABLET(300 MG) BY MOUTH DAILY 28 Tablet 2 025 Active Lantus Solostar U-100 Insulin 100 unit/mL (3 mL) penIndications: Type 2 diabetes mellitus with hyperglycemia, without long-term current use of insulin (HC) Inject 30 units subcutaneous once daily in the morning. Product desired: LANTUS SOLOSTAR 60 mL 3 Active budesonide-form oteroL 80-4.5 mcg/actuation (80-4.5 mcg each actuation) inhalerIndicati ons:Chronic obstructive pulmonary disease with acute exacerbation (HC) Inhale 2 Puffs by mouth two times daily. Rinse mouth after use 30.6 g 3 Active multivitamin folic acid 0.4 mgIndications:S mall cell lung cancer, right (HC) Take 1 Tablet by mouth once daily. 90 Tablet 3 Active albuterol HFA (Ventolin HFA) 90 mcg/actuation inhalerIndicati ons:History of COPD INHALE 2 PUFFS BY MOUTH EVERY 6 HOURS NEEDED FOR COUGH 18 g 2 Active glipiZIDE (GLUCOTROL) 5 mg tabletIndicatio ns:Type 2 diabetes mellitus with hyperglycemia, without long-term current use of insulin (HC) Take 1 Tablet (5 mg) by mouth once daily before a meal. 90 Tablet 1 Active nicotine 21 mg/24 hr (NICODERM; HABITROL) 21 mg/24 hr patchIndication s:Tobacco use disorder Apply 1 Patch on dry, clean, hairless skin once daily. 30 Patch 2 Active nicotine 4 mg lozengeIndicati ons:Tobacco use disorder Place 1 Lozenge (4 mg) in mouth, between cheek & gum every hour while awake as needed for Nicotine Craving. Max 20 lozenges per day 576 Each 2 Active Additional Information Patient not taking.Reported on 03/24/2025 mirtazapine (REMERON) 7.5 mg tabletIndicatio ns:Adjustment disorder with mixed anxiety and depressed mood,Generalize d anxiety disorder Take 1 Tablet (7.5 mg) by mouth at bedtime. 30 Tablet 2 025 Active potassium chloride (KLOR-CON M20) 20 mEq extended-releas e tablet (part/cryst)Ind ications:[place] lemia TAKE 1 TABLET(20 MEQ) BY MOUTH DAILY WITH A MEAL 30 Tablet 2 025 Active LORazepam (ATIVAN) 0.5 mg tabIndications: Small cell lung cancer, right (HC) Take 1 Tablet (0.5 mg) by mouth every 6 hours if needed for Anxiety. 30 Tablet 025 Active lidocaine 5 % topical patchIndication s:Acute right flank pain,Acute pain of right shoulder,Muscle strain of chest wall, initial encounter Apply on dry, clean, hairless skin. Apply 1 patch to painful area of skin for up to to 12 hours within 24 hour period. 30 Patch 1 025 Active cyclobenzaprine (FLEXERIL) 5 mg tabletIndicatio ns:Acute right flank pain,Acute pain of right shoulder,Muscle strain of chest wall, initial encounter Take 1 Tablet (5 mg) by mouth 3 times daily if needed for Muscle Spasm. 30 Tablet 1 025 Active ondansetron (ZOFRAN) 8 mg tabletIndicatio ns:Small cell lung cancer, right (HC) Take 1 Tablet (8 mg) by mouth every 8 hours if needed for Nausea/Vomiting. 30 Tablet 2 025 Active prochlorperazin e (Compazine) 10 mg tabletIndicatio ns:Small cell lung cancer, right (HC) Take 1 Tablet (10 mg) by mouth every 6 hours if needed for Nausea/Vomiting. 30 Tablet 2 025 Active torsemide (DEMADEX) 20 mg tabletIndicatio ns:Acute on chronic HFrEF (heart failure with reduced ejection fraction) (HC) Take 1 Tablet (20 mg) by mouth once daily. Take an additional 1 tablet for weight gain of 3 lbs in 24 hours, or 5 lbs in 1 week 45 Tablet 03/16/20 25 1:26 PM CDT 025 Active empagliflozin (JARDIANCE) 10 mg tabletIndicatio ns:Acute on chronic HFrEF (heart failure with reduced ejection fraction) (HC) Take 1 Tablet (10 mg) by mouth once daily. 30 Tablet 1 03/16/20 25 1:26 PM CDT 025 Active metoprolol succinate (TOPROL XL) 50 mg sustained-relea se tabletIndicatio ns:Acute on chronic HFrEF (heart failure with reduced ejection fraction) (HC) Take 1 Tablet (50 mg) by mouth once daily. 30 Tablet 1 03/16/20 25 1:26 PM CDT 025 Active sacubitril-vals matthew (ENTRESTO) 24-26 mg tabletIndicatio ns:Acute on chronic HFrEF (heart failure with reduced ejection fraction) (HC) Take 1 Tablet by mouth two times daily. 60 Tablet 1 03/16/20 25 1:26 PM CDT 025 Active spironolactone 25 mg tabletIndicatio ns:Acute on chronic HFrEF (heart failure with reduced ejection fraction) (HC) Take 1 Tablet (25 mg) by mouth once daily in the morning. 30 Tablet 1 03/16/20 25 1:26 PM CDT 025 Active prochlorperazin e (COMPAZINE) 10 mg tabletIndicatio ns:Nausea Take 0.5 Tablets (5 mg) by mouth every 8 hours if needed for Nausea/Vomiting. 10 Tablet 025 Active oxyCODONE (ROXICODONE) 5 mg immediate release tabletIndicatio ns:Small cell lung cancer, right (HC),Abdominal pain, unspecified abdominal location Take 1 Tablet (5 mg) by mouth every 6 hours if needed for Pain. 10 Tablet 025 Active diazePAM (VALIUM) 10 mg tablet 025 Active ondansetron (ZOFRAN) 8 mg tabletIndicatio ns:Small cell lung cancer, right (HC) Take 1 Tablet (8 mg) by mouth every 8 hours if needed for Nausea/Vomiting. 30 Tablet 09/12/19 25 6:52 PM WEATHER CLERK 025 2024 Discontinued(P harmacist change per medication history (E-cancel not sent)) prochlorperazin e (COMPAZINE) 10 mg tabletIndicatio ns:Small cell lung cancer, right (HC) Take 1 Tablet (10 mg) by mouth every 6 hours if needed for Nausea/Vomiting. 30 Tablet 09/12/19 25 6:52 PM WEATHER CLERK 025 2024 Discontinued(P harmacist change per medication history (E-cancel not sent)) potassium chloride (KLOR-CON M20) 20 mEq extended-releas e tablet (part/cryst)Ind ications:[place] lemia Take 1 Tablet (20 mEq) by mouth once daily with a meal. 30 Tablet 025 2024 Discontinued LORazepam (ATIVAN) 0.5 mg tabIndications: Small cell lung cancer, right (HC) TAKE 1 TABLET(0.5 MG) BY MOUTH EVERY 6 HOURS NEEDED FOR NAUSEA OR VOMITING OR ANXIETY 30 Tablet 025 2024 Discontinued(R eorder (E-cancel not sent)) lisinopriL (PRINIVIL; ZESTRIL) 10 mg tabletIndicatio ns:Hypertension Take 1 Tablet (10 mg) by mouth once daily. 90 Tablet 025 2024 Discontinued(* Med complete/Regim en complete/Level of care change) furosemide (LASIX) 40 mg tabletIndicatio ns:Heart failure, unspecified HF chronicity, unspecified heart failure type (HC) Take 1 Tablet (40 mg) by mouth once daily in the morning. 30 Tablet 025 2024 Discontinued LORazepam (ATIVAN) 0.5 mg tabIndications: Small cell lung cancer, right (HC) Take 1 Tablet (0.5 mg) by mouth every 6 hours if needed for Anxiety. 30 Tablet 025 2024 Discontinued(R eorder (E-cancel not sent)) furosemide (LASIX) 40 mg tabletIndicatio ns:Heart failure, unspecified HF chronicity, unspecified heart failure type (HC) TAKE 1 TABLET(40 MG) BY MOUTH DAILY IN THE MORNING 30 Tablet 5 025 2024 Discontinued(* IP Discontinued) diazePAM (Valium) 10 mg tabletIndicatio ns:Small cell lung cancer, right (HC),Anxiety Take 1 Tablet (10 mg) by mouth one time for 1 dose. 1 Tablet 025 2024 dexAMETHasone 4 mg tabletIndicatio ns:Small cell lung cancer, right (HC) Take 3 tablets (12 mg) by mouth one time as needed for symptoms of cytokine release syndrome or neurotoxicity. Do not take until instructed to by an oncology provider. 9 Tablet 025 2024 Discontinued(* IP Discontinued) cefpodoxime (VANTIN) 200 mg tabletIndicatio ns:Urinary tract infection without hematuria, site unspecified Take 1 Tablet (200 mg) by mouth two times daily for 3 days. 6 Tablet 025 2024 Additional Information Patient not taking.Reported on 03/24/2025 Active Problems Problem Noted Date Diagnosed Date Iron deficiency anemia 12/31/2024 Pleural effusion 12/21/2024 COPD with acute exacerbation 12/20/2024 Acute respiratory failure 12/20/2024 Other nonspecific abnormal finding of lung field 11/18/2024 Drug-induced mood disorder 10/13/2024 Type 2 diabetes mellitus 10/12/2024 Hyperglycemia 10/09/2024 Pneumonia 10/07/2024 Anemia 10/07/2024 Immunocompromised state 10/07/2024 Pleural effusion 10/07/2024 Impaired fasting glucose 09/13/2024 Overview (09/13/2024): Last A1c: 6.2% on 09/11/2024 Small cell lung cancer, righ t metastatic to Liver, Pleura and Mediastinum(HC) 09/09/2024 Cancer Staging:Clinical: pM1 - Signed by Kimberly Cooney MD on 09/30/2024 Lung mass 09/02/2024 Hemoptysis 09/02/2024 History of drug dependence/abuse 09/03/2023 PAD (peripheral [...] Encounters Date Type Department Care Team Description 03/24/2025 1:30 PM CDT Office Visit [facility] [address] [place] [address] Kimberly Cooney MD Follow Up (Small cell lung cancer) 03/24/2025 8:30 AM CDT Social Work Encounter [facility] [address] [place] [address] Social Work Contact 03/24/2025 Travel 03/21/2025 8:38 AM CDT - 03/21/2025 11:25 AM CDT Emergency [facility] [address] [place] [address] Marvin Jean MD Small cell lung cancer, right metastatic to Liver, Pleura and Mediastinum(HC) (Primary Dx); Abdominal pain, unspecified abdominal location; Nausea; Back pain, unspecified back location, unspecified back pain laterality, unspecified chronicity; Diarrhea, unspecified type Discharge Disposition: Home Self Care 03/21/2025 Travel 03/20/2025 9:00 AM CDT Office Visit [facility] [place] [address] [facility] [address] [place] [address] Ryan León MD Follow Up (Small cell lung cancer, right ) 03/20/2025 Travel 03/19/2025 2:20 PM CDT - 03/19/2025 11:59 PM CDT Hospital Encounter [facility] [address] [place] [address] Small cell lung cancer, right (HC) (Primary Dx) 03/19/[address] [facility] [address] [place] [address] Carola Deshpande DO New Med Request (cefpodoxime) 03/19/2025 Telephone [facility] [address] [place] [address] Brenad Wadsworth PA Results 03/18/2025 4:14 PM CDT - 03/18/2025 9:38 PM CDT Emergency [facility] [address] [place] [address] Rohith Bran MD Urinary tract infection without hematuria, site unspecified (Primary Dx); Abdominal pain, unspecified abdominal location Discharge Disposition: Home Self Care 03/18/2025 Travel 03/18/2025 Telephone [facility] [address] [place] [address] Kimberly Cooney MD Uncontrollable Behavior 03/17/2025 Social Work Encounter [facility] [address] [place] [phone] Jane Light LGSW Social Work Contact 03/16/2025 Orders Only [facility] [address] [place] [phone] Jesus Morejon NP <No scans attached> 03/15/[address] [facility] [address] [place] [address] Carola Deshpande DO Prior Authorization (lidocaine 5 % topical patch - DENIED) 03/13/2025 1:22 PM CDT - 03/16/2025 3:52 PM CDT Hospital Encounter [facility] [address] [place] [id number] [facility] [place] Hospitalists Of Irvin Moreno MD Hubbard, Joleen M, MD Leach, Joseph Ward, MD Cytokine release syndrome (Primary Dx); Small cell lung cancer, right (HC); Anxiety; Acute on chronic HFrEF (heart failure with reduced ejection fraction) (HC) Discharge Disposition: Home Self Care 03/13/2025 11:00 AM CDT Office Visit [facility] [place] [address] [place] [address] [address] [place] [address] Ryan León MD Follow Up (Lung Cancer) 03/13/2025 Travel 03/12/2025 11:29 AM CDT - 03/12/2025 11:59 PM CDT Hospital Encounter [facility] [address] [facility] [place] [address] Small cell lung cancer, right (HC) (Primary Dx); Antineoplastic chemotherapy induced anemia; Small cell lung cancer, right (HC) [C34.91] 03/12/2025 10:10 AM CDT Office Visit [facility] [address] [place] [address] Carola Deshpande, Foot Problem (Foot swelling and pain); Pain (Started sunday evening, rib pain/possible muscle tear after doctor appointment(Dexa scan)); Neck Pain/problem (shoulder joint pain on right side) 03/12/2025 Travel 03/11/2025 Telephone [place] [address] [place] [address] Ryan León MD 03/10/2025 11:14 AM CDT - 03/10/2025 11:59 PM CDT Hospital Encounter [facility] [address] [place] [address] Ryan León MD Small cell lung cancer, right (HC) [C34.91] 03/10/2025 11:14 AM CDT - 03/10/2025 11:59 PM CDT Hospital Encounter [facility] [address] [place] [address] Small cell lung cancer, right (HC) (Primary Dx) 03/10/2025 Travel 03/10/2025 Refill [facility] [address] [place] [address] Sahra Parker, TRANSFORMER STOCK CLERK Refill Request; Medication Management 03/08/[address] [facility] [address] [place] [address] Carola Deshpande, Refill Request (Furosemide) 03/05/2025 Refill [facility] [address] [place] [address] Sahra Parker, TRANSFORMER STOCK CLERK Refill Request 03/05/2025 Telephone [facility] [address] [place] [phone] Sahra Parker, TRANSFORMER STOCK CLERK Medication Problem (Needs Ativan for MRI please for today) 03/04/2025 9:30 AM CDT - 03/04/2025 11:59 PM CDT Hospital Encounter [place] [id number] [place] [address] Small cell lung cancer, right (HC) (Primary Dx); Small cell lung cancer, right (HC) [C34.91] 03/04/2025 9:00 AM CDT Office Visit [place] [address] [place] [address] Ryan León MD Follow Up 03/04/2025 Travel 03/02/2025 9:06 AM CDT - 03/02/2025 11:59 PM CDT Hospital Encounter [facility] 200 [facility] [place] [address] Sahra Parker, TRANSFORMER STOCK CLERK Small cell lung cancer, right (HC) [C34.91] 03/02/2025 9:00 AM CDT - 03/02/2025 9:05 AM CDT Hospital Encounter [facility] [address] [place] [address] Small cell lung cancer, right (HC) (Primary Dx) 03/02/2025 Travel 02/21/2025 Refill [facility] [address] [place] [phone] Sahra Parker, TRANSFORMER STOCK CLERK Refill Request (Potassium Chloride) 02/17/2025 12:00 PM CDT Orders Only [facility] [address] [place] [phone] Charisse King <No scans attached> 02/17/2025 Telephone [facility] [address] [place] [phone] [facility] 02/17/2025 Travel 02/12/2025 11:15 AM CDT Office Visit [facility] [address] [facility] [address] Sahra Parker, TRANSFORMER STOCK CLERK Follow Up (Small cell lung cancer) 02/12/2025 10:03 AM CDT - 02/12/2025 11:59 PM CDT Hospital Encounter [facility] [address] [facility] [place], [place] [phone] Small cell lung cancer, right (HC) (Primary Dx) 02/12/2025 Travel 02/06/2025 Orders Only [facility] [address] [place] [address] Sahra Parker, TRANSFORMER STOCK CLERK <No scans attached> 02/04/2025 Telephone [facility] [address] [place] [address] Sahra Parker, TRANSFORMER STOCK CLERK Follow Up 02/04/[address] [facility] [address] [place] [address] Carola Deshpande, Refill Request (furosemide) 02/02/2025 2:15 PM CDT Office Visit [address] [place] [address] Vita Rao, DO Ankle Pain/problem (last 3 days both ankles swelling ) 02/02/2025 Travel 02/02/[address] [facility] [address] [place] [phone] Carola Deshpande, DO Leg Swelling 01/27/2025 Refill [facility] [address] [place] [address] Sahra Parker, TRANSFORMER STOCK CLERK Refill Request (Lorazepam) 01/21/2025 3:15 PM CDT Office Visit [facility] [address] [place] [address] Sahra Parker, TRANSFORMER STOCK CLERK Follow Up (Small cell lung cancer, right ) 01/21/2025 2:15 PM CDT - 01/21/2025 11:59 PM CDT Hospital Encounter [facility] [address] [place] [address] Small cell lung cancer, right (HC) (Primary Dx) 01/21/2025 Travel 01/21/2025 Refill [facility] [address] [place] [address] Rose Copeland DO Refill Request (mirtazapine 7.5 mg tablet) 01/21/[address] [facility] [address] [place] [address] Carola Deshpande DO Medication Management (lozenge/ mints) 01/19/2025 11:30 AM CDT Office Visit [facility] [address] [place] [address] Carola Deshpande DO Diabetes 01/19/2025 Travel 01/16/2025 9:30 AM CDT Office Visit [address] [address] Carola Deshpande DO Hospital F/U 01/16/2025 Travel 01/13/[address] [facility] [address] [place] [address] Verenice Foy RN Primary RN Care Management (Hospital DC: 01/12/25/LACE: 81/Acute Respiratory Failure/); Hospital F/U 01/08/2025 7:18 AM CDT - 01/12/2025 4:50 PM CDT Hospital Encounter [facility] [address] [place] [address] Shaista Fenton MD Hospitalist, [facility] Jayne Saunders, MD [place], Opal Barnett, DO Gomez, Martin Wong, MARIANO SOB (shortness of breath) (Primary Dx); Heart failure, unspecified HF chronicity, unspecified heart failure type (HC); COPD exacerbation (HC); Hypokalemia; Hypertension Discharge Disposition: Home Self Care 01/08/2025 Travel 01/06/2025 3:00 PM CDT - 01/06/2025 11:59 PM CDT Hospital Encounter [facility] 200 [facility] [place] [address] Small cell lung cancer, right (HC) (Primary Dx); Other iron deficiency anemia 01/06/2025 Travel 01/06/[address] [facility] [address] [place] [address] Shannon Burnette MD Refill Request (Albuterol Hfa) 01/01/2025 12:00 PM CDT - 01/01/2025 11:59 PM CDT Hospital Encounter [facility] [address] [place] [address] Other iron deficiency anemia (Primary Dx); Small cell lung cancer, right (HC) 12/31/2024 1:15 PM CDT Office Visit [facility] [address] [place] [address] Sahra Parker, MARIANO Follow Up (Small cell lung cancer) 12/31/2024 12:15 PM CDT - 12/31/2024 11:59 PM CDT Hospital Encounter [facility] [address] [place] [address] Small cell lung cancer, right (HC) (Primary Dx); Antineoplastic chemotherapy induced anemia; Other iron deficiency anemia 12/31/2024 Travel 12/29/2024 1:40 PM CDT Office Visit [facility] [address] [place] [address] Carola Deshpande, [facility] F/U (Admission Date: 12/20/2024/Discharge Date: 12/22/2024/COPD with acute exacerbation (HC)) 12/29/2024 Travel 12/28/2024 Refill [facility] [address] [place] [address] Sahra Parker, MARIANO Refill Request (Allopurinol) 12/26/[address] [facility] [address] [place] [address] Carola Deshpande DO Refill Request (Budesonide-formoter ol, Lantus Solostar U-100 Insulin) 12/23/[address] [facility] [address] [place] [address] Tequila Ruff, JANAE Primary RN Care Management; Hospital F/U (DOD: 12/22/24, DX: COPD with acute exacerbation, LACE 79) 12/20/2024 5:12 PM CDT - 12/22/2024 11:54 AM CDT Hospital Encounter [facility] [address] [place] [address] Brenda Wadsworth, Rohith Goncalves MD Hospitalist, [facility] Md Hernandez, Jeffery Ott, DO [place], Opal Barnett, DO Gomez, Martin Wong, TRANSFORMER STOCK CLERK Devin, Balbir Ozuna DO Acute hypoxemic respiratory failure (HC) (Primary Dx); COPD exacerbation (HC); Primary malignant neoplasm of lung metastatic to other site, unspecified laterality (HC); Pleural effusion, right; Anemia, unspecified type; Leukocytosis, unspecified type; Abdominal pain, unspecified abdominal location; Nausea Discharge Disposition: Home Self Care from Last 3 Months Immunizations Immunization Administration Dates Next Due Influenza, IIV3 (Age [...] Types Packs/Day Years Used Date Smoking Tobacco: Some Days Cigarettes 0.5 30.8 Started: 12/28/1997 Smokeless Tobacco: Never Tobacco Cessation:Ready to Q uit: Not Asked; Counseling Given: Not Answered Alcohol Use Standard Drinks/Week Comments Yes 0 (1 standard drink = 0.6 oz pur e alcohol) rarely PHQ-2 Answer Date Recorded PHQ-2 TOTAL SCORE 0 03/24/2025 Social Connections Answer Date Recorded Do you often feel lonely or isolated from those around you? 0 03/13/2025 Alcohol Use Answer Date Recorded How often do you have a drink containing alcohol ? 0 03/24/2025 Average Number of Drinks Not on file 025 Frequency of Binge Drinking Not on file 03/09 Financial Resource Strain Answer Date R ecorded Difficulty of Paying Living Expenses 3 08/04/2024 Difficulty of Paying Living Expenses Not on file 08/04/2024 Food Insecurity Answer Date Recorded Do you worry your food will run out before you are able to buy more? 1 03/13/2025 Transportation Needs Answer Date Record ed Does lack of transportation keep you from medica l appointments? 1 03/13/2025 Does lack of transportation keep you from work, meetings or getting things that you need? 1 03/13/2025 Housing Stability Answer Date Recorded What is your housing situation today? 1 03/13/2025 Interpersonal Safety Answer Date Record ed Are you being hit, kicked, p ushed or yelled at (see row info)? No 03/21/2025 Interpersonal Safety Abuse 12 - 18 Not on file 03/21/2025 Interpersonal Safety Ambulatory Vulnerability No t on file 03/21/2025 Utilities Answer Date Recorded Do you have trouble paying f or utilities (for example, heat, electricity, water, phone)? 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 Not on file Not on file Not on file Obstetrics History Para Term AB IAB SAB Ectopic Multiple Livin g Live Births 2 2 0 2 2 2 Date Outcome GA Total Labor Labor/2nd/3rd Weight Sex Type Anes PTL Jessica A1 A5 Name Clin 1998 36w 0d 10h 00m/ 2.21 kg (4 lb 14 oz) M Vag Epidur al Livin g Rakesh Sweeney -Brown Delivery Location:[facility] Comments:INDUCTION for oligohydramnios 7 32w 0d Livin g Delivery Location:[place], [place] Comments:CHF decomp du e to meth use Last Filed Vital Signs Vital Sign Reading Time Taken Comments Blood Pressure 143/65 03/24/2025 1:23 PM CDT Pulse 90 03/24/2025 1:23 PM CDT Temperature 36.4 C (97.6 F) 03/24/2025 1:23 PM CDT Respiratory Rate 22 03/24/2025 1:23 PM CDT Oxygen Saturation 95% 03/24/2025 1:23 PM CDT Inhaled Oxygen Concentration - - Weight 74.4 kg (164 lb) 03/24/2025 1:23 PM CDT Height 157.5 cm (5' 2) 03/21/2025 8:48 AM CDT Body Mass Index 30 03/21/2025 8:48 AM CDT Plan of Treatment Upcoming Encounters Date Type Department Care Team (Late st Contact Info) Description 03/26/2025 12:00 PM CDT Telemedicine [facility] [id number] [place] [address] [place] [address] [place] [address] 05/13/2025 9:30 AM WEATHER CLERK Office Visit [facility] [place] [phone] [facility] [address] [place] [address] Jalen Fiugeroa MD [address] [place] [address] Health Maintenance Due Date Last Done Comments COVID-19 vaccine series (#1) 1970 Zoster (shingles) series for age 50+ (1 of 2) 02/08/1984 Pap test for age 21-65 03/06/2014 03/06/2011, 2006 Pneumococcal series for age 50+ (3 of 3 - PCV20 or PCV21) 07/08/2018 08/17/2016, 07/08/2013 Tetanus booster 03/06/2021 03/06/2011 Mammogram for age 45-75 11/08/2022 11/09/19 22, 12/26/2017, 03/20/2012, Additional history exists RSV vaccine for adults or (1 - Risk 60-74 years 1-dose series) 2025 Influenza Vaccine (#1) 2025 , 03/08/2017, 08/17/2016, Additional history exists BMI (ht and wt on same day) for age 18+ 11/13/2025 11/13/2024, 09/17/2024, 09/16/2024, Additional history exists Depression screening for age 12+ 03/24/2026 03/24/2025, 03/24/2025, 12/08/2024, Additional history exists Colonoscopy through age 75 02/02/2028 02/01/2018 Lipids for age 45-75 01/16/2030 01/16/2025, 02/26/2023, 09/08/2021, Additional history exists Hepatitis C screening for age 18-79 Completed 08/29/2006 HIV for age 15-65 Completed 02/26/2023 Hepatitis B series for 19+ Aged Out N o longer eligible based on patient's age to complete this topic Goals Goal Patient Goal Type Associated Problems Recent Progress Patient-Stated? Author BLOOD PRESSURE-MA INTAINS BP LESS THAN 130/80 Blood Pressure No Dasha Britt RN Medical Devices Implanted Type Area Payroll Accounting Manager Device Identifier Shelf Expiration Date Model / Serial / Lot Power Port Isp Mri 6fr [id number] - [id number] Implanted:Qty: 1 on 11/18/2024 by Khoa Cornejo MD at [facility] Right: Chest [employer] 11/05/2025 [id number] / / [id number] Procedures Procedure Name Priority Date/Time Associated Diagnosis Comments RED CELL MORPHOLOGY STAT 03/21/2025 9 :23 AM CDT PLATELET ESTIMATE STAT 03/21/2025 9:2 3 AM CDT MANUAL DIFFERENTIAL STAT 03/21/2025 9 :23 AM CDT CBC WITH AUTO DIFFERENTIAL STAT 03/21/2025 9:23 AM CDT LIPASE STAT 03/21/2025 9:23 AM CDT HEPATIC FUNCTION PANEL STAT 03/21/2025 9:23 AM CDT BASIC METABOLIC PANEL STAT 03/21/2025 9:23 AM CDT CBC WITH AUTO DIFFERENTIAL STAT 03/21/2025 9:23 AM CDT RED CELL MORPHOLOGY Timed 03/19/2025 2 :28 PM CDT Small cell lung cancer, right (HC) PLATELET ESTIMATE Timed 03/19/2025 2:2 8 PM CDT Small cell lung cancer, right (HC) MANUAL DIFFERENTIAL Timed 03/19/2025 2 :28 PM CDT Small cell lung cancer, right (HC) CBC WITH AUTO DIFFERENTIAL Today 03/19/2025 2:28 PM CDT Small cell lung cancer, right (HC) COMP METABOLIC PANEL Today 03/19/2025 2:28 PM CDT Small cell lung cancer, right (HC) CBC WITH AUTO DIFFERENTIAL Today 03/19/2025 2:28 PM CDT Small cell lung cancer, right (HC) INFLUENZA A/B PCR Today 03/18/2025 7:3 9 PM CDT COVID-19 MOLECULAR Today 03/18/2025 7: 39 PM CDT RED CELL MORPHOLOGY STAT 03/18/2025 7 :26 PM CDT PLATELET ESTIMATE STAT 03/18/2025 7:2 6 PM CDT MANUAL DIFFERENTIAL STAT 03/18/2025 7 :26 PM CDT CBC WITH AUTO DIFFERENTIAL STAT 03/18/2025 7:26 PM CDT CBC WITH AUTO DIFFERENTIAL STAT 03/18/2025 7:26 PM CDT TROPONIN T (HS) ONE TIME Timed 03/18/2025 6:56 PM CDT URINALYSIS MICROSCOPIC STAT 03/18/2025 6:41 PM CDT URINE CULTURE STAT 03/18/2025 6:41 PM CDT UA W/ SEDIMENT EXAM REFLEXED PER CRITERIA STAT 03/18/2025 6:[address] CHEST ABDOMEN PELVIS W STAT 03/18/2025 5:33 PM CDT EKG 12 LEAD STAT 03/18/2025 5:02 PM CDT BLOOD CULTURE STAT 03/18/2025 4:58 PM CDT PHOSPHORUS STAT 03/18/2025 4:50 PM CDT MAGNESIUM STAT 03/18/2025 4:50 PM CDT BLOOD CULTURE STAT 03/18/2025 4:50 PM CDT LIPASE STAT 03/18/2025 4:50 PM CDT COMP METABOLIC PANEL STAT 03/18/2025 4:50 PM CDT TROPONIN T (HS) ACUTE W/2HR REFLEX STAT 03/18/2025 4:50 PM CDT PROTIME-INR STAT 03/18/2025 4:50 PM CDT GLUCOSE METER Timed 03/16/2025 12:00 PM CDT GLUCOSE METER Timed 03/16/2025 7:17 AM CDT EKG 12 LEAD Routine 03/16/2025 6:02 AM CDT CBC WITH AUTO DIFFERENTIAL Early AM 03/16/2025 5:22 AM CDT URIC ACID Early AM 03/16/2025 5:22 AM CDT LACTATE VENOUS Early AM 03/16/2025 5:22 AM CDT COMP METABOLIC PANEL Early AM 03/16/2025 5:22 AM CDT CBC WITH AUTO DIFFERENTIAL Early AM 03/16/2025 5:22 AM CDT GLUCOSE METER Timed 03/15/2025 8:42 PM CDT GLUCOSE METER Timed 03/15/2025 5:06 PM CDT EKG 12 LEAD Routine 03/15/2025 2:44 PM CDT GLUCOSE METER Timed 03/15/2025 12:29 PM CDT LACTATE VENOUS Timed 03/15/2025 8:46 AM CDT GLUCOSE METER Timed 03/15/2025 7:26 AM CDT LACTATE VENOUS Timed 03/15/2025 7:14 AM CDT CBC WITH AUTO DIFFERENTIAL Early AM 03/15/2025 4:39 AM CDT LACTATE VENOUS Early AM 03/15/2025 4:39 AM CDT URIC ACID Early AM 03/15/2025 4:39 AM CDT COMP METABOLIC PANEL Early AM 03/15/2025 4:39 AM CDT CBC WITH AUTO DIFFERENTIAL Early AM 03/15/2025 4:39 AM CDT GLUCOSE METER Timed 03/14/2025 9:47 PM CDT LACTATE VENOUS Timed 03/14/2025 6:41 PM CDT BLOOD CULTURE Today 03/14/2025 5:43 PM CDT BLOOD CULTURE Today 03/14/2025 5:41 PM CDT GLUCOSE METER Timed 03/14/2025 5:22 PM CDT ECHO TTE LIMITED WO CONTRAST W COLOR W LTD DOPPLER Routine 03/14/2025 5:06 PM CDT LACTATE VENOUS Timed 03/14/2025 12:10 PM CDT GLUCOSE METER Timed 03/14/2025 11:37 AM CDT RED CELL MORPHOLOGY Timed 03/14/2025 9 :53 AM CDT LACTATE VENOUS Today 03/14/2025 9:53 AM CDT HAPTOGLOBIN Today 03/14/2025 9:53 AM CDT RETICULOCYTES Today 03/14/2025 9:53 AM CDT BLOOD GAS,VENOUS Today 03/14/2025 9:53 AM CDT HEMOGLOBIN Today 03/14/2025 9:53 AM CDT XR CHEST 1 VIEW PORTABLE Routine 03/14/2025 9:14 AM CDT GLUCOSE METER Timed 03/14/2025 7:15 AM CDT BLOOD CULTURE STAT 03/14/2025 6:56 AM CDT BLOOD CULTURE STAT 03/14/2025 6:56 AM CDT MRSA/SA PCR Early AM 03/14/2025 5:27 AM CDT LACTATE VENOUS STAT 03/14/2025 5:27 AM CDT DRUG SCREEN RAPID URINE INHOUSE KP 03/14/2025 3:06 AM CDT URINALYSIS MICROSCOPIC STAT 03/14/2025 3:06 AM CDT UA W/ SEDIMENT EXAM REFLEXED PER CRITERIA STAT 03/14/2025 3:06 AM CDT CBC WITH AUTO DIFFERENTIAL STAT 03/14/2025 2:48 AM CDT PROCALCITONIN STAT 03/14/2025 2:48 AM CDT HEPATIC FUNCTION PANEL STAT 03/14/2025 2:48 AM CDT PROTIME-INR STAT 03/14/2025 2:48 AM CDT BASIC METABOLIC PANEL STAT 03/14/2025 2:48 AM CDT CBC WITH AUTO DIFFERENTIAL STAT 03/14/2025 2:48 AM CDT LACTATE VENOUS STAT 03/14/2025 2:48 AM CDT LACTATE VENOUS STAT 03/14/2025 1:37 AM CDT CBC WITH AUTO DIFFERENTIAL STAT 03/13/2025 11:07 PM CDT PRO-BNP STAT 03/13/2025 11:07 PM CDT LD,TOTAL STAT 03/13/2025 11:07 PM CDT LACTATE VENOUS STAT 03/13/2025 11:07 PM CDT PHOSPHORUS STAT 03/13/2025 11:07 PM CDT URIC ACID STAT 03/13/2025 11:07 PM CDT FIBRINOGEN,QUANTITAT MELE STAT 03/13/2025 11:07 PM CDT D-DIMER,QUANTITATIVE STAT 03/13/2025 11:07 PM CDT APTT STAT 03/13/2025 11:07 PM CDT PROTIME-INR STAT 03/13/2025 11:07 PM CDT COMP METABOLIC PANEL STAT 03/13/2025 11:07 PM CDT CBC WITH AUTO DIFFERENTIAL STAT 03/13/2025 11:07 PM CDT GLUCOSE METER Timed 03/13/2025 9:30 PM CDT GLUCOSE METER Timed 03/13/2025 5:04 PM CDT GLUCOSE METER Timed 03/13/2025 2:24 PM CDT EKG 12 LEAD STAT 03/13/2025 1:54 PM CDT CBC WITH AUTO DIFFERENTIAL STAT 03/12/2025 11:46 AM CDT Small cell lung cancer, right (HC) Antineoplastic chemotherapy induced anemia URIC ACID STAT 03/12/2025 11:46 AM CDT Small cell lung cancer, right (HC) [C34.91] CBC WITH AUTO DIFFERENTIAL STAT 03/12/2025 11:46 AM CDT Small cell lung cancer, right (HC) Antineoplastic chemotherapy induced anemia COMP METABOLIC PANEL STAT 03/12/2025 11:46 AM CDT NM BONE SCAN WHOLE BODY STAT 03/10/2025 3:40 PM CDT Small cell lung cancer, right (HC) [C34.91] MR HEAD BRAIN WWO STAT 03/10/2025 2:4 0 PM CDT Small cell lung cancer, right (HC) [C34.91] ANTI HBC Routine 03/04/2025 9:44 AM CDT Small cell lung cancer, right (HC) [C34.91] COMP METABOLIC PANEL STAT 03/04/2025 9:44 AM CDT Small cell lung cancer, right (HC) [C34.91] ONCOLOGY ABSOLUTE NEUTROPHIL COUNT STAT 03/04/2025 9:44 AM CDT Small cell lung cancer, right (HC) [C34.91] CT CHEST ABDOMEN PELVIS W Routine 03/02/2025 9:23 AM CDT Small cell lung cancer, right (HC) [C34.91] BASIC METABOLIC PANEL Routine 02/17/2025 12:12 PM CDT Hypertension TSH WITH REFLEX STAT 02/12/2025 10:19 AM CDT Small cell lung cancer, right (HC) ONCOLOGY ABSOLUTE NEUTROPHIL COUNT STAT 02/12/2025 10:19 AM CDT Small cell lung cancer, right (HC) COMP METABOLIC PANEL STAT 02/12/2025 10:19 AM CDT Small cell lung cancer, right (HC) TSH STAT 01/21/2025 2:36 PM CDT COMP METABOLIC PANEL STAT 01/21/2025 2:36 PM CDT ONCOLOGY ABSOLUTE NEUTROPHIL COUNT STAT 01/21/2025 2:36 PM CDT CBC WITH AUTO DIFFERENTIAL Routine 01/16/2025 1:11 PM CDT Chronic congestive heart failure, unspecified heart failure type (HC) Chronic obstructive pulmonary disease, unspecified COPD type (HC) Acute respiratory failure with hypoxia (HC) BASIC METABOLIC PANEL Routine 01/16/2025 1:11 PM CDT Chronic congestive heart failure, unspecified heart failure type (HC) Chronic obstructive pulmonary disease, unspecified COPD type (HC) Acute respiratory failure with hypoxia (HC) HEMOGLOBIN A1C Routine 01/16/2025 1:11 PM CDT Type 2 diabetes mellitus without complication, without long-term current use of insulin (HC) LIPID PANEL W REFLEX MEASURED LDL Routine 01/16/2025 1:11 PM CDT Type 2 diabetes mellitus without complication, without long-term current use of insulin (HC) URINE ALBUMIN TO CREATININE RATIO, RANDOM Routine 01/16/2025 11:23 AM CDT Type 2 diabetes mellitus without complication, without long-term current use of insulin (HC) GLUCOSE METER Routine 01/12/2025 11:37 AM CDT ECHO TTE COMPLETE WO CONTRAST Routine 01/12/2025 11:07 AM CDT GLUCOSE METER Routine 01/12/2025 7:11 AM CDT RED CELL MORPHOLOGY Timed 01/12/2025 6 :05 AM CDT PLATELET ESTIMATE Timed 01/12/2025 6:0 5 AM CDT CBC WITH AUTO DIFFERENTIAL Early AM 01/12/2025 6:05 AM CDT MAGNESIUM Early AM 01/12/2025 6:05 AM CDT BASIC METABOLIC PANEL Early AM 01/12/2025 6:05 AM CDT CBC WITH AUTO DIFFERENTIAL Early AM 01/12/2025 6:05 AM CDT GLUCOSE METER Routine 01/12/2025 1:12 AM CDT GLUCOSE METER Routine 01/11/2025 9:02 PM CDT GLUCOSE METER Routine 01/11/2025 5:11 PM CDT MAGNESIUM Timed 01/11/2025 3:20 PM CDT GLUCOSE METER Routine 01/11/2025 11:50 AM CDT GLUCOSE METER Routine 01/11/2025 8:16 AM CDT SODIUM KP 01/11/2025 6:00 AM CDT MAGNESIUM Early AM 01/11/2025 6:00 AM CDT POTASSIUM Early AM 01/11/2025 6:00 AM CDT GLUCOSE METER Routine 01/10/2025 9:32 PM CDT GLUCOSE METER Routine 01/10/2025 5:59 PM CDT GLUCOSE METER Routine 01/10/2025 12:11 PM CDT DRUG SCREEN RAPID URINE INHOUSE Today 01/10/2025 8:06 AM CDT GLUCOSE METER Routine 01/10/2025 7:30 AM CDT MAGNESIUM Early AM 01/10/2025 5:50 AM CDT POTASSIUM Early AM 01/10/2025 5:50 AM CDT GLUCOSE METER Routine 01/09/2025 8:40 PM CDT MAGNESIUM Timed 01/09/2025 8:38 PM CDT GLUCOSE METER Routine 01/09/2025 4:39 PM CDT SCAN-CARDIAC STRIP 01/09/2025 4: 24 PM CDT GLUCOSE METER Routine 01/09/2025 2:07 PM CDT XR CHEST 1 VIEW PORTABLE STAT 01/09/2025 12:46 PM CDT GLUCOSE METER Routine 01/09/2025 8:50 AM CDT PLATELET ESTIMATE Timed 01/09/2025 6:3 5 AM CDT RED CELL MORPHOLOGY Timed 01/09/2025 6 :35 AM CDT MAGNESIUM KP 01/09/2025 6:35 AM CDT BASIC METABOLIC PANEL Early AM 01/09/2025 6:35 AM CDT CBC W PLT NO DIFF Early AM 01/09/2025 6:3 5 AM CDT GLUCOSE METER Routine 01/08/2025 9:06 PM CDT SCAN-CARDIAC STRIP 01/08/2025 3: 38 PM CDT GLUCOSE METER Routine 01/08/2025 1:15 PM CDT SCAN-CARDIAC STRIP 01/08/2025 12 :29 PM CDT US VENOUS LOWER EXTREMITY BILATERAL STAT 01/08/2025 10:29 AM CDT XR CHEST 2 VIEWS PA AND LATERAL STAT 01/08/2025 9:19 AM CDT MAGNESIUM KP 01/08/2025 8:30 AM CDT TROPONIN T (HS) ONE TIME KP 01/08/2025 8:30 AM CDT CWS PATH REVIEW HEMATOLOGY STAT 01/08/2025 8:30 AM CDT RED CELL MORPHOLOGY STAT 01/08/2025 8 :30 AM CDT PLATELET ESTIMATE STAT 01/08/2025 8:3 0 AM CDT MANUAL DIFFERENTIAL STAT 01/08/2025 8 :30 AM CDT CBC WITH AUTO DIFFERENTIAL STAT 01/08/2025 8:30 AM CDT PROTIME-INR STAT 01/08/2025 8:30 AM CDT PRO-BNP STAT 01/08/2025 8:30 AM CDT BASIC METABOLIC PANEL STAT 01/08/2025 8:30 AM CDT CBC WITH AUTO DIFFERENTIAL STAT 01/08/2025 8:30 AM CDT EKG 12 LEAD UNIT PERFORMED STAT 01/08/2025 8:22 AM CDT ED FAST ULTRASOUND Routine 01/08/2025 8: 16 AM CDT RED BLOOD CELLS EA UNIT KP 01/01/2025 2:22 PM CDT RBC W/O TYPE & SCREEN KP 01/01/2025 12:37 PM CDT Other iron deficiency anemia Small cell lung cancer, right (HC) TYPE & SCREEN STAT 12/31/2024 2:22 PM CDT VITAMIN B12 Today 12/31/2024 12:33 PM CDT Small cell lung cancer, right (HC) Other iron deficiency anemia RED CELL MORPHOLOGY STAT 12/31/2024 1 2:33 PM CDT Small cell lung cancer, right (HC) Antineoplastic chemotherapy induced anemia PLATELET ESTIMATE STAT 12/31/2024 12: 33 PM CDT Small cell lung cancer, right (HC) Antineoplastic chemotherapy induced anemia MANUAL DIFFERENTIAL STAT 12/31/2024 1 2:33 PM CDT Small cell lung cancer, right (HC) Antineoplastic chemotherapy induced anemia CBC WITH AUTO DIFFERENTIAL STAT 12/31/2024 12:33 PM CDT Small cell lung cancer, right (HC) Antineoplastic chemotherapy induced anemia TSH WITH REFLEX STAT 12/31/2024 12:33 PM CDT Small cell lung cancer, right (HC) COMP METABOLIC PANEL STAT 12/31/2024 12:33 PM CDT Small cell lung cancer, right (HC) CBC WITH AUTO DIFFERENTIAL STAT 12/31/2024 12:33 PM CDT Small cell lung cancer, right (HC) Antineoplastic chemotherapy induced anemia CREATININE Early AM 12/22/2024 8:09 AM CDT SODIUM Early AM 12/22/2024 8:09 AM CDT POTASSIUM Early AM 12/22/2024 8:09 AM CDT GLUCOSE METER Routine 12/22/2024 7:38 AM CDT LC HIV-1/O/2, 4TH GENERATION Routine 02/26/2023 12:47 PM CDT Screening for HIV (human immunodeficiency virus) XR MAMMO BILAT SCREENING Routine 11/08/2021 11:17 AM CDT Visit for screening mammogram COLONOSCOPY 02/01/2018 1:28 PM CDT [place] [facility] THIN PREP PAP SCREEN IMAGED Routine 03/06/2011 10:30 AM CDT Screening for malignant neoplasm of the cervix ANTI HCV Routine 08/29/2006 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 WHITE BLOOD COUNT 5.8 4.5 - 11.0 thou/cu mm 03/21/2025 10:09 AM [facility] RED BLOOD COUNT 3.07(L) 4.00 - 5.20 mil/cu mm 03/21/2025 10:09 AM [facility] HEMOGLOBIN 8.9(L) 12.0 - 16.0 g/dL 03/21/2025 10:09 AM [facility] HEMATOCRIT 30.1(L) 33.0 - 51.0 % 03/21/2025 10:09 AM [facility] MCV 98 80 - 100 fL 03/21/2025 10:09 AM [facility] MCH 29.0 26.0 - 34.0 pg 03/21/2025 10:09 AM [facility] MCHC 29.6(L) 32.0 - 36.0 g/dL 03/21/2025 10:09 AM [facility] RDW 17.6(H) 11.5 - 15.5 % 03/21/2025 10:09 AM [facility] PLATELET COUNT 303 140 - 440 thou/cu mm 03/21/2025 10:09 AM [facility] MPV 10.4 6.5 - 11.0 fL 03/21/2025 10:09 AM CDT [facility] Blood BLOOD SPECIMEN / Unknown IV Start / Unknown 03/21/2025 9:23 AM CDT 03/21/2025 9:35 AM CDT us Marvin Jean MD HEMATOLOGY Final Resu lt Performing Organization Address City/[facility]/ZIP Co de Phone Number [facility] [address] [place] [address] * (ABNORMAL) RED CELL MORPHOLOGY (03/21/2025 9:23 AM CDT) Only the most recent of8 resultswithin the time period is included. Pathologist [facility] POLYCHROMASIA Slight 03/21/2025 10:09 AM CDT [facility] RBC COMMENT Present(A) RBC morphology appears normal, RBC morphology within normal limits for newborns. 03/21/2025 10:09 AM CDT [facility] Blood BLOOD SPECIMEN / Unknown IV Start / Unknown 03/21/2025 9:23 AM CDT 03/21/2025 9:35 AM CDT us Marvin Jean MD HEMATOLOGY Final Resu lt Performing Organization Address [facility] Co de Phone Number [facility] [address] [place] [address] * PLATELET ESTIMATE (03/21/2025 9:23 AM CDT) Only the most recent of7 resultswithin the time period is included. [facility] PLATELET ESTIMATE Adequate Adequate, No estimate 03/21/2025 10:09 AM CDT [facility] Blood BLOOD SPECIMEN / Unknown IV Start / Unknown 03/21/2025 9:23 AM CDT 03/21/2025 9:35 AM CDT us Marvin Jean MD HEMATOLOGY Final Resu lt Performing Organization Address City/[facility]/ZIP Co de Phone Number [facility] [address] [place] [address] * (ABNORMAL) MANUAL DIFFERENTIAL (03/21/2025 9:23 AM CDT) Only the most recent of5 resultswithin the time period is included. % NEUTROPHILS 70.0 % 03/21/2025 10:09 AM [facility] % LYMPHOCYTES 21.0 % 03/21/2025 10:09 AM [facility] % MONOCYTES 5.0 % 03/21/2025 10:09 AM [facility] % EOSINOPHILS 2.0 % 03/21/2025 10:09 AM [facility] % BASOPHILS 1.0 % 03/21/2025 10:09 AM [facility] % MYELOCYTES 1.0(H) <0.1 % 03/21/2025 10:09 AM [facility] NEUTROPHILS ABSOLUTE 4.1 1.7 - 7.0 thou/cu mm 03/21/2025 10:09 AM [facility] LYMPHOCYTES ABSOLUTE 1.2 0.9 - 2.9 thou/cu mm 03/21/2025 10:09 AM [facility] MONOCYTES ABSOLUTE 0.3 <0.9 thou/cu mm 03/21/2025 10:09 AM [facility] EOSINOPHILS ABSOLUTE 0.1 <0.5 thou/cu mm 03/21/2025 10:09 AM [facility] BASOPHILS ABSOLUTE 0.1 <0.3 thou/cu mm 03/21/2025 10:09 AM [facility] ABSOLUTE MYELOCYTES 0.1(H) <=0.0 thou/cu mm 03/21/2025 10:09 AM [facility] Blood BLOOD SPECIMEN / Unknown IV Start / Unknown 03/21/2025 9:23 AM CDT 03/21/2025 9:35 AM CDT us Marvin Jean MD HEMATOLOGY Final Resu lt [facility] [address] [place] [address] * LIPASE (03/21/2025 9:23 AM CDT) Only the most recent of2 resultswithin the time period is included. Pathologist [facility] LIPASE 34.5 13.0 - 60.0 IU/L 03/21/2025 10:00 AM [facility] Blood BLOOD SPECIMEN / Unknown IV Start / Unknown 03/21/2025 9:23 AM CDT 03/21/2025 9:35 AM CDT us Marvin Jean MD CHEMISTRY Final Resu lt [facility] [address] [place] [address] * (ABNORMAL) HEPATIC FUNCTION PANEL (03/21/2025 9:23 AM CDT) Only the most recent of2 resultswithin the time period is included. [facility] ALBUMIN 3.7(L) 4.0 - 4.9 g/dL 03/21/2025 10:00 AM [facility] PROTEIN,TOTAL 6.2 6.0 - 8.0 g/dL 03/21/2025 10:00 AM [facility] BILIRUBIN,TOTAL 0.4 0.0 - 1.2 mg/dL 03/21/2025 10:00 AM [facility] BILIRUBIN,DIRECT 0.2 0.0 - 0.2 mg/dL 03/21/2025 10:00 AM [facility] BILIRUBIN,INDIRE CT 0.2 0.2 - 0.8 mg/dL 03/21/2025 10:00 AM [facility] ALK PHOSPHATASE 274(H) 35 - 104 IU/L 03/21/2025 10:00 AM [facility] ALT (SGPT) 98(H) 10 - 35 IU/L 03/21/2025 10:00 AM [facility] AST (SGOT) 94(H) 10 - 35 IU/L 03/21/2025 10:00 AM [facility] Blood BLOOD SPECIMEN / Unknown IV Start / Unknown 03/21/2025 9:23 AM CDT 03/21/2025 9:35 AM CDT us Marvin Jean MD CHEMISTRY Final Resu lt [facility] [address] [place] [address] * (ABNORMAL) BASIC METABOLIC PANEL (03/21/2025 9:23 AM CDT) Only the most recent of7 resultswithin the time period is included. SODIUM 139 136 - 145 mmol/L 03/21/2025 10:00 AM [facility] POTASSIUM 3.4(L) 3.5 - 5.1 mmol/L 03/21/2025 10:00 AM [facility] CHLORIDE 100 98 - 107 mmol/L 03/21/2025 10:00 AM [facility] CO2,TOTAL 26 22 - 29 mmol/L 03/21/2025 10:00 AM [facility] ANION GAP 13 5 - 18 03/21/2025 10:00 AM [facility] GLUCOSE 204(H) 70 - 99 mg/dL 03/21/2025 10:00 AM [facility] CALCIUM 9.4 8.8 - 10.4 mg/dL 03/21/2025 10:00 AM [facility] Comment: Reference ranges for this test were updated on 05/13/2024 to reflect our healthy population more accurately. Reference range changes are not retroactively applied to results, but previous results using the same methodology can be interpreted in the context of the new reference range. BUN 22 8 - 23 mg/dL 03/21/2025 10:00 AM [facility] CREATININE 0.76 0.50 - 0.90 mg/dL 03/21/2025 10:00 AM [facility] BUN/CREAT RATIO 29(H) 10 - 20 10:00 AM [facility] eGFR 90(L) >90 mL/min/1. 73m2 03/21/2025 10:00 AM [facility] Comment:As of 2021, eG FR is calculated by the CKD-EPI creatinine equation without race adjustment. eGFR can be influenced by muscle mass, exercise, and diet. The reported eGFR is an estimation only and is only applicable if the renal function is stable. Blood BLOOD SPECIMEN / Unknown IV Start / Unknown 03/21/2025 9:23 AM CDT 03/21/2025 9:35 AM CDT us Marvin Jean MD CHEMISTRY Final Resu lt [facility] [address] [place] [address] * (ABNORMAL) COMP METABOLIC PANEL (03/19/2025 2:28 PM CDT) Only the most recent of10 resultswithin the time period is included. SODIUM 142 136 - 145 mmol/L 03/19/2025 2:53 PM [facility] POTASSIUM 3.3(L) 3.5 - 5.1 mmol/L 03/19/2025 2:53 PM [facility] CHLORIDE 97(L) 98 - 107 mmol/L 03/19/2025 2:53 PM [facility] CO2,TOTAL 30(H) 22 - 29 mmol/L 03/19/2025 2:53 PM [facility] ANION GAP 15 5 - 18 03/19/2025 2:53 PM [facility] GLUCOSE 153(H) 70 - 99 mg/dL 03/19/2025 2:53 PM [facility] CALCIUM 9.1 8.8 - 10.4 mg/dL 03/19/2025 2:53 PM [facility] Comment: Reference ranges for this test were updated on 05/13/2024 to reflect our healthy population more accurately. Reference range changes are not retroactively applied to results, but previous results using the same methodology can be interpreted in the context of the new reference range. BUN 21 8 - 23 mg/dL 03/19/2025 2:53 PM [facility] CREATININE 0.70 0.50 - 0.90 mg/dL 03/19/2025 2:53 PM [facility] BUN/CREAT RATIO 30(H) 10 - 20 2:53 PM [facility] eGFR >90 >90 mL/min/1. 73m2 03/19/2025 2:53 PM [facility] Comment:As of 2021, eG FR is calculated by the CKD-EPI creatinine equation without race adjustment. eGFR can be influenced by muscle mass, exercise, and diet. The reported eGFR is an estimation only and is only applicable if the renal function is stable. ALBUMIN 3.8(L) 4.0 - 4.9 g/dL 03/19/2025 2:53 PM [facility] PROTEIN,TOTAL 6.7 6.0 - 8.0 g/dL 03/19/2025 2:53 PM [facility] BILIRUBIN,TOTAL 0.5 0.0 - 1.2 mg/dL 03/19/2025 2:53 PM [facility] ALK PHOSPHATASE 299(H) 35 - 104 IU/L 03/19/2025 2:53 PM [facility] ALT (SGPT) 124(H) 10 - 35 IU/L 03/19/2025 2:53 PM [facility] AST (SGOT) 80(H) 10 - 35 IU/L 03/19/2025 2:53 PM [facility] Blood BLOOD SPECIMEN / Unknown Line/Port / Unknown 03/19/2025 2:28 PM CDT 03/19/2025 2:33 PM CDT us Rayn León MD CHEMISTRY Final Resul t [facility] [address] [place] [address] * COVID-19 MOLECULAR (03/18/2025 7:39 PM CDT) [facility] COVID 19 [place] MOLECULAR Not detected Not detected 03/18/2025 8:51 PM CDT [facility] TESTING LABORATORY [facility] 03/18/2025 8:51 PM CDT [facility] Comment:Specimen submitted t o [facility] for testing. Other SPECIMEN FROM NASOPHARYNGEAL STRUCTURE / Unknown Non-Blood / Unknown 03/18/2025 7:39 PM CDT 03/18/2025 7:43 PM CDT Rohith Bran MD MICROBIOLOGY Final Result [facility] [address] [place] [address] * INFLUENZA A/B PCR (03/18/2025 7:39 PM CDT) [facility] INFLUENZA A PCR NOT Detected 03/18/2025 8:51 PM CDT [facility] INFLUENZA B PCR NOT Detected 03/18/2025 8:51 PM CDT [facility] Other SPECIMEN FROM NASOPHARYNGEAL STRUCTURE / Unknown Non-Blood / Unknown 03/18/2025 7:39 PM CDT 03/18/2025 7:43 PM CDT Rohith Bran MD MICROBIOLOGY Final Result [facility] [address] [place] [address] * (ABNORMAL) TROPONIN T (HS) ONE TIME (03/18/2025 6:56 PM CDT) Only the most recent of2 resultswithin the time period is included. [facility] TROPONIN T HS 20(H) 6-10 ng/L ng/L 03/18/2025 7:25 PM CDT [facility] Blood BLOOD SPECIMEN / Unknown Venipuncture / Unknown 03/18/2025 6:56 PM CDT 03/18/2025 7:05 PM CDT Rohith Bran MD CHEMISTRY Final Result Performing Organization Address [facility] de Phone Number [facility] [address] [place] [address] * (ABNORMAL) URINALYSIS MICROSCOPIC (03/18/2025 6:41 PM CDT) Only the most recent of2 resultswithin the time period is included. RBC 0-2 0-2, None Seen /HPF 03/18/2025 7:13 PM CDT [facility] WBC 0-2 0-2, 3-5, None Seen /HPF 03/18/2025 7:13 PM CDT [facility] BACTERIA Moderate(A ) None Seen, Rare, Few Bacteria/ HPF 03/18/2025 7:13 PM CDT [facility] EPITHELIAL CELLS Few None Seen, Few Epi/HPF 03/18/2025 7:13 PM CDT [facility] YEAST Present(A) (none) 03/18/2025 7:13 PM CDT [facility] Urine URINE SPECIMEN / Unknown Non-Blood / Unknown 03/18/2025 6:41 PM CDT 03/18/2025 6:44 PM CDT Rohith Bran MD URINE Final Result Performing Organization Address [facility] Co de Phone Number [facility] [address] [place] [address] * Urine Culture (03/18/2025 6:41 PM CDT) CULTURE <10,000 CFU/mL multiple organisms 03/19/2025 3:01 PM CDT [facility] Urine URINE SPECIMEN / Unknown Non-Blood / Unknown 03/18/2025 6:41 PM CDT 03/18/2025 6:44 PM CDT Rohith Bran MD MICROBIOLOGY Final Result Performing Organization Address City/[facility]/ZIP Co de Phone Number [facility] [address] [place] [address], [place] * (ABNORMAL) Urinalysis W Reflex Microscopic if Positive (03/18/2025 6:41 PM CDT) Only the most recent of2 resultswithin the time period is included. COLOR Yellow Yellow Color 03/18/2025 7:08 PM [facility] CLARITY Clear Clear Clarity 03/18/2025 7:08 PM [facility] SPECIFIC GRAVITY,URINE <=1.005(A) 1.010, 1.015, 1.020, 1.025 03/18/2025 7:08 PM [facility] PH,URINE 6.5 6.0, 7.0, 8.0, 5.5, 6.5, 7.5, 8.5 03/18/2025 7:08 PM [facility] UROBILINOGEN, QUALITATIVE Normal Normal EU/dl 03/18/2025 7:08 PM [facility] PROTEIN, URINE Negative Negative mg/dL 03/18/2025 7:08 PM [facility] GLUCOSE, URINE >=1000(A) Negative mg/dL 03/18/2025 7:08 PM [facility] KETONES,URINE Negative Negative mg/dL 03/18/2025 7:08 PM [facility] BILIRUBIN,URI NE Negative Negative 03/18/2025 7:08 PM [facility] OCCULT BLOOD,URINE Negative Negative 03/18/2025 7:08 PM [facility] NITRITE Negative Negative 03/18/2025 7:08 PM [facility] LEUKOCYTE ESTERASE Negative Negative 03/18/2025 7:08 PM [facility] Urine URINE SPECIMEN / Unknown Non-Blood / Unknown 03/18/2025 6:41 PM CDT 03/18/2025 6:44 PM CDT us Rohith Bran MD URINE Final Result [facility] [address] [place] [address] * CT CHEST ABDOMEN PELVIS W (03/18/2025 5:33 PM CDT) Only the most recent of2 resultswithin the time period is included. Anatomical Region Laterality Modality Abdomen, Pelvis, AORTA, LIVER, SPLEEN, CHEST Computed Tomography 03/18/2025 6:22 PM CDT Impressions 03/18/2025 6:22 PM CDT 1. General worsening of neoplastic disease compared to the prior study from 3 weeks ago with enlarging right lung and liver masses. 2. Persistent irregular wall thickening of the sigmoid colon. This could represent a malignancy or chronic diverticulitis. 3. No other significant changes compared to the prior exam. No other specific finding to explain sepsis. Please note that all CT scans at this facility use dose modulation, iterative reconstruction, and/or weight-based dosing when appropriate to reduce radiation dose to as low as reasonably achievable. Dictated by Dariel Etienne MD @ 03/18/2025 6:22:09 PM (Electronically Signed) Narrative 03/18/2025 6:22 PM CDT For Patients: As a result of the Century Cures Act, medical imaging exams and procedure reports are released immediately into your electronic medical record. You may view this report before your referring provider. If you have questions, please contact your health care provider. INDICATION: Sepsis. TECHNIQUE: CT chest, abdomen and pelvis acquired 100 cc Omnipaque 300 IV contrast. COMPARISON: 03/02/2025. FINDINGS: CHEST: Cardiovascular structures: Moderate cardiomegaly. Thoracic aorta and main pulmonary artery are normal in caliber. Mediastinum and eliazar: Stable mediastinal right hilar lymphadenopathy. Lungs and pleura: Right hilar masses and nodules have definitely increased in size since the recent prior exam. Chest wall and axilla: Stable right breast mass. Bones: No suspicious bone lesions. Unremarkable for age. ABDOMEN AND PELVIS: Liver: Innumerable liver masses have generally increased in size. Gallbladder and bile ducts: Unremarkable. Pancreas: Unremarkable. Spleen: Unremarkable. Adrenal glands: Stable right adrenal mass. Kidneys: Unremarkable. GI tract: Segment of irregular wall thickening in the sigmoid colon similar to the prior exam. Colonic diverticulosis. Unremarkable small bowel. Vascular structures: Unremarkable. Lymph nodes: Unremarkable. Peritoneum/Retroperitoneum/Abdominal Wall: Unremarkable. No free air or significant free fluid. Pelvic Organs: Unremarkable. Bones and superficial soft tissues: No suspicious bone lesions. Unremarkable for age. Procedure Note Dariel Etienne MD - 03/18/2025 For Patients: As a result of the Cures Act, medical imagingexams and procedure reports are released immediately into your electronicmedical record. You may view this report before your referring provider.If you have questions, please contact your health care provider. INDICATION: Sepsis. TECHNIQUE: CT chest, abdomen and pelvis acquired 100 cc Omnipaque 300 IV contrast. COMPARISON: 03/02/2025. FINDINGS: CHEST: Cardiovascular structures: Moderate cardiomegaly. Thoracic aorta and mainpulmonary artery are normal in caliber. Mediastinum and eliazar: Stable mediastinal right hilar lymphadenopathy. Lungs and pleura: Right hilar masses and nodules have definitely increasedin size since the recent prior exam. Chest wall and axilla: Stable right breast mass. Bones: No suspicious bone lesions. Unremarkable for age. ABDOMEN AND PELVIS: Liver: Innumerable liver masses have generally increased in size. Gallbladder and bile ducts: Unremarkable. Pancreas: Unremarkable. Spleen: Unremarkable. Adrenal glands: Stable right adrenal mass. Kidneys: Unremarkable. GI tract: Segment of irregular wall thickening in the sigmoid colonsimilar to the prior exam. Colonic diverticulosis. Unremarkable smallbowel. Vascular structures: Unremarkable. Lymph nodes: Unremarkable. Peritoneum/Retroperitoneum/Abdominal Wall: Unremarkable. No free air orsignificant free fluid. Pelvic Organs: Unremarkable. Bones and superficial soft tissues: No suspicious bone lesions.Unremarkable for age. IMPRESSION: 1. General worsening of neoplastic disease compared to the prior studyfrom 3 weeks ago with enlarging right lung and liver masses. 2. Persistent irregular wall thickening of the sigmoid colon. This couldrepresent a malignancy or chronic diverticulitis. 3. No other significant changes compared to the prior exam. No otherspecific finding to explain sepsis. Please note that all CT scans at this facility use dose modulation,iterative reconstruction, and/or weight-based dosing when appropriate toreduce radiation dose to as low as reasonably achievable. Dictated by Dariel Etienne MD @ 03/18/2025 6:22:09 PM (Electronically Signed) Rohith Bran MD CT Final Result * EKG 12 LEAD (03/18/2025 5:02 PM CDT) Only the most recent of4 resultswithin the time period is included. Pathologist [facility] Interpretation Normal sinus rhythm Left ventricular hypertrophy with repolarization abnormality Prolonged QT Abnormal ECG When compared with ECG of 16-Mar-2025 06:02, ST now depressed in Anterior leads Nonspecific T wave abnormality now evident in Lateral leads no STEMI BEYOND NOW Ventricular Rate 92 BPM BEYOND NOW Atrial Rate 92 BPM BEYOND NOW P-R Interval 132 ms BEYOND NOW QRS Duration 84 ms BEYOND NOW QT 412 ms BEYOND NOW QTc 509 ms BEYOND NOW P Higbee 49 degrees BEYOND NOW R Higbee 28 degrees BEYOND NOW T Higbee 69 degrees BEYOND NOW 03/18/2025 5:02 PM CDT 03/18/2025 6:56 PM CDT Rohith Bran MD EKG ORD Final Result Performing Organization Address City/[facility] Co de Phone Number BEYOND NOW [place], [place] * BLOOD CULTURE (03/18/2025 4:58 PM CDT) Only the most recent of6 resultswithin the time period is included. [facility] CULTURE No Growth. 03/24/2025 4:20 AM CDT [facility] Blood BLOOD SPECIMEN / Unknown Line/Port / Unknown 03/18/2025 4:58 PM CDT 03/18/2025 5:03 PM CDT Narrative [facility] - 03/24/2025 4:20 AM CDT Low volume blood culture received; possible false negative culture. Rohith Bran MD MICROBIOLOGY Final Result Performing Organization Address City/[facility]/ZIP Co de Phone Number [facility] [address] [place] [address] * (ABNORMAL) TROPONIN T (HS) ACUTE W/2HR REFLEX (03/18/2025 4:50 PM CDT) [facility] TROPONIN T HS 20(H) 6-10 ng/L ng/L 03/18/2025 5:28 PM CDT [facility] Blood BLOOD SPECIMEN / Unknown Line/Port / Unknown 03/18/2025 4:50 PM CDT 03/18/2025 5:03 PM CDT [facility] [place] [facility] - 03/18/2025 5:28 PM CDT hs-cTnT (Elecsys Troponin T Gen 5) concentration (s) above the sex-specific 99th percentile (16 ng/L or greater for males or 11 ng/L or greater for females) are indicative of myocardial injury. If initial hs-cTnT <=100 ng/L at presentation, a 0h/2h ABSOLUTE (ng/L) delta change (rising or falling) of >=10 ng/L suggests a significant change, whereas a 0h/2h delta change <=3 ng/L suggests no significant change. If initial hs-cTnT >100 ng/L at presentation, a 0h/2h/ RELATIVE (percent, %) delta change of 20% is suggested to distinguish patients with acute vs. chronic myocardial injury. There are multiple etiologies that can cause hs-cTnT increases above the 99th percentile (myocardial injury) other than acute myocardial infarction. Clinical context and careful clinical evaluation are critical for diagnosis and risk-stratification. The diagnosis of acute myocardial infarction requires a rising and/or falling pattern in hs-cTnT concentrations with at least one value above the sex-specific 99th percentile PLUS at least one of the following clinical criteria: ischemic symptoms, new or presumed new significant ST-T wave changes or new LBBB, development of pathological Q waves, imaging evidence of new loss of viable myocardium or new regional wall motion abnormality, or identification of intracoronary atherothrombosis or an acute angiographic culprit on coronary angiography. In appropriate low-risk patients with a non-ischemic electrocardiogram without active chest pain with a symptom onset >3-hours without recurrence, a single initial hs-cTnT<6 ng/L identifies patient with a very low risk in emergency department patient population. us Rohith Bran MD CHEMISTRY Final Result [facility] [address] [place] [address] * Protime - INR (03/18/2025 4:50 PM CDT) Only the most recent of4 resultswithin the time period is included. INR 0.9 <1.3 03/18/2025 5:11 PM CDT [facility] PROTIME 10.8 10.6 - 12.4 sec 03/18/2025 5:11 PM CDT [facility] Blood BLOOD SPECIMEN / Unknown Line/Port / Unknown 03/18/2025 4:50 PM CDT 03/18/2025 5:03 PM CDT [facility] [place] [facility] - 03/18/2025 5:11 PM CDT Therapeutic Range 2.0-3.0 for most anticoagulated patients 2.5-3.5 or 4.0 for high risk patients The INR is only used for patients on stable oral anticoagulant therapy. It makes no significant contribution to the diagnosis or treatment of patients whose Protime is prolonged for other reasons. INR results are increased when heparin levels exceed 1.0 U/mL, which corresponds to an aPTT >125 seconds if the patient is on UFH. Rohith Bran MD HEMATOLOGY Final Result Performing Organization Address [facility] Co de Phone Number [facility] [address] [place] [address] * (ABNORMAL) PHOSPHORUS (03/18/2025 4:50 PM CDT) Only the most recent of2 resultswithin the time period is included. PHOSPHORUS 5.0(H) 2.5 - 4.5 mg/dL 03/18/2025 5:44 PM CDT [facility] Blood BLOOD SPECIMEN / Unknown Line/Port / Unknown 03/18/2025 4:50 PM CDT 03/18/2025 5:03 PM CDT Rohith Bran MD CHEMISTRY Final Result Performing Organization Address [facility]/ZIP Co de Phone Number [facility] [address] [place] [address] * MAGNESIUM (03/18/2025 4:50 PM CDT) Only the most recent of8 resultswithin the time period is included. MAGNESIUM 1.9 1.6 - 2.4 mg/dL 03/18/2025 5:44 PM CDT [facility] Blood BLOOD SPECIMEN / Unknown Line/Port / Unknown 03/18/2025 4:50 PM CDT 03/18/2025 5:03 PM CDT Rohith Bran MD CHEMISTRY Final Result [facility] [address] [place] [address] * (ABNORMAL) GLUCOSE METER (03/16/2025 12:00 PM CDT) Only the most recent of31 resultswithin the time period is included. GLUCOSE METER 376(H) 65 - 100 mg/dL 03/16/2025 12:01 PM CDT [facility] Blood BLOOD SPECIMEN / Unknown 03/16/2025 12:00 PM CDT 03/16/2025 12:01 PM CDT Melissa Guardado MD CHEMISTRY Final Result [facility] [address] [place] [address], * LACTATE VENOUS (03/16/2025 5:22 AM CDT) Only the most recent of11 resultswithin the time period is included. LACTATE,VENOUS 1.6 0.5 - 2.0 mmol/L 03/16/2025 5:50 AM CDT [facility] Blood BLOOD SPECIMEN / Unknown Non-Lab Venipuncture / Unknown 03/16/2025 5:22 AM CDT 03/16/2025 5:31 AM CDT Estiven Brunner MD, PhD CHEMISTRY F inal Result Performing Organization Address City/[facility]/ZIP Co de Phone Number [facility] [address] [place] [id number], [place] * URIC ACID (03/16/2025 5:22 AM CDT) Only the most recent of4 resultswithin the time period is included. URIC ACID 2.8 2.4 - 5.7 mg/dL 03/16/2025 5:54 AM CDT [facility] Blood BLOOD SPECIMEN / Unknown Non-Lab Venipuncture / Unknown 03/16/2025 5:22 AM CDT 03/16/2025 5:31 AM CDT Estiven Brunner MD, PhD CHEMISTRY F inal Result Performing Organization Address City/[facility] Co de Phone Number [facility] [address] [place] [id number], [place] * ECHO TTE LIMITED WO CONTRAST W COLOR W LTD DOPPLER (03/14/2025 5:06 PM CDT) AORTIC VALVE MEAN PG 5 mmHg EJECTION FRACTION 35 % LVEDD 5.5 cm EJECTION FRACTION 30 - 35% Anatomical Region Laterality Modality Ultrasound 03/14/2025 4:04 PM CDT Narrative 03/14/2025 5:31 PM CDT ECHOCARDIOGRAM JESSICA SWEENEY : 1965 60 years Study Date: 03/14/2025 4:04:01 PM Gender: F BP: 131/65 mmHg Height: 158.00 cm BSA: 1.79 m Weight: 77.00 kg Tech: Referring MD: JESUS MOREJON Site: [facility] Reading Location: [facility] Patient Location: Inpatient. Procedure: Limited 2D , Color Doppler and Limited Spectral Doppler. Indication for study: HF Cardiac Rhythm: Sinus tachycardia.Study quality: Good. Final Impressions: Limited Echocardiogram performed 1. Normal LV size, normal wall thickness, moderately severely reduced global systolic function with an estimated EF of ~30%. 2. The mitral valve is sclerotic, moderate to severe mitral regurgitation. Mitral stenosis with severely increased mean gradient of 11.0 mmHg at a heart rate of 128. 3. The tricuspid valve is normal, mild-moderate tricuspid regurgitation. 4. The inferior vena cava is normal sized, respiratory size variation less than 50%. 5. The aortic valve is normal, no stenosis and no regurgitation. 6. Right ventricular cavity size is not well visualized, global systolic RV function is moderately reduced. Comparison Compared to prior exam images and report: - The left ventricular function has decreased. - Mitral stenosis has increased - with significant higher HR. - Mitral regurgitation has increased. Chamber Sizes and Function Normal left ventricular size, normal wall thickness, moderately severely reduced global systolic function with an estimated EF of 30 - 35%. Right ventricular cavity size is not well visualized, global systolic RV function is moderately reduced. Valves, RV Pressures and Diastolic Function The aortic valve is normal in structure, no stenosis and no regurgitation. The mitral valve is sclerotic, moderate to severe mitral regurgitation. The mitral valve peak velocity is 2.02 m/s and the mean gradient is 11.0 mmHg. A severely increased gradient of 11.0 mmHg at a heart rate of 128 is calculated across the mitral valve using continuous Doppler examination. The tricuspid valve is normal in structure, mild-moderate tricuspid regurgitation. Masses, Effusion, Shunts There is no pericardial effusion. The inferior vena cava is normal sized, respiratory size variation less than 50%. MEASUREMENTS AND CALCULATIONS 2-D Measurements and LV Function: LVID (d) 5.5 cm LV FS% (2D) 15 % LVID (s) 4.7 cm LVOT diameter 2.0 cm IVS (d) 0.9 cm HR 127 bpm LVPW (d) 1.0 cm Ao Sinus ULN 3.7 cm Asc Ao ULN 3.8 cm Aortic Valve: Vmax 1.4 m/s MARLENE (V) 2.82 cm VTI 0.25 m MARLENE (I) 2.47 cm LVOT V max 1.3 m/s Max PG 8 mmHg LVOT VTI 0.20 m Mean PG 5 mmHg SV 61 ml Dim Index 0.79 SV index 34 ml/m CO 7.8 l/min CI 4.4 l/min/m Mitral Valve: MV Mean G 11 mmHg Tricuspid Valve and estimated PA pressures: TAPSE 1.5 cm . This study was interpreted by an [facility] accredited facility. Final Procedure Note Kit Robertson MD - 03/14/2025 ECHOCARDIOGRAM JESSICA SWEENEY : 1965 60 years Study Date: 03/14/2025 4:04:01 PM Gender: F BP: 131/65 mmHg Height: 158.00 cm BSA: 1.79 m Weight: 77.00 kg Tech: Referring MD: JESSU MOREJON Site: [facility] Reading Location: [facility] Patient Location: Inpatient. Procedure: Limited 2D , Color Doppler and Limited Spectral Doppler. Indication for study: HF Cardiac Rhythm: Sinus tachycardia.Study quality: Good. Final Impressions: Limited Echocardiogram performed 1. Normal LV size, normal wall thickness, moderately severely reducedglobal systolic function with an estimated EF of ~30%. 2. The mitral valve is sclerotic, moderate to severe mitralregurgitation. Mitral stenosis with severely increased mean gradient of11.0 mmHg at a heart rate of 128. 3. The tricuspid valve is normal, mild-moderate tricuspidregurgitation. 4. The inferior vena cava is normal sized, respiratory size variationless than 50%. 5. The aortic valve is normal, no stenosis and no regurgitation. 6. Right ventricular cavity size is not well visualized, global systolicRV function is moderately reduced. Comparison Compared to prior exam images and report: - The left ventricular function has decreased. - Mitral stenosis has increased - with significant higher HR. - Mitral regurgitation has increased. Chamber Sizes and Function Normal left ventricular size, normal wall thickness, moderately severelyreduced global systolic function with an estimated EF of 30 - 35%. Rightventricular cavity size is not well visualized, global systolic RVfunction is moderately reduced. Valves, RV Pressures and Diastolic Function The aortic valve is normal in structure, no stenosis and no regurgitation.The mitral valve is sclerotic, moderate to severe mitral regurgitation.The mitral valve peak velocity is 2.02 m/s and the mean gradient is 11.0mmHg. A severely increased gradient of 11.0 mmHg at a heart rate of 128 iscalculated across the mitral valve using continuous Doppler examination. The tricuspid valve is normal in structure, mild-moderate tricuspidregurgitation. Masses, Effusion, Shunts There is no pericardial effusion. The inferior vena cava is normal sized,respiratory size variation less than 50%. MEASUREMENTS AND CALCULATIONS 2-D Measurements and LV Function: LVID (d) 5.5 cm LV FS% (2D) 15 % LVID (s) 4.7 cm LVOT diameter 2.0 cm IVS (d) 0.9 cm HR 127 bpm LVPW (d) 1.0 cm Ao Sinus ULN 3.7 cm Asc Ao ULN 3.8 cm Aortic Valve: Vmax 1.4 m/s MARLENE (V) 2.82 cm VTI 0.25 m MARLENE (I) 2.47 cm LVOT V max 1.3 m/s Max PG 8 mmHg LVOT VTI 0.20 m Mean PG 5 mmHg SV 61 ml Dim Index 0.79 SV index 34 ml/m CO 7.8 l/min CI 4.4 l/min/m Mitral Valve: MV Mean G 11 mmHg Tricuspid Valve and estimated PA pressures: TAPSE 1.5 cm . This study was interpreted by an [facility] accredited facility. Final us Jesus Morejon TRANSFORMER STOCK CLERK ECHO ORD Final Re sult * (ABNORMAL) Hemoglobin AM (03/14/2025 9:53 AM CDT) HEMOGLOBIN 9.2(L) 12.0 - 16.0 g/dL 03/14/2025 11:30 AM CDT [facility] MCV 100 80 - 100 fL 03/14/2025 11:30 AM CDT [facility] Blood BLOOD SPECIMEN / Unknown Non-Lab Venipuncture / Unknown 03/14/2025 9:53 AM CDT 03/14/2025 10:01 AM CDT us Irvin Moreno MD HEMATOLOGY Final Res ult [facility] [address] [place] [address], [place] * (ABNORMAL) BLOOD GAS,VENOUS (03/14/2025 9:53 AM CDT) PH, VENOUS 7.34 7.32 - 7.43 03/14/2025 10:04 AM CDT [facility] PCO2, VENOUS 53(H) 41 - 51 mmHg 03/14/2025 10:04 AM CDT [facility] PO2, VENOUS 41(H) 35 - 40 mmHg 03/14/2025 10:04 AM CDT [facility] HCO3,VENOUS 29 22 - 29 mmol/L 03/14/2025 10:04 AM CDT [facility] BASE EXCESS, VENOUS, POCT 1.8 -2.0 - 3.0 03/14/2025 10:04 AM CDT [facility] O2 SATURATION, VENOUS 68(L) 70 - 75 % 03/14/2025 10:04 AM CDT [facility] PATIENT TEMPERATURE 37.0 Degrees C 03/14/2025 10:04 AM CDT [facility] Blood VENOUS BLOOD SPECIMEN / Unknown Non-Lab Venipuncture / Unknown 03/14/2025 9:53 AM CDT 03/14/2025 10:01 AM CDT us Irvin Moreno MD CHEMISTRY Final Res ult [facility] [address] [place] [address], * (ABNORMAL) Reticulocyte count AM (03/14/2025 9:53 AM CDT) RETIC% 2.7(H) 0.5 - 1.5 % 03/14/2025 11:30 AM CDT [facility] RETIC (ABSOLUTE) 0.09(H) 0.03 - 0.08 mil/cu mm 03/14/2025 11:30 AM CDT [facility] Blood BLOOD SPECIMEN / Unknown Non-Lab Venipuncture / Unknown 03/14/2025 9:53 AM CDT 03/14/2025 10:01 AM CDT Irvin Moreno MD HEMATOLOGY Final Res ult [facility] [address] [place] [id number], [place] * Haptoglobin AM (03/14/2025 9:53 AM CDT) Haptoglobin 192 30 - 200 mg/dL 03/14/2025 11:23 AM CDT [facility] Blood BLOOD SPECIMEN / Unknown Non-Lab Venipuncture / Unknown 03/14/2025 9:53 AM CDT 03/14/2025 10:01 AM CDT Irvin Moreno MD CHEMISTRY Final Res ult Performing Organization Address City/[facility] Co de Phone Number [facility] [address] [place] [id number], [place] * XR Chest 1 view portable (03/14/2025 9:14 AM CDT) Only the most recent of2 resultswithin the time period is included. Anatomical Region Laterality Modality HEART, THORAX, CHEST Digital Rad iography 03/14/2025 9:31 AM CDT Narrative 03/14/2025 9:31 AM CDT For Patients: As a result of the Cures Act, medical imaging exams and procedure reports are released immediately into your electronic medical record. You may view this report before your referring provider. If you have questions, please contact your health care provider. Indication: Eval lung infiltrate. Technique: Chest 1 view. Comparison: 01/09/2025. Findings/Impression: Heart and mediastinum: Stable cardiomegaly. Unremarkable mediastinum. Lungs and pleural spaces: New right hilar masslike infiltrate suspicious for pneumonia. Unchanged generalized interstitial edema. No significant effusion. No pneumothorax. Lines and tubes: Port catheter unchanged. Dictated by Dariel Etienne MD @ Mar 14 2025 9:31AM (Electronically Signed) [email or web address] Procedure Note Dariel Etienne MD - 03/14/2025 For Patients: As a result of the Century Cures Act, medical imagingexams and procedure reports are released immediately into your electronicmedical record. You may view this report before your referring provider.If you have questions, please contact your health care provider. Indication: Eval lung infiltrate. Technique: Chest 1 view. Comparison: 01/09/2025. Findings/Impression: Heart and mediastinum: Stable cardiomegaly. Unremarkable mediastinum. Lungs and pleural spaces: New right hilar masslike infiltrate suspiciousfor pneumonia. Unchanged generalized interstitial edema. No significanteffusion. No pneumothorax. Lines and tubes: Port catheter unchanged. Dictated by Dariel Etienne MD @ Mar 14 2025 9:31AM (Electronically Signed) [email or web address] Irvin Moreno MD GENERAL IMAGING Final Res ult * MRSA/SA PCR (03/14/2025 5:27 AM CDT) [facility] MRSA DNA PCR Negative Negative 03/14/2025 7:24 AM CDT [facility] STAPHYLOCOCCUS AUREUS PCR Negative Negative 03/14/2025 7:24 AM CDT [facility] Other SPECIMEN FROM INTERNAL NOSE / Unknown Non-Blood / Unknown 03/14/2025 5:27 AM CDT 03/14/2025 5:49 AM CDT Narrative [facility] - 03/14/2025 7:24 AM CDT Test result does not preclude MRSA or SA nasal colonization. us Brenden Osuna MD MICROBIOLOGY Final Result [facility] [address] [place] [address], * (ABNORMAL) Drug screen, rapid urine inhouse TODAY (03/14/2025 3:06 AM CDT) Only the most recent of2 resultswithin the time period is included. Pathologist [facility] THC METABOLITES,ANI L Not Detected Not Detected 03/14/2025 5:26 PM CDT [facility] PCP,QUAL Not Detected Not Detected 03/14/2025 5:26 PM CDT [facility] COCAINE,QUAL Not Detected Not Detected 03/14/2025 5:26 PM CDT [facility] METHAMPHETAMINE , QUALITATIVE Non-negative , consider further testing if indicated(A) Not Detected 03/14/2025 5:26 PM CDT [facility] OPIATES,QUAL Not Detected Not Detected 03/14/2025 5:26 PM CDT [facility] AMPHETAMINE, QUALITATIVE Non-negative , consider further testing if indicated(A) Not Detected 03/14/2025 5:26 PM CDT [facility] BENZODIAZEPINES ,QUAL Non-negative , consider further testing if indicated(A) Not Detected 03/14/2025 5:26 PM CDT [facility] TRICYCLICS,QUAL Not Detected Not Detected 03/14/2025 5:26 PM CDT [facility] METHADONE, QUALITATIVE Not Detected Not Detected 03/14/2025 5:26 PM CDT [facility] BARBITURATES,QU AL Not Detected Not Detected 03/14/2025 5:26 PM CDT [facility] OXYCODONE, QUALITATIVE Not Detected Not Detected 03/14/2025 5:26 PM CDT [facility] BUPRENORPHINE, QUALITATIVE Not Detected Not Detected 03/14/2025 5:26 PM CDT [facility] Urine URINE SPECIMEN / Unknown Non-Blood / Unknown 03/14/2025 3:06 AM CDT 03/14/2025 3:[address] [facility] - 03/14/2025 5:26 PM CDT Please Note: This is a screening test only, all results are unconfirmed and should be used for medical purposes only. Unconfirmed results must not be used for non-medical purposes (e.g., employment testing, legal testing). Suggest analyte specific confirmation for all non-negative results. Specimens will be held for 24 hours if additional testing is needed. The following threshold concentrations are used for this analysis: Drug Screening Threshold Buprenorphine 10 ng/mL PCP 25 ng/mL THC Metabolites 50 ng/mL *Opiates 100 ng/mL Oxycodone 100 ng/mL Cocaine 150 ng/mL Benzodiazepines 150 ng/mL Methadone 200 ng/mL Barbiturates 200 ng/mL Tricyclic Antidepressants 300 ng/mL Amphetamines 500 ng/mL Methamphetamines 500 ng/mL *Includes related compounds: Codeine 50 ng/mL Heroin 100 ng/mL Morphine 100 ng/mL Hydrocodone 400 ng/mL Hydromorphone 800 ng/mL Venlafaxine (Effexor) is a known cross reactant in the PCP assay. If clinically indicated, order PCP confirmation. us Irvin Moreno MD URINE Final Res ult [facility] [address] [place] [address], * (ABNORMAL) PROCALCITONIN (03/14/2025 2:48 AM CDT) PROCALCITONIN 3.38(H) ng/ml 03/14/2025 3:57 AM CDT [facility] Blood BLOOD SPECIMEN / Unknown Line/Port / Unknown 03/14/2025 2:48 AM CDT 03/14/2025 3:09 AM CDT Narrative [facility] - 03/14/2025 3:57 AM CDT Procalcitonin for initial assessment of Lower Respiratory Tract Infection: Results Interpretation <0.10 ng/mL Antibiotic therapy strongly discoraged. Indicates absent of bacterial infection. * 0.10 - 0.25 ng/mL Antibiotic therapy discouraged. Bacterial infection unlikely. * 0.26 - 0.50 ng/mL Antibiotic therapy encouraged. Bacterial infection possible. >0.50 ng/mL Antibiotic therapy strongly encouraged. Suggestive of presence of bacterial infection. *Antibiotic therapy should be considered regardless of PCT result if the patient is clinically unstable, is at high risk for adverse outcome, has strong evidence of bacterial pathogen, or the clinical context indicates antibiotic therapy is warranted. If antibiotics are withheld, reassess if symptoms persist/worsen and/or repeat PCT measurement within 6-24 hours. In order to assess treatment success and to support a decision to discontinue antibiotic therapy, follow up samples should be tested once every 1-2 days, based upon physician discretion taking into account patient's evolution and progress. Procalcitonin for initial assessment of severe sepsis risk: Results Interpretation <0.5 ng/ml A PCT level below 0.5 ng/ml on the first day of ICU admission is associated with a low risk for progression to severe sepsis and/or septic shock. > 2.0 ng/mL A PCT level above 2.0 ng/mL on the first day of ICU admission is associated with a high risk for progression to severe sepsis and/or septic shock. Note: Concentrations < 0.5 ng/mL do not exclude an infection, on account of localized infections (without systemic signs) which can be associated with such low concentrations, or a systemic infection in its initial stages(< 6 hours). Furthermore, increased procalcitonin can occur without infection. PCT concentrations between 0.5 and 2.0 ng/mL should be interpreted taking into account the patient's history. It is recommended to retest PCT within 6-24 hours if any concentrations < 2 ng/mL are obtained. us Brenden Osuna MD SEND OUTS Final Result Performing Organization Address [facility]/ZIP Co de Phone Number [facility] [address] [address], * (ABNORMAL) LD,TOTAL (03/13/2025 11:07 PM CDT) [facility] LD,TOTAL 489(H) 135 - 214 IU/L 03/14/2025 12:26 AM CDT [facility] Blood BLOOD SPECIMEN / Unknown Line/Port / Unknown 03/13/2025 11:07 PM CDT 03/13/2025 11:16 PM CDT us Estiven Brunner MD, PhD CHEMISTRY F inal Result Performing Organization Address City/[facility]/ZIP Co de Phone Number [facility] [address] [place] [phone], * APTT (03/13/2025 11:07 PM CDT) APTT 31 25 - 36 sec 03/13/2025 11:52 PM CDT [facility] Blood BLOOD SPECIMEN / Unknown Line/Port / Unknown 03/13/2025 11:07 PM CDT 03/13/2025 11:15 PM CDT Narrative [facility] - 03/13/2025 11:52 PM CDT Therapeutic Range: 59-89 seconds Estiven Brunner MD, PhD HEMATOLOGY F inal Result [facility] [address] [place] [address], [place] * (ABNORMAL) FIBRINOGEN,QUANTITATIVE (03/13/2025 11:07 PM CDT) Pathologist [facility] FIBRINOGEN,ANI NTITATIVE 522(H) 193 - 401 mg/dL 03/13/2025 11:52 PM CDT [facility] Blood BLOOD SPECIMEN / Unknown Line/Port / Unknown 03/13/2025 11:07 PM CDT 03/13/2025 11:15 PM CDT Estiven Brunner MD, PhD HEMATOLOGY F inal Result Performing Organization Address City/[facility]/ZIP Co de Phone Number [facility] [address] [place] [address], [place] * (ABNORMAL) D-DIMER,QUANTITATIVE (03/13/2025 11:07 PM CDT) Pathologist [facility] D-DIMER,QUANTI TATIVE 6.51 See comment FEU mcg/mL 03/13/2025 11:52 PM CDT [facility] D-DIMER INTERP Abnormal( A) 03/13/2025 11:52 PM CDT [facility] Blood BLOOD SPECIMEN / Unknown Line/Port / Unknown 03/13/2025 11:07 PM CDT 03/13/2025 11:15 PM CDT Narrative [facility] - 03/13/2025 11:52 PM CDT The cut off value for exclusion of Deep Vein Thrombosis and / or Pulmonary Embolism is 0.50 FEU mcg/mL For patients greater than 50 years of age the upper limit is age dependent and was calculated with the formula: (PATIENT AGE x 0.01) FEU mcg/mL = Upper limit of normal range Estiven Brunner MD, PhD HEMATOLOGY F inal Result [facility] [address] [place] [address], * (ABNORMAL) PRO-BNP (03/13/2025 11:07 PM CDT) Only the most recent of2 resultswithin the time period is included. [facility] PRO-BNP 668(H) <125 pg/mL 03/13/2025 11:53 PM CDT [facility] Blood BLOOD SPECIMEN / Unknown Line/Port / Unknown 03/13/2025 11:07 PM CDT 03/13/2025 11:16 PM CDT Narrative [facility] - 03/13/2025 11:53 PM CDT The following cut-points have been suggested for the use of proBNP for the diagnostic evaluation of heart failure (HF) in patient with acute dyspnea. Patients with eGFR >= 60 Diagnosis (rule in CHF) <50 Years Old 450 pg/mL 50 - 75 Years Old 900 pg/mL >75 Years Old 1800 pg/mL Exclusion (rule out CHF) Age Independent 300 pg/mL A cutoff of 1200 pg/mL for patients with an eGFR <60 yields a diagnostic sensitivity of 89% and specificity of 72% for acute congestive heart failure. Estiven Brunner MD, PhD SEND OUTS F inal Result [facility] [address] [place] [address], [place] * NM BONE SCAN WHOLE BODY (03/10/2025 3:40 PM CDT) Anatomical Region Laterality Modality SKELETON Other Impressions 03/11/2025 11:05 AM CDT Degenerative appearing skeletal uptake as above. Signed by: Opal Nolan MD @03/11/2025 7:25:12 AM Narrative 03/11/2025 11:05 AM CDT For Patients: As a result of the Cures Act, medical imaging exams and procedure reports are released immediately into your electronic medical record. You may view this report before your referring provider. If you have questions, please contact your health care provider. NM BONE SCAN WHOLE BODY, 03/10/2025 INDICATION: Small-cell lung cancer. COMPARISON: None. RADIOPHARMACEUTICAL: 26.7 mCi Tc-99m-MDP intravenously. TECHNIQUE: 3 to 4 hours after radiotracer injection, whole body bone scan was performed in anterior and posterior projections. Additional dedicated bilateral lateral chest scintigraphy is performed. FINDINGS: Asymmetric focal uptake in a right mid cervical facet, the left 1st costochondral junction, and the left patella. No convincing scintigraphic findings of osseous metastasis. Physiologic activity in both kidneys and the urinary bladder. Ryan León MD NM Final Resul t * MR BRAIN W/WO CONTRAST (03/10/2025 2:40 PM CDT) Anatomical Region Laterality Modality BRAIN, HEAD Magnetic Resonan ce 03/10/2025 3:32 PM CDT Narrative 03/10/2025 3:32 PM CDT For Patients: As a result of the Cures Act, medical imaging exams and procedure reports are released immediately into your electronic medical record. You may view this report before your referring provider. If you have questions, please contact your health care provider. Indication: Small-cell lung cancer, staging Technique: Multiplanar, multisequence MRI of the brain obtained without and with contrast. A total of 15 mL of Dotarem IV contrast was administered. Comparison: MRI brain 09/09/2024 Findings: Patient motion artifact degrades image quality and limits evaluation, particularly across the postcontrast sequences. No abnormal restricted diffusion, intra or extra-axial fluid collection. No midline shift no mass effect, hydrocephalus or herniation. Chronic lacunar infarct at the right posterior basal ganglia. Scattered small FLAIR hyperintense foci throughout the cerebral white matter and central stephanie, typical of chronic microangiopathy. No convincing pathologic intracranial enhancement identified to suggest metastatic disease given motion artifact limitations. Midline structures are unremarkable. Major expected intracranial arterial flow voids are visualized. Completely opacified and atelectatic right maxillary sinus with inferior bowing of the right orbital floor and increased orbital volume. This appears chronic and stable from prior exam. No significant hypoglobus or enophthalmos is apparent on the provided images. Remaining paranasal sinuses and mastoid air cells have a normal signal. Nonspecific periarticular enhancement at the right C2-3 facet joint on the coronal and sagittal postcontrast sequences. Impression: 1. No acute intracranial abnormality. No convincing evidence of intracranial metastases given limitations from patient motion artifact. 2. Similar mild generalized cerebral volume loss, mild chronic microangiopathy changes, and chronic right posterior basal ganglia lacunar infarct. 3. Nonspecific periarticular enhancement at the right C2-3 facet joint, potentially degenerative/inflammatory. Contrast-enhanced MRI cervical spine could be obtained for further characterization if clinically indicated. 4. Opacified, atelectatic right maxillary sinus with inferior bowing of the orbital floor and increased orbital volume, suggesting silent sinus syndrome. Dictated by Marcela Hernández MD @ 03/10/2025 3:32:27 PM (Electronically Signed) Procedure Note Marcela Hernández, - 03/10/2025 For Patients: As a result of the 21st Century Cures Act, medical imagingexams and procedure reports are released immediately into your electronicmedical record. You may view this report before your referring provider.If you have questions, please contact your health care provider. Indication: Small-cell lung cancer, staging Technique: Multiplanar, multisequence MRI of the brain obtained without and withcontrast. A total of 15 mL of Dotarem IV contrast was administered. Comparison: MRI brain 09/09/2024 Findings: Patient motion artifact degrades image quality and limits evaluation,particularly across the postcontrast sequences. No abnormal restricted diffusion, intra or extra-axial fluid collection.No midline shift no mass effect, hydrocephalus or herniation. Chroniclacunar infarct at the right posterior basal ganglia. Scattered smallFLAIR hyperintense foci throughout the cerebral white matter and centralpons, typical of chronic microangiopathy. No convincing pathologicintracranial enhancement identified to suggest metastatic disease givenmotion artifact limitations. Midline structures are unremarkable. Majorexpected intracranial arterial flow voids are visualized. Completely opacified and atelectatic right maxillary sinus with inferiorbowing of the right orbital floor and increased orbital volume. Thisappears chronic and stable from prior exam. No significant hypoglobus orenophthalmos is apparent on the provided images. Remaining paranasalsinuses and mastoid air cells have a normal signal. Nonspecificperiarticular enhancement at the right C2-3 facet joint on the coronal andsagittal postcontrast sequences. Impression: 1. No acute intracranial abnormality. No convincing evidence ofintracranial metastases given limitations from patient motion artifact. 2. Similar mild generalized cerebral volume loss, mild chronicmicroangiopathy changes, and chronic right posterior basal ganglia lacunarinfarct. 3. Nonspecific periarticular enhancement at the right C2-3 facet joint,potentially degenerative/inflammatory. Contrast-enhanced MRI cervicalspine could be obtained for further characterization if clinicallyindicated. 4. Opacified, atelectatic right maxillary sinus with inferior bowing ofthe orbital floor and increased orbital volume, suggesting silent sinussyndrome. Dictated by Marcela Hernández MD @ 03/10/2025 3:32:27 PM (Electronically Signed) Ryan León MD MR Final Resul t * (ABNORMAL) ONCOLOGY ABSOLUTE NEUTROPHIL COUNT (03/04/2025 9:44 AM CDT) Only the most recent of3 resultswithin the time period is included. WHITE BLOOD COUNT 6.9 4.5 - 11.0 thou/cu mm 03/04/2025 5:32 PM CDT [facility] RED BLOOD COUNT 3.19(L) 4.00 - 5.20 mil/cu mm 03/04/2025 5:32 PM CDT [facility] HEMOGLOBIN 10.1(L) 12.0 - 16.0 g/dL 03/04/2025 5:32 PM CDT [facility] HEMATOCRIT 33.0 33.0 - 51.0 % 03/04/2025 5:32 PM CDT [facility] MCV 103(H) 80 - 100 fL 03/04/2025 5:32 PM CDT [facility] MCH 31.7 26.0 - 34.0 pg 03/04/2025 5:32 PM CDT [facility] MCHC 30.6(L) 32.0 - 36.0 g/dL 03/04/2025 5:32 PM CDT [facility] RDW 17.5(H) 11.5 - 15.5 % 03/04/2025 5:32 PM CDT [facility] PLATELET COUNT 262 140 - 440 thou/cu mm 03/04/2025 5:32 PM CDT [facility] MPV 10.3 6.5 - 11.0 fL 03/04/2025 5:32 PM CDT [facility] % NEUT 67.5 % 03/04/2025 5:32 PM CDT [facility] % LYMPH 18.8 % 03/04/2025 5:32 PM CDT [facility] % MONO 11.5 % 03/04/2025 5:32 PM CDT [facility] % EOS 1.0 % 03/04/2025 5:32 PM CDT [facility] % BASO 0.6 % 03/04/2025 5:32 PM CDT [facility] ONCOLOGY ABSOLUTE NEUTROPHILS 4.6 1.7 - 7.0 thou/cu mm 03/04/2025 5:32 PM CDT [facility] % IMMATURE GRAN (METAS,MYELOS,SD OS) 0.6 % 03/04/2025 5:32 PM CDT [facility] ABSOLUTE LYMPHOCYTES 1.3 0.9 - 2.9 thou/cu mm 03/04/2025 5:32 PM CDT [facility] ABSOLUTE MONOCYTES 0.8 <0.9 thou/cu mm 03/04/2025 5:32 PM CDT [facility] ABSOLUTE EOSINOPHILS 0.1 <0.5 thou/cu mm 03/04/2025 5:32 PM CDT [facility] ABSOLUTE BASOPHILS 0.0 <0.3 thou/cu mm 03/04/2025 5:32 PM CDT [facility] ABSOLUTE IMMATURE GRANULOCYTES(MET ,MYELOS,PROS) 0.0 <0.3 thou/cu mm 03/04/2025 5:32 PM CDT [facility] NRBC 0.0 % 03/04/2025 5:32 PM CDT [facility] ABS NRBC 0.0 thou /cu mm 03/04/2025 5:32 PM CDT [facility] Blood BLOOD SPECIMEN / Unknown Line/Port / Unknown 03/04/2025 9:44 AM CDT 03/04/2025 9:53 AM CDT Narrative [facility] - 03/04/2025 5:32 PM CDT Includes CBC and differential. us Ryan León MD HEMATOLOGY Final Resul t [facility] [address] [place] [address], * ANTI HBC (03/04/2025 9:44 AM CDT) ANTI HBC Non-React mele Non-React mele 03/04/2025 6:13 PM CDT [facility] Comment:Anti-HBc Antibodies not detected. Does not exclude the possibility of exposure to or infection with HBV. Levels of Anti-HBc may be below the cut-off in early infection. Blood BLOOD SPECIMEN / Unknown Line/Port / Unknown 03/04/2025 9:44 AM CDT 03/04/2025 10:53 AM CDT Ryan León MD SEND OUTS Final Resul t [facility] [address] [place] [address], [place] * TSH WITH REFLEX (02/12/2025 10:19 AM CDT) Only the most recent of2 resultswithin the time period is included. TSH 3.19 0.27 - 4.20 uIU/mL 02/12/2025 10:58 AM CDT [facility] Blood BLOOD SPECIMEN / Unknown Line/Port / Unknown 02/12/2025 10:19 AM CDT 02/12/2025 10:24 AM CDT [facility] - 02/12/2025 10:58 AM CDT In Adults, TSH values between 5.00 and 10.00 uIU/ml do not necessarily indicate the presence of Hypothyroidism. Correlation with clinical findings such as presence of goiter and/or Thyroperoxidase (TPO) Antibody may be helpful. For more information please refer to MANE 2004; 291: [phone]. Sahra Parker NP CHEMISTRY Final Result Performing Organization Address [facility] Co de Phone Number [facility] [address] [place] [phone] * TSH (01/21/2025 2:36 PM CDT) TSH 1.40 0.27 - 4.20 uIU/mL 01/21/2025 3:11 PM CDT [facility] Blood BLOOD SPECIMEN / Unknown Line/Port / Unknown 01/21/2025 2:36 PM CDT 01/21/2025 2:42 PM CDT Narrative [facility] - 01/21/2025 3:11 PM CDT In Adults, TSH values between 5.00 and 10.00 uIU/ml do not necessarily indicate the presence of Hypothyroidism. Correlation with clinical findings such as presence of goiter and/or Thyroperoxidase (TPO) Antibody may be helpful. For more information please refer to MANE 2004; 291: [phone]. Sahra Parker NP CHEMISTRY Final Result [facility] [address] [place] [address] * (ABNORMAL) HEMOGLOBIN A1C (01/16/2025 1:11 PM CDT) HEMOGLOBIN A1C 5.7(H) <5.7 % [facility] Comment: For someone without known diabetes, a hemoglobin A1c value between 5.7% and 6.4% is consistent with prediabetes and should be confirmed with a follow-up test. For someone with known diabetes, a value <7% indicates that their diabetes is well controlled. A1c targets should be individualized based on duration of diabetes, age, comorbid conditions, and other considerations. This assay result is consistent with an increased risk of diabetes. Currently, no consensus exists regarding use of hemoglobin A1c for diagnosis of diabetes for children. Blood BLOOD SPECIMEN / Unknown 01/16/2025 1:11 PM CDT 01/16/2025 1:12 PM CDT Narrative [facility] - 01/17/2025 7:19 AM CDT FASTING:NO FASTING: NO Carola Deshpande DO CHEMISTRY Final Result Performing Organization Address City/[facility]/ZIP Co de Phone Number [facility] [address] [place] [address], [facility] [address] [place] [address] * (ABNORMAL) LIPID PANEL W REFLEX MEASURED LDL (01/16/2025 1:11 PM CDT) CHOLESTEROL, TOTAL 255(H) <200 mg/dL [facility] HDL CHOLESTEROL 56 > OR = 50 mg/dL [facility] TRIGLYCERIDES 267(H) <150 mg/dL [facility] Comment: If a non-fasting specimen was collected, consider repeat triglyceride testing on a fasting specimen if clinically indicated. Viola et al. J. of Clin. Lipidol. 2015;9:129-169. LDL-CHOLESTEROL 155(H) mg/dL (calc) [facility] [employer] [facility] Comment: Reference range: <100 Desirable range <100 mg/dL for primary prevention; <70 mg/dL for patients with CHD or diabetic patients with > or = 2 CHD risk factors. LDL-C is now calculated using the Tom calculation, which is a validated novel method providing better accuracy than the Friedewald equation in the estimation of LDL-C. Petr STONER et al. MANE. 2013;310(19): 9947-1410 (http://education.PublicVine/faq/KKA986) CHOL/HDLC RATIO 4.6 <5.0 (calc) [facility] NON HDL CHOLESTEROL 199(H) <130 mg/dL (calc) [employer] [facility] Comment: For patients with diabetes plus 1 major ASCVD risk factor, treating to a non-HDL-C goal of <100 mg/dL (LDL-C of <70 mg/dL) is considered a therapeutic option. Blood BLOOD SPECIMEN / Unknown 01/16/2025 1:11 PM CDT 01/16/2025 1:12 PM CDT Narrative [facility] - 01/17/2025 4:36 AM CDT FASTING:NO FASTING: NO Carola Deshpande DO CHEMISTRY Final Result [employer] [facility] [address] [place] [address], [facility] [address] [place] [address] * (ABNORMAL) CBC AND DIFFERENTIAL (01/16/2025 1:11 PM CDT) [facility] WHITE BLOOD CELL COUNT 10.1 3.8 - 10.8 Thousand/u L VOSS scott Lopez RED BLOOD CELL COUNT 4.44 3.80 - 5.10 Million/uL [facility] HEMOGLOBIN 13.1 11.7 - 15.5 g/dL [facility] HEMATOCRIT 43.0 35.0 - 45.0 % [facility] MCV 96.8 80.0 - 100.0 fL [facility] MCH 29.5 27.0 - 33.0 pg [facility] MCHC 30.5(L) 32.0 - 36.0 g/dL [facility] Comment: For adults, a slight decrease in the calculated MCHC value (in the range of 30 to 32 g/dL) is most likely not clinically significant; however, it should be interpreted with caution in correlation with other red cell parameters and the patient's clinical condition. RDW 24.3(H) 11.0 - 15.0 % [facility] PLATELET COUNT 281 140 - 400 Thousand/u L [facility] MPV 10.4 7.5 - 12.5 fL [facility] ABSOLUTE NEUTROPHILS 9,504(H) 1,500 - 7,800 cells/uL [facility] ABSOLUTE LYMPHOCYTES 434(L) 850 - 3,900 cells/uL [facility] ABSOLUTE MONOCYTES 131(L) 200 - 950 cells/uL [facility] ABSOLUTE EOSINOPHILS 20 15 - 500 cells/uL [facility] ABSOLUTE BASOPHILS 10 0 - 200 cells/uL [facility] NEUTROPHILS 94.1 % [facility] LYMPHOCYTES 4.3 % [facility] MONOCYTES 1.3 % [facility] EOSINOPHILS 0.2 % [facility] BASOPHILS 0.1 % [facility] CBC (INCLUDES DIFF/PLT) COMMENTS [facility] Comment: Review of peripheral smear confirms automated results. Blood BLOOD SPECIMEN / Unknown 01/16/2025 1:11 PM CDT 01/16/2025 1:12 PM CDT Narrative [facility] - 01/17/2025 4:17 AM CDT FASTING:NO FASTING: NO Carola Montemayorn Jeramy DO HEMATOLOGY Final Result Performing Organization Address [facility]/ZIP Co de Phone Number [facility] [address] [place] [address], [place] [phone] [facility] [address] [place] [address] * URINE ALBUMIN TO CREATININE RATIO, RANDOM (01/16/2025 11:23 AM CDT) ALB RAND URINE <12.0 mg/L 01/16/2025 11:08 PM CDT [facility] CREATININE,URINE 0.21 g/L 01/17/20 11:08 PM CDT [facility] ALBUMIN TO CREATININE RATIO,RAND UR 01/16/2025 11:08 PM CDT [facility] Comment:Urine Albumin below measurement range, unable to calculate. Urine URINE SPECIMEN / Unknown Non-Blood / Unknown 01/16/2025 11:23 AM CDT 01/16/2025 11:23 AM CDT Narrative [facility] - 01/16/2025 11:08 PM CDT If Albumin to Creatinine Ratio is elevated, consider the following: Elevations seen with incipient nephropathy associated with diabetes mellitus or hypertension. Stress, exercise,hematuria, and urinary tract infection may also produce elevated results. If clinically indicated, confirm with 24 Hour Albumin to Creatinine Ratio. Carola Kotharim DO URINE Final Result Performing Organization Address [facility]/ZIP Co de Phone Number [facility] [address] [place] [address], [place] * ECHO TTE COMPLETE WO CONTRAST (01/12/2025 11:07 AM CDT) AORTIC VALVE MEAN PG 3 mmHg EJECTION FRACTION 36 % PEAK TR VELOCITY 3.2 m/s LVEDD 5.4 cm EJECTION FRACTION 35 - 40% Anatomical Region Laterality Modality Other 01/12/2025 9:04 AM CDT Narrative 01/12/2025 12:22 PM CDT ECHOCARDIOGRAM JESSICA SWEENEY : 1965 59 years Study Date: 01/12/2025 9:04:03 AM Gender: F BP: 161/69 mmHg Height: 157.48 cm BSA: 1.73 m Weight: 72.12 kg Tech: W Referring JAYNE WOLFE MD: YURI Site: [facility] Reading Location: Mobile- Patient Location: Inpatient. Procedure: 2D, Color Doppler and Spectral Doppler. Indication for study: Dyspnea/ SOB Cardiac Rhythm: Normal sinus.Study quality: Good. Final Impressions: 1. LVEF estimate 35-40%. 2. Moderately reduced RV function. 3. Idgpjueq-sw-sjlrxo MR. 4. Sclerotic and thickened mitral valve. MG 6-7 mmHg, HR 83 bpm. 5. Mild LAE. 6. Catheter/lead in the RA. Chamber Sizes and Function Left atrial size is mildly enlarged. Right ventricular cavity size is normal, global systolic RV function is moderately reduced. The right atrium is normal. Right atrial volume index is 23 ml/m . Right atrial area is 14 cm . The pulmonary artery is not well visualized. The sinus of Valsalva is normal sized. The ascending aorta is normal sized. Valves, RV Pressures and Diastolic Function The aortic valve is trileaflet and sclerotic, no stenosis and no regurgitation. The mitral valve is sclerotic, moderate to severe mitral regurgitation. No mitral annular calcification seen. Indeterminate pattern of LV diastolic filling. The tricuspid valve is normal in structure, mild tricuspid regurgitation. The tricuspid regurgitant velocity is 3.2 m/s, the estimated right ventricular systolic pressure is 41 mmHg plus right atrial pressure. There is mildly increased estimated pulmonary pressure by tricuspid regurgitation velocity and right atrial pressure. The pulmonic valve is not well visualized. Trace pulmonary regurgitation. Masses, Effusion, Shunts There is no pericardial effusion. The inferior vena cava is normal sized, respiratory size variation greater than 50%. No left to right shunting was detected by limited color flow Doppler interrogation of the interatrial septum. MEASUREMENTS AND CALCULATIONS 2-D Measurements and LV Function: LVID (d) 5.4 cm LV FS% (2D) 19 % LVID (s) 4.4 cm LVOT diameter 2.0 cm IVS (d) 0.9 cm HR 85 bpm LVPW (d) 1.3 cm LA Vol index 37 ml/m2 Ao Sinus 3.1 cm RA Vol index 23 ml/m2 Ao Sinus ULN 3.7 cm RA area 14 cm Asc Ao 2.9 cm RV Basal Diam 4.0 cm Asc Ao ULN 3.8 cm RV Mid Diam 2.9 cm LA 4.5 cm Diastology: Mitral Tissue Doppler E Peak 1.8 m/s e', Septum 0.06 m/s A Peak 1.5 m/s e', Lateral 0.07 m/s E/A 1.2 E/e' Average 27.64 DT 209 msec Aortic Valve: Vmax 1.1 m/s MARLENE (V) 1.66 cm VTI 0.24 m MARLENE (I) 1.62 cm LVOT V max 0.6 m/s Max PG 5 mmHg LVOT VTI 0.12 m Mean PG 3 mmHg SV 39 ml Dim Index 0.52 SV index 23 ml/m CO 3.3 l/min CI 1.9 l/min/m Mitral Valve: MVA 3.6 cm MV P 1/2 61 msec MV Mean G 7 mmHg Tricuspid Valve and estimated PA pressures: TR Vmax 3.2 m/s TAPSE 1.3 cm TR maxG 41 mmHg TV Annulus 3.8 cm . This study was interpreted by an [facility] accredited facility. CC: Opal Cary, Carola Deshpande. Final Procedure Note hCandan Lott MD - 01/12/2025 ECHOCARDIOGRAM JESSICA SWEENEY : 1965 59 years Study Date: 01/12/2025 9:04:03 AM Gender: F BP: 161/69 mmHg Height: 157.48 cm BSA: 1.73 m Weight: 72.12 kg Tech: MBW Referring JAYNE WOLFE MD: YURI Site: [facility]) Reading Location: [place]- Patient Location: Inpatient. Procedure: 2D, Color Doppler and Spectral Doppler. Indication for study: Dyspnea/ SOB Cardiac Rhythm: Normal sinus.Study quality: Good. Final Impressions: 1. LVEF estimate 35-40%. 2. Moderately reduced RV function. 3. Cjhqpbqj-sw-omvniu MR. 4. Sclerotic and thickened mitral valve. MG 6-7 mmHg, HR 83 bpm. 5. Mild LAE. 6. Catheter/lead in the RA. Chamber Sizes and Function Left atrial size is mildly enlarged. Right ventricular cavity size isnormal, global systolic RV function is moderately reduced. The rightatrium is normal. Right atrial volume index is 23 ml/m . Right atrialarea is 14 cm . The pulmonary artery is not well visualized. The sinus ofValsalva is normal sized. The ascending aorta is normal sized. Valves, RV Pressures and Diastolic Function The aortic valve is trileaflet and sclerotic, no stenosis and noregurgitation. The mitral valve is sclerotic, moderate to severe mitralregurgitation. No mitral annular calcification seen. Indeterminate patternof LV diastolic filling. The tricuspid valve is normal in structure, mildtricuspid regurgitation. The tricuspid regurgitant velocity is 3.2 m/s,the estimated right ventricular systolic pressure is 41 mmHg plus rightatrial pressure. There is mildly increased estimated pulmonary pressure bytricuspid regurgitation velocity and right atrial pressure. The pulmonicvalve is not well visualized. Trace pulmonary regurgitation. Masses, Effusion, Shunts There is no pericardial effusion. The inferior vena cava is normal sized,respiratory size variation greater than 50%. No left to right shunting wasdetected by limited color flow Doppler interrogation of the interatrialseptum. MEASUREMENTS AND CALCULATIONS 2-D Measurements and LV Function: LVID (d) 5.4 cm LV FS% (2D) 19 % LVID (s) 4.4 cm LVOT diameter 2.0 cm IVS (d) 0.9 cm HR 85 bpm LVPW (d) 1.3 cm LA Vol index 37 ml/m2 Ao Sinus 3.1 cm RA Vol index 23 ml/m2 Ao Sinus ULN 3.7 cm RA area 14 cm Asc Ao 2.9 cm RV Basal Diam 4.0 cm Asc Ao ULN 3.8 cm RV Mid Diam 2.9 cm LA 4.5 cm Diastology: Mitral Tissue Doppler E Peak 1.8 m/s e', Septum 0.06 m/s A Peak 1.5 m/s e', Lateral 0.07 m/s E/A 1.2 E/e' Average 27.64 DT 209 msec Aortic Valve: Vmax 1.1 m/s MARLENE (V) 1.66 cm VTI 0.24 m MARLENE (I) 1.62 cm LVOT V max 0.6 m/s Max PG 5 mmHg LVOT VTI 0.12 m Mean PG 3 mmHg SV 39 ml Dim Index 0.52 SV index 23 ml/m CO 3.3 l/min CI 1.9 l/min/m Mitral Valve: MVA 3.6 cm MV P 1/2 61 msec MV Mean G 7 mmHg Tricuspid Valve and estimated PA pressures: TR Vmax 3.2 m/s TAPSE 1.3 cm TR maxG 41 mmHg TV Annulus 3.8 cm . This study was interpreted by an [facility] accredited facility. CC: Opal Cary, Carola Deshpande. Final Jayne Helton MD ECH O ORD Final Result * SODIUM (01/11/2025 6:00 AM CDT) Only the most recent of2 resultswithin the time period is included. SODIUM 142 136 - 145 mmol/L 01/11/2025 1:00 PM CDT [facility] Blood BLOOD SPECIMEN / Unknown Line/Port / Unknown 01/11/2025 6:00 AM CDT 01/11/2025 6:08 AM CDT Jayne Helton MD SANDEE ZACHARY Final Result [facility] [address] [place] [address] * POTASSIUM (01/11/2025 6:00 AM CDT) Only the most recent of3 resultswithin the time period is included. POTASSIUM 4.1 3.5 - 5.1 mmol/L 01/11/2025 6:53 AM T [facility] Blood BLOOD SPECIMEN / Unknown Line/Port / Unknown 01/11/2025 6:00 AM CDT 01/11/2025 6:08 AM CDT us Bri Reyes RN CHEMISTRY Final Result [facility] [address] [place] [address] * SCAN-CARDIAC STRIP (01/09/2025 4:24 PM CDT) us Scanner OTHER Final Result * (ABNORMAL) CBC W PLT NO DIFF (01/09/2025 6:35 AM CDT) WHITE BLOOD COUNT 12.0(H) 4.5 - 11.0 thou/cu mm 01/09/2025 7:44 AM [facility] RED BLOOD COUNT 3.65(L) 4.00 - 5.20 mil/cu mm 01/09/2025 7:44 AM [facility] HEMOGLOBIN 10.1(L) 12.0 - 16.0 g/dL 01/09/2025 7:44 AM [facility] HEMATOCRIT 37.0 33.0 - 51.0 % 01/09/2025 7:44 AM [facility] MCV 101(H) 80 - 100 fL 01/09/2025 7:44 AM [facility] MCH 27.7 26.0 - 34.0 pg 01/09/2025 7:44 AM [facility] MCHC 27.3(L) 32.0 - 36.0 g/dL 01/09/2025 7:44 AM [facility] RDW 26.8(H) 11.5 - 15.5 % 01/09/2025 7:44 AM [facility] PLATELET COUNT 194 140 - 440 thou/cu mm 01/09/2025 7:44 AM [facility] MPV 10.2 6.5 - 11.0 fL 01/09/2025 7:44 AM CDT [facility] Blood BLOOD SPECIMEN / Unknown Line/Port / Unknown 01/09/2025 6:35 AM CDT 01/09/2025 7:09 AM CDT us Jayne Helton MD HEM ATOLOGY Final Result [facility] [address] [place] [address] * SCAN-CARDIAC STRIP (01/08/2025 3:38 PM CDT) us Scanner OTHER Final Result * SCAN-CARDIAC STRIP (01/08/2025 12:29 PM CDT) us Scanner OTHER Final Result * US VENOUS LOWER EXTREMITY BILATERAL (01/08/2025 10:29 AM CDT) Anatomical Region Laterality Modality LEGS, LEG L, LEG R Ultrasound 01/08/2025 10:4 8 AM CDT Narrative 01/08/2025 10:48 AM CDT For Patients: As a result of the Cures Act, medical imaging exams and procedure reports are released immediately into your electronic medical record. You may view this report before your referring provider. If you have questions, please contact your health care provider. Indication: Bilateral lower extremity swelling Technique: Grayscale, grayscale compression, color Doppler, spectral Doppler and augmentation technique was utilized for evaluating the bilateral lower extremity venous system. Comparison: None Findings: The following veins were studied bilaterally showed no evidence of thrombosis: Common femoral vein, femoral vein, popliteal vein, posterior tibial vein and peroneal vein. Edema is noted bilaterally primarily involving the calves. Impression: No evidence of deep venous thrombosis in either lower extremity Dictated by Jeffery Gomez MD @ 01/08/2025 10:48:59 AM (Electronically Signed) Procedure Note Jeffery Gomez MD - 01/08/2025 For Patients: As a result of the s Act, medical imagingexams and procedure reports are released immediately into your electronicmedical record. You may view this report before your referring provider.If you have questions, please contact your health care provider. Indication: Bilateral lower extremity swelling Technique: Grayscale, grayscale compression, color Doppler, spectral Doppler andaugmentation technique was utilized for evaluating the bilateral lowerextremity venous system. Comparison: None Findings: The following veins were studied bilaterally showed no evidence ofthrombosis: Common femoral vein, femoral vein, popliteal vein, posteriortibial vein and peroneal vein. Edema is noted bilaterally primarily involving the calves. Impression: No evidence of deep venous thrombosis in either lower extremity Dictated by Jeffery Gomez MD @ 01/08/2025 10:48:59 AM (Electronically Signed) us Shaista Fenton MD US Final Res ult * XR CHEST 2 VIEWS PA AND LATERAL (01/08/2025 9:19 AM CDT) Anatomical Region Laterality Modality CHEST, THORAX, Lung, HEART Digit al Radiography 01/08/2025 9:31 AM CDT Impressions 01/08/2025 9:31 AM CDT 1. Unchanged enlargement of the heart. 2. Port normally located. 3. Multifocal airspace disease bilaterally, right greater than left. Possible small right effusion. The appearance has generally improved. Dictated by Jeffery Gomez MD @ 01/08/2025 9:31:12 AM (Electronically Signed) Narrative 01/08/2025 9:31 AM CDT For Patients: As a result of the Cures Act, medical imaging exams and procedure reports are released immediately into your electronic medical record. You may view this report before your referring provider. If you have questions, please contact your health care provider. INDICATION: Evaluate lung infiltrate COMPARISON: October 07, 2024 TECHNIQUE: PA and lateral views of the chest were acquired FINDINGS: TUBES AND LINES: Port normally located. HEART AND MEDIASTINUM: Unchanged enlargement of the heart. LUNGS AND PLEURAL SPACES: Multifocal airspace disease bilaterally, right greater than left generally improved.Possible small right effusion. No pneumothorax OSSEOUS STRUCTURES: Demineralized osseous structures and degenerative change Procedure Note Jeffery Gomez MD - 01/08/2025 For Patients: As a result of the 21st Century Cures Act, medical imagingexams and procedure reports are released immediately into your electronicmedical record. You may view this report before your referring provider.If you have questions, please contact your health care provider. INDICATION: Evaluate lung infiltrate COMPARISON: October 07, 2024 TECHNIQUE: PA and lateral views of the chest were acquired FINDINGS: TUBES AND LINES: Port normally located. HEART AND MEDIASTINUM: Unchanged enlargement of the heart. LUNGS AND PLEURAL SPACES: Multifocal airspace disease bilaterally, rightgreater than left generally improved.Possible small right effusion. Nopneumothorax OSSEOUS STRUCTURES: Demineralized osseous structures and degenerativechange IMPRESSION: 1. Unchanged enlargement of the heart. 2. Port normally located. 3. Multifocal airspace disease bilaterally, right greater than left.Possible small right effusion. The appearance has generally improved. Dictated by Jeffery Gomez MD @ 01/08/2025 9:31:12 AM (Electronically Signed) us Shaista Fenton MD GENERAL IMAGING Final Res ult * CWS PATH REVIEW HEMATOLOGY (01/08/2025 8:30 AM CDT) PATH COMMENT Reviewed by LL on 01/10/2025 01/10/2025 10:45 AM CDT [facility] Blood BLOOD SPECIMEN / Unknown Line/Port / Unknown 01/08/2025 8:30 AM CDT 01/08/2025 8:37 AM CDT us Shaista Fenton MD LABORATORY Final Res ult [facility] [address] [place] [address], * EKG 12 Lead (01/08/2025 8:22 AM CDT) Interpretation Normal sinus rhythm with sinus arrhythmia Nonspecific ST abnormality Prolonged QT Abnormal ECG When compared with ECG of 20-Dec-2024 18:28, Nonspecific T wave abnormality has replaced inverted T waves in Lateral leads BEYOND NOW Ventricular Rate 97 BPM BEYOND NOW Atrial Rate 97 BPM BEYOND NOW P-R Interval 152 ms BEYOND NOW QRS Duration 86 ms BEYOND NOW QT 392 ms BEYOND NOW QTc 497 ms BEYOND NOW P Higbee 65 degrees BEYOND NOW R Higbee 58 degrees BEYOND NOW T Higbee 26 degrees BEYOND NOW 01/08/2025 8:22 AM CDT 01/08/2025 3:50 PM CDT Shaista Fenton MD EKG ORD Edited Re sult - Final BEYOND NOW [place], [place] * TRANSFUSE RBC (NURSE COMMUNICATION ORDER) (01/01/2025 2:56 PM CDT) Blood BLOOD SPECIMEN / Unknown Sahra Parker NP NURSING BLOOD BANK Final Result * RED BLOOD CELLS EA UNIT (01/01/2025 2:22 PM CDT) CROSSMATCH Compatible Compatible [facility] BLOOD B[facility] PRODUCT BLOOD TYPE O Rh Positive [facility] B[facility]OD B[facility] PRODUCT ID NUMBER [id number] [facility] BLOOD BANK PRODUCT STATUS Transfused [facility] BLOOD BANK PRODUCT DESCRIPTION RBC -1 LR Pt2 [facility] BLOOD BANK PRODUCT CODE [id number] [facility] BLOOD BANK ISSUE DATE/TIME 01/01/25 13:24 [facility] BLOOD BANK Sahra Parker NP BLOOD BANK Edited Result - Final Performing Organization Address City/[facility]/ZIP Co de Phone Number [facility] BLOOD BANK [address] [place] [address] * RBC W/O TYPE & SCREEN (01/01/2025 12:37 PM CDT) QUANTITY 1 01/01/2025 12:37 PM CDT [facility] BLOOD BANK Blood BLOOD SPECIMEN / Unknown 01/01/2025 12:25 PM CDT Sahra Parker NP BLOOD BANK Final Result [facility] BLOOD BANK [address] [place] [address] * TYPE & SCREEN (12/31/2024 2:22 PM CDT) Pathologist [facility] ABORH O Rh Positive 12/31/2024 3:48 PM CDT [facility] BLOOD BANK ANTIBODY SCREEN Negative Negative 12/31/2024 3:48 PM CDT [facility] BLOOD BANK SPECIMEN EXPIRATION DATE/TIME 01/03/25 23:59 12/31/2024 3:48 PM CDT [facility] BLOOD BANK Blood BLOOD SPECIMEN / Unknown Line/Port / Unknown 12/31/2024 2:22 PM CDT 12/31/2024 2:32 PM CDT us Sahra Parker NP BLOOD BANK Final Result Performing Organization Address [facility] Co de Phone Number [facility] BLOOD BANK [address] [place] [address] * VITAMIN B12 (12/31/2024 12:33 PM CDT) Pathologist [facility] VITAMIN B12 1,108 232 - 1,245 pg/mL 12/31/2024 11:55 PM CDT [facility] Blood BLOOD SPECIMEN / Unknown Line/Port / Unknown 12/31/2024 12:33 PM CDT 12/31/2024 12:36 PM CDT Narrative [facility] - 12/31/2024 11:55 PM CDT Biotin supplements may cause clinically significant interference for this test assay. If interference is suspected, it is strongly recommended that biotin is discontinued for at least one week prior to retesting. us Sahra Parker NP CHEMISTRY Final Result [facility] [address] [place] [address], [place] * (ABNORMAL) CREATININE (12/22/2024 8:09 AM CDT) Pathologist [facility] eGFR >90 >90 mL/min/1.7 3m2 12/22/2024 8:31 AM CDT [facility] Comment:As of 2021, eG FR is calculated by the CKD-EPI creatinine equation without race adjustment. eGFR can be influenced by muscle mass, exercise, and diet. The reported eGFR is an estimation only and is only applicable if the renal function is stable. CREATININE 0.41(L) 0.50 - 0.90 mg/dL 12/22/2024 8:31 AM CDT [facility] Blood BLOOD SPECIMEN / Unknown Line/Port / Unknown 12/22/2024 8:09 AM CDT 12/22/2024 8:12 AM CDT us Martin Gomez TRANSFORMER STOCK CLERK CHEMISTRY Fin al Result [facility] [address] [place] [address] * LC HIV-1/O/2, 4TH GENERATION (02/26/2023 12:47 PM CDT) HIV Scr 4th Gen Non Reactive Non Reactive 02/28/2023 2:08 PM CDT [facility] Comment: HIV Negative HIV-1/HIV-2 antibodies and HIV-1 p24 antigen were NOT detected. There is no laboratory evidence of HIV infection. Blood BLOOD SPECIMEN / Unknown Venipuncture / Unknown 02/26/2023 12:47 PM CDT 02/26/2023 12:50 PM CDT Narrative [facility] ([facility] - 02/28/2023 2:08 PM CDT Performed at: [address] [place] [id number] District Wildlife Manager: Gurdeep Mac MD, Phone: [phone] us Carola Deshpande DO LABORATORY Final Result [facility] ([facility]) [facility] [place] [address], * XR MAMMO BILAT SCREENING (11/08/2021 11:17 AM CDT) Anatomical Region Laterality Modality BREASTS, Breast Left, Breast Right Bilateral Mammography Impressions 11/09/2021 6:31 AM CDT There is no radiographic evidence for malignancy. Recommend annual mammograms. MAMMOGRAM ASSESSMENT: ACR 2 Benign PATIENTS: You will also receive a letter with your examination results in an easy to read format. If you have questions about your results, please contact your referring provider. Narrative 11/09/2021 6:31 AM CDT For Patients: As a result of the Century Cures Act, medical imaging exams and procedure reports are released immediately into your electronic medical record. You may view this report before your referring provider. If you have questions, please contact your health care provider. XR MAMMO BILAT SCREENING [[id number]] CLINICAL HISTORY: This is an asymptomatic 56 y.o. patient. INDICATION FOR EXAM: Mammogram Screening. TECHNIQUE: CC & MLO views were obtained. This study was evaluated with the assistance of Computer-Aided Detection. COMPARISON FILMS: Yes [facility] FINDINGS: The breasts have scattered areas of fibroglandular density. No suspicious masses or microcalcifications. Benign appearing mass(es) within right breast and Post biopsy changes right breast. us Carola Deshpande DO MAMMO Final Result * COLONOSCOPY (02/01/2018 1:28 PM CDT) 02/01/2018 [...] 1:28 PM Naveen Rubin DO PROCEDURE ORD Fi nal Result * [place] THIN PREP PAP SCREEN IMAGED (03/06/2011 10:30 AM CDT) CYTOLOGY CYTOPATHOLOGY REPORT [facility] Status: Final Status [id number] CLINICAL INFORMATION Last Date of LMP :Premenarcheal Last Pap Date :02-09-11 Last Pap Result :NIL ABN [place]/Bx Past 5 YRS :None Hormone Usage :BCP/OCP/Patch/Rin g Menstrual Status :Regular Periods [place]/Bx done today :No Additional Information :None given HPV Request :HPV if ASCUS SPECIMEN SOURCE :Cervical/vaginal ThinPrep Vial, screening SPECIMEN ADEQUACY :Satisfactory for evaluation Endocervical component present. INTERPRETATION/RES ULT Negative for intraepithelial lesion or malignancy (NIL) Cytology 1st Screener :shari Signed by :shari This specimen was screened by the FDA approved ThinPrep Imaging System and manually reviewed. NOTE: The Pap test is a screening technique, not a diagnostic procedure. It is used primarily to screen for squamous cancers and precursor lesions. Published studies have shown that it is subject to both false negative and false positive results. The pap test should not be used as the sole means to diagnose or exclude pre-malignant and malignant lesions. COLLECTED:03/06/11 ACCESSIONED: 03/07/11 SIGNED: 03/09/11 [facility] PAP [place] CODE NIL [facility] Cervical/Vaginal (Cervical/Vagina l) 03/06/2011 10:30 AM CDT 03/06/2011 10:29 AM CDT us Esther Duran NP PATHOLOGY/CYTOLOGY Final Result [facility] INTERNAL ZIP [id number] [place] [id number] * HEPATITIS C [[id number]] (08/29/2006 9:45 AM WEATHER CLERK) ANTI HCV Non-reactiv e [facility] Blood specimen (specimen) BLOOD SPECIMEN / Unknown 08/29/2006 9:45 AM WEATHER CLERK 08/29/2006 9:30 AM WEATHER CLERK Narrative [facility] - 08/31/2006 1:01 PM WEATHER CLERK Testing Performed By [place], [place] us Balbir Beltran DO SEND OUTS Final Res ult [facility] [address] [place] [address] from Last 3 Months or Most Recently Relevant to Health Maintenance Additional Health Concerns Infection Onset Date Last Indicated Rule-Out Stool Pathogen 03/21/2025 03/21/20 25 Insurance [facility] * Guarantor: [employer] [employer] [facility] Account Type Relation to Patient Date of Phone Billing Address Inmate Billing [address] [place] [address] Advance Directives * Full Code (Latest Code Status on File) Date Activated Date Inactivated Comments 03/13/2025 1:26 PM 03/16/2025 6:02 PM Question Answer Comments Code Status Discussion: Reviewed Preferences * Full Code Date Activated Date Inactivated Comments 01/08/2025 11:48 AM 01/12/2025 7:07 PM Question Answer Comments Code Status Discussion: Reviewed Preferences * Full Code Date Activated Date Inactivated Comments 12/20/2024 9:34 PM 12/22/2024 2:07 PM Question Answer Comments Code Status Discussion: Reviewed Preferences * Full Code Date Activated Date Inactivated Comments 11/18/2024 6:30 AM 11/18/2024 4:36 PM Question Answer Comments Code Status Discussion: Unable to Assess Preferences, Provider to review later * Full Code Date Activated Date Inactivated Comments 10/07/2024 12:42 PM 10/13/2024 4:51 PM Question Answer Comments Code Status Discussion: Reviewed Preferences Care Teams Aircraft Fueler Relationship Specialty Start Date End Date Caroal Deshpandedaniel [address] [facility] [place] [address] PCP - General Internal Medicine 03/01/23 Bradley Kumar MD Family Practice 10/25/11 Opal Astorga, JANAE [address] [place] [address] Nurse Navigator - Oncology Registered Nurse 09/15/24 Vern Ivy LGSW [address] [place] [address] 09/15/24 Sahra Parker, MARIANO [address] [place] [address] Oncology 09/15/24 Kimberly Cooney MD [address] [place], [place] [id number] Oncology 09/15/24
== END 2025-03-24 22:34 | disposition left against medical advice (07) ==
LOC: ED 21:40
PROVIDERS: Emergency Provider Family Medicine; PCP Internal Medicine
DX: M54.50 Low back pain, unspecified (principal); C34.90 Malignant neoplasm of unspecified part of unspecified bronchus or lung
CPT/HCPCS: 96372; 99283; A9270; J1885; J7512